=== PATIENT | female | born 1970 | race Caucasian/White ===

== ENCOUNTER 2020-04-03 13:36 | Outpatient (CLI) | payer OTHER, SELFPAY ==
--- NOTE | 2020-04-03 | ECHO_ITS ---
Patient Info Name: Zeny Johnson Age: 49 years : 1970 Gender: Female Ht: 66 in Wt: 273 lbs BSA: 2.47 m2 HR: 88 bpm BP: 127 / 81 mmHg Heart Rhythm: Sinus Rhythm Technical Quality: Good Exam Date: 04/03/2020 2:27 PM Exam Location: [facility] Patient Status: Outpatient Admit Date: 04/03/2020 Staff Ordering Physician: Marlene, Derick BREWER [employer] Attendant: Radha Noble RDCS Attending Provider: Marlene, Derick BREWER Referring Physician: Marlene POSADA; Exam Type: CA echo doppler color flow Study Info Indications - HOUSE Complete two-dimensional, color flow and Doppler transthoracic echocardiogram is performed. Summary 1. Left ventricular chamber dimension is normal. 2. Left ventricular systolic function is normal, estimated at 65-70%. 3. There is mildly increased left ventricular wall thickness. 4. Left ventricular septal wall motion is normal. 5. The left ventricular diastolic function is grade I diastolic dysfunction. 6. In some views, the right ventricular free wall appears to be abnormal. This is probably artifactual but recommend repeat study with Definity/Optison contrast or cardiac MRI for further evaluation. 7. Left atrial chamber dimension is mildly enlarged. 8. There is mild mitral valve regurgitation. 9. There is mild tricuspid valve regurgitation. Left Ventricle Left ventricular chamber dimension is normal. Left ventricular systolic function is normal, estimated at 65-70%. There is mildly increased left ventricular wall thickness. Left ventricular septal wall motion is normal. The left ventricular diastolic function is grade I diastolic dysfunction. Right Ventricle Right ventricular chamber dimension is normal. Right ventricular systolic function is normal. In some views, the right ventricular free wall appears to be abnormal. This is probably artifactual but recommend repeat study with Definity/Optison contrast or cardiac MRI for further evaluation. Left Atria Left atrial chamber dimension is mildly enlarged. Right Atria Right atrial chamber dimension is normal. Atrial Septum Intact interatrial septum visualized by color flow imaging. Aortic Valve The aortic valve is not well visualized. There is no aortic valve stenosis. There is trace aortic valve regurgitation. Pulmonic Valve The pulmonic valve is normal. There is no pulmonic valve stenosis. There is trace pulmonic regurgitation. Mitral Valve The mitral valve has thickened leaflets. There is no mitral valve stenosis. There is mild mitral valve regurgitation. Tricuspid Valve The tricuspid valve leaflets are normal. There is no significant tricuspid valve stenosis. There is mild tricuspid valve regurgitation. No pulmonary hypertension, estimated pulmonary arterial systolic pressure is 16 mmHg. Pericardium/Pleural The pericardium appears epicardial fat pad. There is no pericardial effusion. Inferior Vena Cava Normal inferior vena cava with >50% collapse upon inspiration consistent with normal right atrial pressure, 5 mmHg. Aorta The aortic root size at the sinus of Valsalva is normal. The prox ascending aorta size is normal. Left Ventricular Outflow Tract Name Value Normal LVOT 2D
== END 2020-04-03 13:37 | disposition home or self-care (01) ==
PROVIDERS: PCP Family Medicine; Visit Provider Physician Assistant
DX: R06.00 Dyspnea, unspecified (principal); I51.7 Cardiomegaly; I08.1 Rheumatic disorders of both mitral and tricuspid valves
CPT/HCPCS: 93306

== ENCOUNTER 2020-04-10 11:03 | Outpatient (CLI) | payer OTHER, SELFPAY ==
--- NOTE | 2020-04-15 13:45 | WPDPFTINT ---
PFT Interpretation PFT Interpretation: DOS: 04/10/2020 REQUESTING: DANIELLA Leone REASON FOR TESTING: Dyspnea PULMONARY FUNCTION TESTS Results are reproducible. Spirometry: FEV1 is 85%, normal. FVC 86%. FEV1% is 75%, normal. WAJ97-33% is 60%. No bronchodilator was given. Lung volumes: TLC 91%, normal. RV 89%, normal. Airway resistance is 174%, increased. Diffusion: DLCO 84%, normal. Flow volume loop: Normal. IMPRESSION: Mild increase in airway resistance. Minimal decrease in [id number]% which might represent small airways disease. No bronchodilator was given. A trial of bronchodilator may be considered. Lindsey Hinton MD
== END 2020-04-10 11:04 | disposition home or self-care (01) ==
PROVIDERS: PCP Family Medicine; Visit Provider Physician Assistant
DX: R06.00 Dyspnea, unspecified (principal); R94.2 Abnormal results of pulmonary function studies
CPT/HCPCS: 94375; 94726; 94729

== ENCOUNTER 2020-05-27 10:42 | Outpatient (CLI) | payer OTHER, SELFPAY ==
--- NOTE | ~2020-05-27 | MR_ITS ---
EXAMINATION: MR abdomen wo/w con DATE: 05/27/2020 11:59 INDICATION: Abnormal liver function tests. Liver masses. TECHNIQUE: Magnetic resonance imaging (MRI) of the abdomen was performed without and with 20 mL Multi Jocelyn intravenous contrast. Sequences included coronal T2-weighted FS FSE, coronal and axial FS FIEST A, axial T2-weighted FSE, coronal LAVA-flex, axial STIR FSE, axial DWI, axial dual-echo T1-weighted F SPGR, and axial LAVA. Postcontrast sequences included coronal LAVA-flex and a time course of axial LA VA. COMPARISON: Abdomen MRI 02/27/2019, 07/22/2017 FINDINGS: There is diffuse hepatic steatosis. There is a 7.9 x 5.1 cm mass with interrupted peripheral puddling of contrast in right hepatic lobe, consistent with a hemangioma. There is a 2.2 cm mass in right hep atic lobe with interrupted peripheral puddling of contrast, consistent with a hemangioma. There is an 11 mm hyperenhancing mass in left hepatic lobe, stable from 07/22/2017, consistent with a hemangioma. The gallbladder is absent. The spleen, pancreas, adrenal glands, and kidneys are normal. There are no dilated loops of bowel. There are no pathologically enlarged lymph nodes. There is no free intraperi toneal fluid. Uterine fibroids are noted. IMPRESSION: 1. Stable liver hemangiomas. 2. Diffuse hepatic steatosis. Reviewed, dictated and finalized at location A.
[2020-05-27 11:23] LABS: Estimated Glomerular Filt Rate > 60
[2020-05-27 12:35] LABS: Alanine Aminotransferase 44 U/L (4-35); Albumin Level 4.3 g/dL (3.5-5.1); Alkaline Phosphatase 48 U/L (38-126); Aspartate Amino Transferase 40 U/L (14-36); Bilirubin,Total 0.5 mg/dL (0.2-1.3)
== END 2020-05-27 10:43 | disposition home or self-care (01) ==
LOC: ANHIMG 10:43
PROVIDERS: PCP Family Medicine; Visit Provider Internal Medicine Gastroenterology
DX: R93.2 Abnormal findings on diagnostic imaging of liver and biliary tract (principal); D18.09 Hemangioma of other sites; K76.0 Fatty (change of) liver, not elsewhere classified
CPT/HCPCS: 36415; 74183; 80076; A9577

== ENCOUNTER 2020-09-17 17:42 | Emergency (ER) | payer OTHER, SELFPAY ==
--- NOTE | ~2020-09-17 | XR_ITS ---
EXAMINATION: XR knee RT min 4V DATE: 09/17/2020 18:29 INDICATION: Right knee pain. Injury. TECHNIQUE: 4 views of right knee were obtained. COMPARISON: None. FINDINGS: Bone alignment is normal. No fracture. There is mild tricompartmental osteoarthritis. No kn ee joint effusion. IMPRESSION: 1. Mild right knee osteoarthritis. Reviewed, dictated and finalized at location A. UCT ACCOUNTANT
--- NOTE | ~2020-09-17 | XR_ITS ---
EXAMINATION: XR ankle RT min 3V DATE: 09/17/2020 18:29 INDICATION: Right ankle pain. TECHNIQUE: 4 views of right ankle were obtained. COMPARISON: None. FINDINGS: There is a comminuted fracture of distal tip of the fibula including a nondisplaced transve rse component and a chip fracture component. Joint spaces are normal. There is an enthesophyte at kelvin ntar aspect of calcaneal tuberosity. Ankle soft tissue swelling is noted. IMPRESSION: 1. Comminuted fracture of distal tip of fibula. Reviewed, dictated and finalized at location A. SEAMER
[2020-09-17 17:57] VITALS: BP 125/80; PULSE 88; RESP 18; TEMP 36.3; O2SAT 97
--- NOTE | 2020-09-17 18:16 | ED.LOWEXIN ---
HPI - Extremity Injury (Lower) General Chief Complaint: Extremity Injury, Lower <Kaylyn Johnson PA-C - Last Filed: 09/17/20 19:44> Stated Complaint: right ankle injury <Kaylyn Johnson PA-C - Last Filed: 09/17/20 19:44> Time Seen by Provider: 09/17/20 18:04 <Kaylyn Johnson PA-C - Last Filed: 09/17/20 19:44> Source: patient <Kaylyn Johnson PA-C - Last Filed: 09/17/20 19:44> Mode of arrival: wheelchair <Kaylyn Johnson PA-C - Last Filed: 09/17/20 19:44> Limitations: no limitations <Kaylyn Johnson PA-C - Last Filed: 09/17/20 19:44> History of Present Illness HPI Narrative: This is a 49 year old female that presents to the ER for right ankle pain after an injury today. Reports she tripped and twisted the ankle. Reports she fell forward. Reports since she has had increasing pain and swelling in the ankle. Reports the pain radiates into her knee. Denies hitting her head, loss of consciousness, decreased ROM or numbness. <Kaylyn Johnson PA-C - Last Filed: 09/17/20 19:44> Related Data Allergies/Adverse Reactions: Allergies Allergy/AdvReac Type Severity Reaction Status Date / Time No Known Allergies Allergy Verified 09/17/20 18:00 <Kaylyn Johnson PA-C - Last Filed: 09/17/20 19:44> Review of Systems Review of Systems: Narrative: CONSTITUTIONAL: Denies fever MUSCULOSKELETAL: Reports joint pain, and myalgia. NEUROLOGIC: Denies numbness <Kaylyn Johnson PA-C - Last Filed: 09/17/20 19:44> All systems reviewed & are unremarkable except as noted in HPI and below <Kaylyn Johnson PA-C - Last Filed: 09/17/20 19:44> [facility] Past Medical History Medical History: Medical History (Updated 09/17/20 @ 19:41 by Kaylyn Johnson PA-C) History of hypertension History of rheumatoid arthritis History of sleep apnea <Kaylyn Johnson PA-C - Last Filed: 09/17/20 19:44> Exam Narrative: Exam Narrative: GENERAL: Well-appearing, well-nourished, and in no acute distress. HEAD: Normocephalic, atraumatic. EYES: EOMI. EXTREMITIES: Normal range of motion. Mild edema about the right lateral ankle. Normal DP pulses. Normal sensation SKIN: Warm, dry, no rash. NEURO: No focal deficits. Alert and oriented x3. PSYCH: Normal mood and affect <Kaylyn Johnson PA-C - Last Filed: 09/17/20 19:44> Course Vital Signs Vital signs: Vital Signs Temperature 36.3 C L 09/17/20 17:57 Pulse Rate 88 09/17/20 17:57 Respiratory Rate 18 09/17/20 17:57 Blood Pressure 125/80 09/17/20 17:57 Pulse Oximetry 97 09/17/20 17:57 Temperature 36.3 C L 09/17/20 17:57 Pulse Rate 88 09/17/20 17:57 Respiratory Rate 18 09/17/20 17:57 Blood Pressure 125/80 09/17/20 17:57 Pulse Oximetry 97 09/17/20 17:57 <Kaylyn Johnson PA-C - Last Filed: 09/17/20 19:44> Vital Signs Temperature 36.3 C L 09/17/20 17:57 Pulse Rate 88 09/17/20 17:57 Respiratory Rate 18 09/17/20 17:57 Blood Pressure 125/80 09/17/20 17:57 Pulse Oximetry 97 09/17/20 17:57 Temperature 36.3 C L 09/17/20 17:57 Pulse Rate 88 09/17/20 17:57 Respiratory Rate 18 09/17/20 17:57 Blood Pressure 125/80 09/17/20 17:57 Pulse Oximetry 97 09/17/20 17:57 <Ariana Brooks MD - Last Filed: 09/17/20 19:49> MDM - Extremity Injury (Lower) MDM Narrative Medical decision making narrative: Patient presents the emergency department for right ankle pain after an injury today. Right ankle x-ray shows a comminuted fracture of the distal tip of the fibula. Right knee x-rays without acute findings. Patient placed in a splint and given crutches. Will be given orthopedics for follow-up. Patient was given warnings to return to the ER <Kaylyn Johnson PA-C - Last Filed: 09/17/20 19:44> Imaging Data Radiologist's impression: ITS Impressions Ankle X-Ray 09/17/20 18:31 IMPRESSION: 1. Comminuted fracture of distal tip of fibula. Knee X-Ray 09/17/20 18:32 IMP
[2020-09-17] MEDS: HYDROcodone/acetaminophen (*CRX) 5-325 MG TABLET 1 TAB PO (19:18)
[2020-09-17 20:15] VITALS: BP 176/103; PULSE 88; RESP 16; TEMP 36.9; O2SAT 96
== END 2020-09-17 20:16 | disposition home or self-care (01) ==
PROVIDERS: Emergency Provider Emergency Medicine; PCP Family Medicine
DX: S82.831A Other fracture of upper and lower end of right fibula, initial encounter for closed fracture (principal); I10 Essential (primary) hypertension; M06.9 Rheumatoid arthritis, unspecified; G47.30 Sleep apnea, unspecified
CPT/HCPCS: 29515; 73564; 73610; 99284; A9270

== ENCOUNTER 2021-04-14 10:58 | Emergency (ER) | payer OTHER, SELFPAY ==
--- NOTE | ~2021-04-14 | XR_ITS ---
EXAMINATION: XR ankle LT min 3V DATE: 04/14/2021 11:29 INDICATION: Left ankle injury and pain. TECHNIQUE: 4 views of left ankle were obtained. COMPARISON: None. FINDINGS: There is a transverse fracture of lateral malleolus 5 mm distal to the level of the tibial plafond . The distal fracture fragment demonstrates 3 mm lateral displacement. Joint spaces are shereen l. There is an enthesophyte at plantar aspect of calcaneal tuberosity. There is ankle soft tissue swe lling. IMPRESSION: 1. Transverse fracture of lateral malleolus. Reviewed, dictated and finalized at location A.
--- NOTE | ~2021-04-14 | XR_ITS ---
EXAMINATION: XR tibia fibula LT 2V DATE: 04/14/2021 12:18 INDICATION: Left fibular fracture. TECHNIQUE: 2 views of left tibia and fibula were obtained. COMPARISON: Left ankle radiographs 04/14/2021. FINDINGS: There is a transverse fracture of distal fibula with medial aspect of the fracture line 5 m m distal to the level of the tibial plafond. The distal fracture fragment demonstrates 3 mm lateral d isplacement. There is mild left knee osteoarthritis. IMPRESSION: 1. Transverse fracture of lateral malleolus. 2. Mild left knee osteoarthritis. Reviewed, dictated and finalized at location A.
[2021-04-14 11:08] VITALS: BP 152/97; PULSE 88; RESP 18; TEMP 36.3; O2SAT 100
--- NOTE | 2021-04-14 12:15 | ED.LOWEXIN ---
HPI - Extremity Injury (Lower) General Chief Complaint: Extremity Injury, Lower Stated Complaint: fall with leg injury Time Seen by Provider: 04/14/21 11:54 Source: patient Mode of arrival: wheelchair Limitations: no limitations History of Present Illness HPI Narrative: This is a 50-year-old female that presents to the emergency department for left ankle pain after an injury today. Reports she tripped walking down the steps and fell down 2 steps. Reports superficial abrasions of the legs and arms. She is up-to-date on tetanus. Also reports a left ankle injury. Pain is worse with movement and relieved with rest. Reports decreased range of motion due to pain. Denies hitting her head, loss of consciousness, weakness, or numbness. Related Data Home Medications Medication Instructions Recorded Confirmed adalimumab 40 mg/0.8 mL See Rx Instructions SUBCUT .COMPLEX 12/19/20 12/19/20 subcutaneous syringe kit ascorbate calcium (vitamin C) 500 500 mg PO DAILY 12/19/20 12/19/20 mg tablet galcanezumab-gnlm 120 mg/mL 120 mg SUBCUT MONTHLY 12/19/20 12/19/20 subcutaneous pen injector hydroxychloroquine 200 mg tablet 200 mg PO DAILY 12/19/20 12/19/20 ketorolac 10 mg tablet 10 mg PO Q6H PRN 12/19/20 12/19/20 lisinopril 10 mg tablet 10 mg PO DAILY 12/19/20 12/19/20 lorazepam 0.5 mg tablet 0.5 mg PO DAILY PRN 12/19/20 12/19/20 propranolol 80 mg tablet 80 mg PO Q12H 12/19/20 12/19/20 sulfasalazine 500 mg tablet 0.5 g PO Q6H 12/19/20 12/19/20 ubrogepant 50 mg tablet 50 mg PO ONCE 12/19/20 12/19/20 venlafaxine 150 mg 150 mg PO DAILY 12/19/20 12/19/20 capsule,extended release 24 hr Allergies Allergy/AdvReac Type Severity Reaction Status Date / Time No Known Allergies Allergy Verified 09/17/20 18:00 Review of Systems Review of Systems: Narrative: CONSTITUTIONAL: Denies fever EYES: Denies visual changes GASTROINTESTINAL: Denies vomiting SKIN: Reports abrasion MUSCULOSKELETAL: Reports joint pain and myalgia. Denies back pain NEUROLOGIC: Denies headache, numbness, or weakness. All systems reviewed & are unremarkable except as noted in HPI and below PMFSH Past Medical History Medical History Fracture of lateral malleolus of right ankle History of hypertension History of rheumatoid arthritis History of sleep apnea Exam Narrative: Exam Narrative: GENERAL: Well-appearing, obese, and in no acute distress. HEAD: Normocephalic, atraumatic. EYES: EOMI. CHEST: Clear to auscultation. No respiratory distress. No wheezes rales or rhonchi HEART: Regular rate and rhythm. No murmur heard. Normal peripheral pulses. EXTREMITIES: Normal range of motion, except decreased range of motion in the left ankle due to pain. Mild edema about the left lateral malleoli, tender to palpation. Normal DP pulses. Normal sensation SKIN: Warm, dry, no rash. NEURO: No focal deficits. Alert and oriented x3. PSYCH: Normal mood and affect Course Vital Signs Vital signs: Vital Signs Temperature 97.4 F L 04/14/21 11:08 Pulse Rate 88 04/14/21 11:08 Respiratory Rate 18 04/14/21 11:08 Blood Pressure 152/97 H 04/14/21 11:08 Pulse Oximetry 100 04/14/21 11:08 Temperature 97.4 F L 04/14/21 11:08 Pulse Rate 88 04/14/21 11:08 Respiratory Rate 18 04/14/21 11:08 Blood Pressure 152/97 H 04/14/21 11:08 Pulse Oximetry 100 04/14/21 11:08 Procedures Orthopedic Splinting/Casting Injury #1: Splinting/Casting Date: 04/14/21 Splinting/Casting Time: 13:16 Side: left Lower Extremity Injury Location: ankle Lower Extremity Immobilizer: posterior splint Splint: customized in ED OCL: posterior Pre-Procedure Neuro Vascular Exam: normal Post-Procedure Neuro Vascular Exam: normal MDM - Extremity Injury (Lower) MDM Narrative Medical decision making narrative: Patient presents to the emergency department for left ankle pain after a
[2021-04-14] MEDS: HYDROcodone/acetaminophen (*CRX) 5-325 MG TABLET 1 TAB PO (12:37)
== END 2021-04-14 13:59 | disposition home or self-care (01) ==
PROVIDERS: Emergency Provider Emergency Medicine; PCP Family Medicine
DX: S82.62XA Displaced fracture of lateral malleolus of left fibula, initial encounter for closed fracture (principal); I10 Essential (primary) hypertension; M06.9 Rheumatoid arthritis, unspecified; G47.30 Sleep apnea, unspecified; M17.12 Unilateral primary osteoarthritis, left knee; W10.9XXA Fall (on) (from) unspecified stairs and steps, initial encounter
CPT/HCPCS: 29515; 73590; 73610; 99284; A9270

== ENCOUNTER → 2021-04-18 02:36 | Outpatient (CLI) | payer OTHER, SELFPAY ==
[2021-04-18 18:15] LABS: SARS-CoV-2 RNA PCR Negative
== END ==
PROVIDERS: PCP Family Medicine; Visit Provider Orthopaedic Surgery
DX: Z01.812 Encounter for preprocedural laboratory examination (principal); Z20.822 Contact with and (suspected) exposure to COVID-19
CPT/HCPCS: C9803; U0003; U0005

== ENCOUNTER 2021-04-18 08:41 | Outpatient (CLI) | payer OTHER, SELFPAY ==
[2021-04-18 09:24] LABS: Anion Gap 7 mmol/L (8-16); Blood Urea Nitrogen 13 mg/dL (7-17); Calcium 9.5 mg/dL (8.4-10.2); Carbon Dioxide 27 mmol/L (22-30); Chloride 106 mmol/L (98-107); Estimated Glomerular Filt Rate > 60; Glucose 100 mg/dL (65-105); Potassium 4.2 mmol/L (3.4-5.0); Sodium 140 mmol/L (137-145)
--- NOTE | 2021-04-18 10:30 | ECG_ITS ---
Measurements Intervals [address] Rate: 73 P: 24 [place]: 174 QRS: 39 QRSD: 95 T: 37 QT: 404 QTc: 447 Interpretive Statements SINUS RHYTHM MINIMAL Q WAVES- HIGH LATERAL LEADS BASELINE ARTIFACT- III BORDERLINE ECG Electronically Signed On 04-18-2021 9:16:24 CDT by Kenan Livingston D.O.
== END 2021-04-18 08:42 | disposition home or self-care (01) ==
PROVIDERS: Anesthesiology; PCP Family Medicine; Visit Provider Orthopaedic Surgery
DX: I10 Essential (primary) hypertension (principal); Z79.899 Other long term (current) drug therapy; Z01.818 Encounter for other preprocedural examination; R94.31 Abnormal electrocardiogram [ECG] [EKG]
CPT/HCPCS: 36415; 80048; 93005

== ENCOUNTER 2021-04-21 01:14 | Day surgery (SDC) | payer OTHER, SELFPAY ==
[2021-04-16 14:08] VITALS: BMI 45.6
[2021-04-21] VITALS (9 sets, daily range): BP systolic 122–137; BP diastolic 67–86; PULSE 66–82; RESP 16–21; TEMP 36.1–36.6; O2SAT 94–100; BMI 46.7
--- NOTE | ~2021-04-21 | XR_ITS ---
EXAMINATION: XR surgery orthopedic DATE: 04/21/2021 15:58 INDICATION: ORIF left ankle fracture. TECHNIQUE: AP, lateral and mortise views of the left ankle were obtained during procedure performed cory Manuel. Radiologist was not present for the imaging or procedure. The amount of fluoroscopy ti me used during this procedure was 0.3 minutes. COMPARISON: None. FINDINGS: There is a transverse fracture across the lateral malleolus located a few millimeter below the level of the tibiotalar joint line. Lateral collateral plate and screw fixation of the fracture w hich is in essentially anatomic alignment. There is some residual lucency along the fracture plane. N o other fracture identified. Ankle mortise is normal with mild lateral sided nonuniform joint space n arrowing. Soft tissues are unremarkable. IMPRESSION: 1. Essentially anatomic alignment post open reduction internal fixation of a lateral malleolar fractu re at the left ankle. Reviewed, dictated and finalized at location A. IMPRESSION: 1. Essentially anatomic alignment post open reduction internal fixation of a la teral malleolar fracture at the left ankle.
[2021-04-21] MEDS: ACETAMINOPHEN 500 MG TABLET 1000 MG PO (13:08)
[2021-04-21] MEDS: KETOROLAC 15 MG/ML VIAL (*BKC) IV PUSH (13:26)
[2021-04-21] MEDS: LACTATED RINGERS 1,000 ML 30 ML IV CONT ×2 (13:30→15:58)
--- NOTE | 2021-04-21 13:36 | WPDANESEPPF ---
Anes - Initial Pre Proc Eval Procedure: Operation Date: 04/21/21 14:30 Proposed Procedures p Open Reduction Internal Fixation Lateral Malleolus Left Ankle Fracture - Baljit Omalley MD Date/Time: 04/21/21 13:36 Surgeon: Baljit Omalley MD Pre Op Diagnosis: Left ankle Fracture Patient Data Age: 50 Gender: F Height: 1.68 m Weight: 131.2 kg Allergies Allergy/AdvReac Type Severity Reaction Status Date / Time No Known Allergies Allergy Verified 04/21/21 12:45 Home Medications Medication Instructions Recorded Confirmed Type adalimumab 40 mg/0.8 mL See Rx Instructions SUBCUT .COMPLEX 12/19/20 04/16/21 History subcutaneous syringe kit hydroxychloroquine 200 mg tablet 200 mg PO DAILY 12/19/20 04/16/21 History ketorolac 10 mg tablet 10 mg PO Q6H PRN 12/19/20 04/21/21 History lorazepam 0.5 mg tablet 0.5 mg PO DAILY PRN 12/19/20 04/16/21 History propranolol 80 mg tablet 80 mg PO HS 12/19/20 04/16/21 History sulfasalazine 500 mg tablet 1 g PO BID 12/19/20 04/21/21 History ubrogepant 50 mg tablet 50 mg PO ONCE 12/19/20 04/16/21 History venlafaxine 150 mg 150 mg PO DAILY 12/19/20 04/21/21 History capsule,extended release 24 hr hydrocodone 5 mg-acetaminophen 325 1 tablet PO Q6H PRN #14 tablet 04/16/21 04/16/21 Rx mg tablet lisinopril-hydrochlorothiazide 1 tablet PO DAILY 04/16/21 04/21/21 History multivitamin 1 tablet PO DAILY 04/16/21 04/21/21 History Patient hx anesthesia problems: none Family hx anesthesia problems: none PMFSH Past Medical History Medical History (Updated 04/21/21 @ 13:38 by Bakari Herring MD) Carpal tunnel syndrome 2020 Fracture of lateral malleolus of right ankle Fracture of left ankle, lateral malleolus History of hypertension History of rheumatoid arthritis History of sleep apnea Morbid obesity with BMI of 40.0-44.9, adult Surgical History Surgical History (Updated 04/16/21 @ 11:19 by Baljit Omalley MD) H/O hernia repair History of appendectomy History of cholecystectomy History of left hip replacement 2005 Family History Family History Other Asthma Cancer Cerebrovascular accident Heart disease Social History Social History Smoking status: Never smoker Alcohol intake: current Drinks per week: 2 Substance use: never Substance use type: does not use Living arrangements: with family 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 Questions were solicited and answers provided to the satisfaction of the patient/family/POA.
--- NOTE | 2021-04-21 13:38 | WPDANESPNB ---
Anes - Peripheral Nerve Block Date/Time: 04/21/21 13:38 I have discussed with the patient/family/POA the placement of a peripheral nerve block for post-operative pain management, including associated risks, benefits, complications, and side effects. Alternative methods of post-operative analgesia were detailed. Questions were solicited and answers provided to the satisfaction of the patient/family/POA. Time-Out: A pre-procedural Time-Out was completed immediately before starting the procedure and confirmed: Patient Identification, Site, Procedure, Patient Position and the Availability of Requisite Equipment. Clinical Indications: Acute post-operative pain management requested by the operative surgeon. Nerve Block Insertion Note Anes-nerve block: posterior fossa sciatic (20cc) left and adductor canal (10cc) left Patient position: supine Skin prep: chlorhexidine Needle: 22 gauge, stimulating, insulated echogenic needle. Needle length: 80 mm Technique: ultrasound (in plane) Injectate: bupivacaine 0.5% with epi 5 mcg/ml (20cc) Observations: tolerated well Complications: none Procedure start time:: 1435 Procedure end time:: 1440
--- NOTE | 2021-04-21 14:20 | WPDHPUPDATE1 ---
History and Physical Update Update Date/Time: 04/21/21 14:20 History and Physical has been reviewed, including an updated exam of the patient. There are NO changes in the patient's condition. Risks, benefits, and alternatives have been discussed and questions answered. Patient agrees to proceed with procedure.
--- NOTE | 2021-04-21 16:07 | W.PM.PROC2 ---
Procedure Note - Detailed Date of Procedure 04/21/21 Pre-op Diagnosis Left ankle Fracture - lateral malleolus Post-op Diagnosis same Procedure Performed ORIF left lateral malleolus fracture Surgeon Baljit Omalley MD [employer] Jeannette Castro Anesthesia general and regional Indications See H&P Description of Procedure The patient was identified and proper site identified. In the preoperative holding area, the anesthesia team performed a left lower leg block. She was then taken to the operating room and transferred to the OR table placing her supine taking care to pad her torso extremities. After general anesthetic induction and intubation, a nonsterile her us placed high on the left thigh. The left lower extremity was positioned, prepped and draped in usual sterile fashion. The extremity was exsanguinated and tourniquet inflated. Longitudinal incision is made over the distal fibula laterally. Subcutaneous tissue sharply dissected down to the fracture. The fracture was cleared of debris able to be reduced anatomically securing it provisionally with a K-wire. This allowed for the lateral distal fibular locking hook plate from the Arthrex set to be applied with fluoroscopic control while holding the lateral malleolar fracture anatomically reduced. The reduction and hardware placement was assessed fluoroscopically in the AP, mortise, and lateral views. The talus was position anatomically and the mortise. Hardware placement was satisfactory. Wounds irrigated with sterile saline. The skin was reapproximated with two strata fix subcuticular stitch and renard. Sterile dressing was applied. A well-padded stirrup type ankle splint was applied with the ankle in a neutral position. Tourniquet was released. Patient was awakened, extubated taken to recovery in stable condition. There were no known intraoperative complications. Estimated blood loss was negligible Estimated Blood Loss 3 Drains No Packing No Pathology none sent Complications No immediate complications Condition stable Disposition PACU
[2021-04-21] MEDS: fentaNYL CITRATE INJ (*CRX) 100 MCG/2 ML VIAL 25 MCG IV PUSH ×3 (16:22→16:46)
== END 2021-04-21 17:49 | disposition home or self-care (01) ==
PROVIDERS: PCP Family Medicine; Visit Provider Orthopaedic Surgery
PROC: (CPT 27792; principal; 2021-04-21 14:30)
DX: S82.62XA Displaced fracture of lateral malleolus of left fibula, initial encounter for closed fracture (principal); G89.18 Other acute postprocedural pain; W10.9XXA Fall (on) (from) unspecified stairs and steps, initial encounter; I10 Essential (primary) hypertension; M06.9 Rheumatoid arthritis, unspecified; G47.30 Sleep apnea, unspecified; E66.01 Morbid (severe) obesity due to excess calories; Z68.42 Body mass index [BMI] 45.0-49.9, adult
CPT/HCPCS: 27792; 64447; 64445; 36415; 80048; 93005; A9270; C1713; C1769; C9803; J1100; J1885; J2250; J2405; J2704; J3010; J7120; U0003; U0005

== ENCOUNTER 2021-10-16 16:19 | Outpatient (CLI) | payer OTHER, SELFPAY ==
--- NOTE | ~2021-10-16 | MR_ITS ---
EXAMINATION: MR abdomen wo/w con DATE: 10/16/2021 17:31 INDICATION: Liver mass. Abnormal imaging of liver. TECHNIQUE: Magnetic resonance imaging (MRI) of the abdomen was performed without and with 20 mL Multi Jocelyn intravenous contrast. Sequences included coronal T2-weighted FS FSE, coronal and axial FS FIEST A, axial T2-weighted FSE, coronal LAVA-flex, axial STIR FSE, axial DWI, axial dual-echo T1-weighted F SPGR, and axial LAVA. Postcontrast sequences included coronal LAVA-flex and a time course of axial LA VA. COMPARISON: Abdomen MRI 05/27/2020 FINDINGS: There is diffuse hepatic steatosis. In the right hepatic lobe, there is a 6.1 x 3.7 cm mass with inte rrupted peripheral puddling of contrast, consistent with a hemangioma. There are 12 mm and 8 mm hyper enhancing masses in the liver. The gallbladder is absent. The spleen, pancreas, adrenal glands, and k idneys are normal. There are no dilated loops of bowel. There is a 2.3 x 1.8 cm lymph node in the for amen of [place]. There is no free intraperitoneal fluid. IMPRESSION: 1. Stable liver masses, consistent with hemangiomas. 2. Diffuse hepatic steatosis. 3. Stable enlarged periportal lymph node, likely reactive. Reviewed, dictated and finalized at location A. CAL SERVICES COORDINATOR
[2021-10-16 16:48] LABS: Estimated Glomerular Filt Rate > 60
== END 2021-10-16 16:20 | disposition home or self-care (01) ==
LOC: ANHIMG 16:26
PROVIDERS: PCP Family Medicine; Visit Provider Internal Medicine Gastroenterology
DX: R93.2 Abnormal findings on diagnostic imaging of liver and biliary tract (principal); K76.0 Fatty (change of) liver, not elsewhere classified; K76.89 Other specified diseases of liver
CPT/HCPCS: 74183; A9577

== ENCOUNTER → 2022-06-24 12:46 | Outpatient (CLI) | payer OTHER, SELFPAY ==
--- NOTE | ~2022-06-24 | US_ITS ---
EXAMINATION: US right upper quadrant DATE: 06/24/2022 13:10 INDICATION: Elevated LFTs TECHNIQUE: Multiple grayscale and Doppler ultrasound images of the right upper quadrant were obtained . COMPARISON: 07/16/2017. MR abdomen 10/16/2021 FINDINGS: Suboptimal visualization of the pancreatic tail, visualized portions are within normal limi ts. Echogenic liver with normal echotexture and no surface nodularity. Multiple echogenic foci in the liver corresponding to previously documented hemangiomas. Normal hepatopetal flow in the main portal vein. Surgically absent gallbladder. The normal common bile duct measures 5 mm. There was no sonogra phic Cool sign. The visualized portions of the aorta and inferior vena cava are normal. The right kidney measures 10.5 cm. The right kidney demonstrate normal parenchymal echogenicity. Ther e is no hydronephrosis. IMPRESSION: Steatotic liver with hemangiomas. Status post cholecystectomy. Reviewed, dictated and finalized at location K.
== END ==
PROVIDERS: PCP Family Medicine; Visit Provider Physician Assistant
DX: R79.89 Other specified abnormal findings of blood chemistry (principal); Z90.49 Acquired absence of other specified parts of digestive tract
CPT/HCPCS: 76705

== ENCOUNTER → 2022-09-07 15:18 | Outpatient (CLI) | payer OTHER, SELFPAY ==
--- NOTE | ~2022-09-07 | DEXA_ITS ---
Bone Density Report Name: MESERET WOLFE Age: 51 Sex: Female Ethnicity: White Date of : 1970 Indication: height loss; prior fracture; asthma or emphysema; rheumatoid arthritis; Referring Provider: DANIA, KAMRON Rodriguez Study: Bone densitometry was performed. Exam Date: September 07, 2022 Accession number: [id number] Bone Density: Region BMD T-score Z-score Classification AP Spine (L1-L4) 1.052 0.0 0.8 Normal Femoral Neck (Right) 0.809 -0.4 0.4 Normal Total Hip (Right) 1.072 1.1 1.5 Normal World Health Organization criteria for BMD impression classify patients as: Normal (T-score at or above -1.0), Osteopenia (T-score between -1.0 and -2.5), or Osteoporosis (T-score at or below -2.5). 10-year Fracture Risk: FRAX not reported because: Premenopausal woman All T-scores for Spine Total, Hip Total, Femoral Neck at or above -1.0 Clinical Information Provided by Patient: Has had a low trauma fracture Has rheumatoid arthritis Has the following medical conditions: Asthma or Emphysema Patient maximum height was 66 No regular weight bearing exercise Drinks caffeinated beverages Onset of menses at age 14 Premenopausal Number of children 3 Impression: The patient's bone mass is within expected range for age, gender and ethnicity. The patient has risk factors, including: previous fracture. Discussion: BONE DENSITY IS WITHIN EXPECTED LIMITS FOR AGE, SEX AND RACE. Bone density is within expected limits for age, sex and race at all sites measured. The patient should follow a healthful lifestyle (good nutrition with adequate calcium and vitamin D, and appropriate weight-bearing exercise). Follow-Up: Consider repeating this study in 5 years or sooner if there is some new clinical indication. Reported by: [facility] on 09/07/2022 3:41:00 PM. Reviewed, dictated and finalized at location AMarina DICKEY
== END ==
PROVIDERS: PCP Family Medicine; Visit Provider Family Medicine
DX: M85.80 Other specified disorders of bone density and structure, unspecified site (principal)
CPT/HCPCS: 77080

== ENCOUNTER → 2023-08-03 15:25 | Outpatient (CLI) | payer OTHER, SELFPAY ==
--- NOTE | ~2023-08-03 | CT_ITS ---
EXAMINATION: CT abdomen pelvis wo con DATE: 08/03/2023 15:35 INDICATION: Generalized abdominal pain for 3 to 4 months. Nausea. TECHNIQUE: Computed tomography (CT) of the abdomen and pelvis was performed without intravenous contr ast. Automated exposure control and iterative reconstruction technique were employed. Exam dose: 109 7.45 mGy-cm total exam DLP. COMPARISON: 06/24/2022 right upper quadrant abdominal ultrasound examination 10/2000 MRI abdomen FINDINGS: There is an approximately 5 mm indeterminate right lower lobe opacity (series 4 image 17). The lung bases otherwise are clear of infiltrate or consolidation. Normal heart size. No pericardial or pleural effusion. No suspicious hepatic space-occupying mass lesion. Status post cholecystectomy. No bile duct dilatati on. Normal splenic size. No pancreatic mass lesion, calcification or ductal dilatation. Normal morphology of the adrenal glands. No renal mass lesion or urinary tract calculus or hydroureteronephrosis. There is uterine enlargement, uterus measures approximately 13 cm from nipple and up to 9.4 cm john posterior dimension, with some lobularity of the uterine outline, likely due to fibroids. The adnexal areas are unremarkable. Normal caliber of the abdominal aorta. No intraperitoneal or retroperitoneal or pelvic mass lesion or adenopathy or ascites. Status post left total hip arthroplasty. IMPRESSIONS: 5 mm indeterminate right lower lobe lung opacity. Six-month CT follow-up is recommended Status post cholecystectomy Status post anterior abdominal wall mesh repair Diverticulosis of the colon; no CT evidence of diverticulitis Fibroid enlarged uterus Reviewed, dictated and finalized at Location A. Reviewed, dictated and finalized at location A. IMPRESSIONS: 5 mm indeterminate right lower lobe lung opacity. Six-month CT fol low-up is recommended Status post cholecystectomy Status post anterior abdominal wall mesh repair Diverticulosis of the colon; no CT evidence of diverticulitis Fibroid enlarged uterus
== END ==
PROVIDERS: PCP Family Medicine; Visit Provider Family Medicine
DX: R10.9 Unspecified abdominal pain (principal); R91.8 Other nonspecific abnormal finding of lung field; Z90.49 Acquired absence of other specified parts of digestive tract; K57.30 Diverticulosis of large intestine without perforation or abscess without bleeding; D25.9 Leiomyoma of uterus, unspecified
CPT/HCPCS: 74176

== ENCOUNTER 2024-01-27 15:39 | Outpatient (CLI) | payer OTHER, SELFPAY ==
--- NOTE | ~2024-01-27 | CT_ITS ---
EXAMINATION: CT diagnostic chest wo con DATE: 01/27/2024 15:59 INDICATION: Pulmonary nodule. TECHNIQUE: Computed tomography (CT) of the chest was performed without intravenous contrast. The dose -length product was 455.27 mGy-cm. Automated exposure control and iterative reconstruction technique were employed. COMPARISON: CT dated 08/03/2023 FINDINGS: Heart size normal. No significant pleural or pericardial effusion. There are cholecystectom y clips. Stable low-density lesion right hepatic lobe, most likely benign. Stable 5 mm right lower lo be nodule, image 82. There is a 2 mm fissural nodule on the right, likely benign. No focal airspace c onsolidation. No pneumothorax. Mild thoracic spondylosis. IMPRESSION: 1. Stable 5 mm right lower lobe nodule measuring 5 mm, likely benign. Follow-up low dose CT chest in 12 months recommended. Reviewed, dictated and finalized at location A.
== END 2024-01-27 15:40 ==
PROVIDERS: PCP Family Medicine; Visit Provider Family Medicine
DX: R91.1 Solitary pulmonary nodule (principal)
CPT/HCPCS: 71250

== ENCOUNTER 2024-06-12 01:14 | Day surgery (SDC) | payer OTHER, SELFPAY ==
--- NOTE | 2024-06-04 09:43 | PM.IMHP ---
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 Review of Systems Review of Systems: All systems reviewed & are unremarkable except as noted in HPI and below PMFSH Past Medical History Medical History Carpal tunnel syndrome 2020 Degenerative arthritis of knee, bilateral Fracture of lateral malleolus of right ankle History of hypertension History of rheumatoid arthritis History of sleep apnea Morbid obesity with BMI of 40.0-44.9, adult Surgical History Surgical History Fracture of left ankle, lateral malleolus ORIF left lateral malleolus April 21, 2021 H/O hernia repair History of appendectomy History of cholecystectomy History of left hip replacement 2005 Family History Family History Other Asthma Cancer Cerebrovascular accident Heart disease Social History Social History Smoking status: Never smoker Alcohol intake: current Drinks per week: 2 Substance use: never Substance use type: does not use Lack of Transportation: No Lack of Food: Never True Current Housing: I Have Housing Concerned About Future Housing: No Difficulty Paying Gas/Electric Bills: No Difficulty Paying for Meds: No Currently Unemployed: No Education: Bachelor's Degree Difficulty w/ Childcare or Family Care: No Living arrangements: with family Occupation/Education: occupation 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 Gender identity (if verbalized by the patient): Female Spiritual care concerns: No Meds Home Medications and Allergies Home Medications Medication Instructions Recorded Confirmed Type adalimumab 40 mg/0.8 mL See Rx Instructions subcut .COMPLEX 12/19/20 06/16/23 History subcutaneous syringe kit (Humira) lorazepam 0.5 mg tablet 0.5 mg PO DAILY PRN Anxiety 12/19/20 06/16/23 History ubrogepant 50 mg tablet (Ubrelvy) 50 mg PO ONCE 12/19/20 06/16/23 History venlafaxine 150 mg 150 mg PO DAILY 12/19/20 06/16/23 History capsule,extended release 24 hr (Effexor XR) lisinopril 10 1 tablet PO DAILY 04/16/21 06/16/23 History mg-hydrochlorothiazide 12.5 mg tablet erenumab-aooe 140 mg/mL 140 mg subcut MONTHLY 06/05/21 06/16/23 History subcutaneous auto-injector (Aimovig Autoinjector) fesoterodine 8 mg tablet,extended 8 mg PO DAILY 02/17/23 06/16/23 History release 24 hr (Toviaz) hydroxychloroquine 100 mg tablet 100 mg PO BID 06/16/23 06/16/23 History Allergies Allergy/AdvReac Type Severity Reaction Status Date / Time zolpidem [From Ambien] Allergy Severe itching, Verified 06/16/23 09:10 anxiety Exam Narrative: no acute distress alert and oriented x3 component of pelvic organ prolapse which is asymptomatic urethral mobility Assessment and Plan Assessment and plan (1) Intrinsic sphincter deficiency (ISD): Code(s): N36.42 - Intrinsic sphincter deficiency (ISD) Status: Acute Assessment and Plan: plan for bulking agent. Not a sling candidate due to body habitus. Understands the risk of bleeding, infection, need for repeat procedures, urinary retention, lack of efficacy. Agrees to proceed
[2024-06-06 14:35] VITALS: BMI 42.8
--- NOTE | 2024-06-06 14:43 | PC.NURSE ---
Addendum entered by Santana Knapp RN 06/06/24 15:11: Please inquire of Dr Park's office if OK to take Diclofenac. Original Note: Report to the Outpatient Waiting Room, entrance under the green pavilion located off [facility], at time _0900_ on date _[id number]_. Planned Procedure Time: _1100_. Time changes happen often and if your time is changed the preop area will call you the afternoon before. - You and your visitor will be asked to self-screen and do not enter if you have any COVID symptoms. - A mask is optional within the hospital at this time. Patients may have clear liquids (water, carbonated beverages, clear teas, apple juice) until 3 hours prior to surgery with a maximum of 20 ounces. - No food from midnight until time of surgery Take the following medications with a SIP of water the morning of surgery: __Gabapentin and if needed Lorazepam. DO NOT STOP ANY OF YOUR OTHER PRESCRIPTION MEDICATIONS PRIOR TO SURGERY ?EXCEPT THE FOLLOWING Medications to discontinue per physician ____Took last dose of Semaglutide [id number] Date to take last dose Please no make-up, nail faroese, hairspray, perfume, deodorant, or body powder the day of surgery. No jewelry (including any body piercings) or valuables the day of surgery, leave them at home. Please take a shower or bath the night before, or the morning of, surgery with an antibacterial soap. Wear comfortable, loose fitting clothing. - Jewelry must be removed prior to entering the operating room. Rings and piercings that are not removed may be cut off. - The hospital will not accept responsibility for valuables. - Please leave all valuables, including medications, at home the day of surgery. If you are going home after surgery, a licensed port c[place] a driver must drive you home. - NO public transportation without another adult if you receive anesthesia. - We recommend that an adult stay with you for 24 hours following discharge. - We also recommend that you do not drive, make important decision, drink alcoholic beverages, or take any drugs that were not prescribed by your health care provider for at least 24 hours after your discharge time. Follow any additional instructions given to you from your surgeon. If you or anyone in your household have experienced Covid symptoms in the past week, please notify your surgeon or the nurse liaison at the phone number below for possible testing. Telephone instructions given to __Theresa__and asked if any additional questions and then verbalized understanding. Patient advised to call surgeon office or pre surgery nurse liaison [phone] if any additional questions.
[2024-06-12] VITALS (7 sets, daily range): BP systolic 110–132; BP diastolic 75–85; PULSE 74–88; RESP 10–18; TEMP 36.1–36.3; O2SAT 97–99
--- NOTE | 2024-06-12 04:34 | WPDHPUPDATE1 ---
History and Physical Update Update Date/Time: 06/12/24 04:34 History and Physical has been reviewed, including an updated exam of the patient. There are NO changes in the patient's condition. Risks, benefits, and alternatives have been discussed and questions answered. Patient agrees to proceed with procedure.
--- NOTE | 2024-06-12 07:11 | WPDHPUPDATE1 ---
History and Physical Update Update Date/Time: 06/12/24 07:11 History and Physical has been reviewed, including an updated exam of the patient. There are NO changes in the patient's condition. Risks, benefits, and alternatives have been discussed and questions answered. Patient agrees to proceed with procedure.
[2024-06-12 09:56] LABS: BEDSIDEPREGUCG Negative
[2024-06-12] MEDS: LACTATED RINGERS 1,000 ML 30 ML IV CONT ×2 (10:00→11:33)
[2024-06-12 10:27] LABS: Anion Gap 8 mmol/L (4-12); Blood Urea Nitrogen 13 mg/dL (7-17); Calcium 8.7 mg/dL (8.4-10.2); Carbon Dioxide 26 mmol/L (22-30); Chloride 101 mmol/L (98-107); Estimated CRCL calculation 125 ml/min; Estimated Glomerular Filt Rate > 60; Glucose 90 mg/dL (65-110); Potassium 4.1 mmol/L (3.4-5.0); Sodium 135 mmol/L (137-145)
--- NOTE | 2024-06-12 10:55 | WPDANESEPPF ---
Anes - Initial Pre Proc Eval Procedure: Operation Date: 06/12/24 11:00 Proposed Procedures p Cystoscopy, Injection Bulking Agent - Sarath Park MD Date/Time: 06/12/24 10:55 Surgeon: Sarath Park MD Pre Op Diagnosis: ID Patient Data Age: 53 Gender: F Height: 1.68 m Weight: 120.5 kg Last Vital Signs Temp 96.9 F L 06/12/24 09:32 Pulse 88 06/12/24 09:32 Resp 18 06/12/24 09:32 BP 126/75 06/12/24 09:32 Pulse Ox 98 06/12/24 09:32 O2 Del Method Room Air 06/12/24 09:32 Allergies Allergy/AdvReac Type Severity Reaction Status Date / Time zolpidem [From Ambien] Allergy Severe itching, Verified 06/12/24 09:53 anxiety Home Medications Medication Instructions Recorded Confirmed Type adalimumab 40 mg/0.8 mL See Rx Instructions subcut .COMPLEX 12/19/20 06/12/24 History subcutaneous syringe kit (Humira) lorazepam 0.5 mg tablet 0.5 mg PO DAILY PRN Anxiety 12/19/20 06/12/24 History ubrogepant 50 mg tablet (Ubrelvy) 50 mg PO ONCE 12/19/20 06/12/24 History venlafaxine 150 mg 150 mg PO DAILY 12/19/20 06/12/24 History capsule,extended release 24 hr (Effexor XR) lisinopril 10 1 tablet PO DAILY 04/16/21 06/12/24 History mg-hydrochlorothiazide 12.5 mg tablet erenumab-aooe 140 mg/mL 140 mg subcut MONTHLY 06/05/21 06/12/24 History subcutaneous auto-injector (Aimovig Autoinjector) fesoterodine 8 mg tablet,extended 8 mg PO DAILY 02/17/23 06/12/24 History release 24 hr (Toviaz) hydroxychloroquine 100 mg tablet 100 mg PO BID 06/16/23 06/12/24 History C-Semaglutide 40 units IM WEEKLY 06/06/24 06/12/24 History diclofenac potassium 50 mg tablet 50 mg PO BID 06/06/24 06/12/24 History gabapentin 300 mg capsule 300 mg PO BID 06/06/24 06/12/24 History Laboratory Tests 06/12/24 06/12/24 09:42 09:54 Sodium 135 L mmol/L (137-145) Potassium 4.1 mmol/L (3.4-5.0) Chloride 101 mmol/L (98-107) Carbon Dioxide 26 mmol/L (22-30) Anion Gap 8 mmol/L (4-12) BUN 13 mg/dL (7-17) Creatinine 0.60 L mg/dL (0.7-1.0) Estim Creat Clear Calc 125 ml/min Estimated GFR > 60 (59 - ) Glucose 90 mg/dL (65-110) Calcium 8.7 mg/dL (8.4-10.2) POC Urine HCG, Qual Negative POC Ur Preg QC Yes Patient hx anesthesia problems: none Family hx anesthesia problems: none Results Review: All pre-operative results and documents have been reviewed as part of the pre-operative evaluation. [facility] Past Medical History Medical History Carpal tunnel syndrome 2020 Degenerative arthritis of knee, bilateral Fracture of lateral malleolus of right ankle History of hypertension History of rheumatoid arthritis History of sleep apnea Morbid obesity with BMI of 40.0-44.9, adult Surgical History Surgical History Fracture of left ankle, lateral malleolus ORIF left lateral malleolus April 21, 2021 H/O hernia repair History of appendectomy History of cholecystectomy History of left hip replacement 2005 Family History Family History Other Asthma Cancer Cerebrovascular accident Heart disease Social History Social History Smoking status: Never smoker Alcohol intake: current Drinks per week: 4 Substance use: never Substance use type: marijuana Other substance usage details: maybe every other day. 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
[2024-06-12] MEDS: ceFAZolin 3 GM/D5W 100 ML 100 ML IVPB (11:03)
[2024-06-12] MEDS: LIDOCAINE HCL 2% GEL UROJET 10 ML PKG MUCOUS MEM (11:18)
--- NOTE | 2024-06-12 11:36 | W.PM.PROC2 ---
Procedure Note - Detailed Date of Procedure 06/12/24 Pre-op Diagnosis intrinsic sphincter deficiency Post-op Diagnosis Same Procedure Performed cystoscopy with suburethral injection of implant material Surgeon Sarath Park MD Anesthesia MAC and Local ( Lidocaine jelly) Indications this is a woman with stress incontinence due to intrinsic sphincter deficiency. She is not a candidate for urethral sling. She presents for bulking agent. She understands risks of bleeding, infection, incomplete efficacy, urinary retention requiring catheterization, need for repeat procedures. She agrees to proceed Findings uncomplicated bulking agent injection Description of Procedure she was correctly identified. Informed consent obtained. Brought the operating room. She was given monitored anesthesia care. She was placed in dorsal lithotomy position. Prepped draped sterile fashion. Time-out performed. She was given appropriate perioperative antibiotics. Examination revealed a moderate degree of rectocele and cystocele. Cystoscopy revealed no significant bladder abnormalities. Urethra open consistent with intrinsic sphincter deficiency. I chose a site in the mid urethra. This was 2 cm distal to bladder neck. I injected the bulking agent circumferentially. I used 1-1/2 syringe. There was excellent bulking effect. Her bladder was left partially full. She was awakened transferred to PACU in stable condition. Estimated Blood Loss 0 Drains No Packing No Pathology None sent Complications No immediate complications Condition Stable Disposition PACU
== END 2024-06-12 13:02 | disposition home or self-care (01) ==
PROVIDERS: Anesthesiology; PCP Family Medicine; Visit Provider Urology
PROC: 3E0K8GC Introduction of Other Therapeutic Substance into Genitourinary Tract, Via Natural or Artificial Opening Endoscopic (ICD-10-PCS; CPT 51715; principal; 2024-06-12 11:00)
DX: N36.42 Intrinsic sphincter deficiency (ISD) (principal); I10 Essential (primary) hypertension; G47.30 Sleep apnea, unspecified; E66.01 Morbid (severe) obesity due to excess calories; Z68.41 Body mass index [BMI] 40.0-44.9, adult; Z79.620 Long term (current) use of immunosuppressive biologic; Z79.85 Long-term (current) use of injectable non-insulin antidiabetic drugs; Z98.890 Other specified postprocedural states; Z90.49 Acquired absence of other specified parts of digestive tract; Z80.9 Family history of malignant neoplasm, unspecified; Z82.49 Family history of ischemic heart disease and other diseases of the circulatory system
CPT/HCPCS: 51715; 36415; 80048; J0690; J2250; J2704; J3010; J7120; L8606

== ENCOUNTER 2024-11-13 10:25 | Outpatient (CLI) | payer OTHER, SELFPAY ==
--- NOTE | 2024-11-13 10:30 | ECG_ITS ---
Test Date: 2024-11-13 10:51:15 Measurements Intervals [place] Rate: 84 P: 39 WA: 167 QRS: 29 QRSD: 102 T: 36 QT: 393 QTc: 465 Interpretive Statements SINUS RHYTHM LOW QRS VOLTAGE IN PRECORDIAL LEADS [QRS DEFLECTION < 1.0 mV IN CHEST LEADS] No previous ECG available for comparison Electronically Signed On 11-13-2024 18:11:02 RADIATION CONTROL TECHNICIAN by Dulce Vuong M.D.
[2024-11-13 10:57] LABS: Basophils Percent Auto 0.7 % (0.2-1.2); Eosinophils Absolute Auto 0.3 K/mm3 (0-0.3); Hematocrit 42.3 % (37.0-47.0); Hemoglobin 13.8 g/dL (12.0-15.0); Immature Granulocyte Absolute 0.01 K/mm3 (0.00-0.031); Immature Granulocyte Percent A 0.2 % (0-0.5); Lymphocytes Absolute Auto 2.64 K/mm3 (0.9-3.2); Lymphocytes Percent Auto 45.2 % (18.3-44.2); Mean Corpuscular HGB Conc 32.6 g/dl (32-36); Mean Corpuscular Hemoglobin 29.9 pg (26-34); Mean Corpuscular Volume 91.6 fl (80-100); Monocytes Absolute Auto 0.6 K/mm3 (0.1-0.6); Monocytes Percent Auto 9.8 % (2.6-8.5); Neutrophils Absolute Auto 2.3 K/mm3 (1.3-6.7); Neutrophils Percent Auto 39.1 % (45.5-73.1); Platelet Count Result 230 k/mm3 (150-375); Red Blood Count 4.62 M/mm3 (4.2-5.4); Red Cell Distribution Width 13.2 % (11.5-14.5); White Blood Count 5.8 K/mm3 (4.5-10.0)
[2024-11-13 11:18] LABS: Potassium 4.3 mmol/L (3.4-5.0)
[2024-11-13 11:28] LABS: Anion Gap 1 mmol/L (4-12); Blood Urea Nitrogen 13 mg/dL (7-17); Calcium 9.3 mg/dL (8.4-10.2); Carbon Dioxide 28 mmol/L (22-30); Chloride 108 mmol/L (98-107); Estimated Glomerular Filt Rate > 60; Glucose 97 mg/dL (65-110); Sodium 137 mmol/L (137-145)
== END 2024-11-13 10:26 | disposition home or self-care (01) ==
LOC: ANHSURGERY 10:29
PROVIDERS: Anesthesiology; PCP Family Medicine; Visit Provider Obstetrics & Gynecology
DX: Z01.818 Encounter for other preprocedural examination (principal); I10 Essential (primary) hypertension; D25.9 Leiomyoma of uterus, unspecified
CPT/HCPCS: 36415; 80048; 85025; 86850; 86900; 86901; 93005

== ENCOUNTER 2024-11-17 00:12 | Day surgery (SDC) | payer OTHER, SELFPAY ==
[2024-11-06 12:51] VITALS: BMI 39.1
--- NOTE | 2024-11-06 14:06 | PC.NURSE ---
Report to the Outpatient Waiting Room, entrance under the green pavilion located off [facility], at time _0930AM on date _ Wed11/17/24 . Planned Procedure Time: _1130AM .? Time changes happen often and if your time is changed the preop area will call you the afternoon before. - You and your visitor will be asked to self-screen and do not enter if you have any COVID symptoms. Please call surgeon if you need to reschedule. - A mask is optional within the hospital at this time. BRING A SMALL OVERNIGHT BAG AND YOUR CPAP Patients may have clear liquids (water, carbonated beverages, clear teas, apple juice) until 3 hours prior to surgery with a maximum of 20 ounces. - No food from midnight until time of surgery and no smoking. This includes no chewing gum, candy or mints. Take only the following medications with a SIP of water on the morning of surgery: EFFEXOR, REXULTI, PLAQUENIL, TOVIAZ, TAKE YOUR NEEDED MEDS FOR MIGRAINES IF NECESSARY DO NOT STOP ANY OF YOUR OTHER PRESCRIPTION MEDICATIONS PRIOR TO SURGERY EXCEPT THE FOLLOWING Medications to discontinue per physician __DICLOFENAC LAST DOSE 11/14/24____SEMAGLUTIDE _ LAST DOSE 11/02/24 Date to take last dose Please no make-up, nail bahamian, hairspray, perfume, deodorant, or body powder the day of surgery.? No jewelry (including any body piercings) or valuables the day of surgery, leave them at home.? Please take a shower or bath the night before, or the morning of, surgery with an antibacterial soap.? Wear comfortable, loose fitting clothing.? - Jewelry must be removed prior to entering the operating room.? Rings and piercings that are not removed may be cut off. - The hospital will not accept responsibility for valuables.? - Please leave all valuables, including medications, at home the day of surgery. If you are going home after surgery, a licensed cross country truck driver must drive you home.? - NO public transportation without another adult if you receive anesthesia. - We recommend that an adult stay with you for 24 hours following discharge. - We also recommend that you do not drive, make important decision, drink alcoholic beverages, or take any drugs that were not prescribed by your health care provider for at least 24 hours after your discharge time. Follow any additional instructions given to you from your surgeon. Telephone instructions given to _THERESA and asked if any additional questions and then verbalized understanding. Patient advised to call surgeon office or pre surgery nurse liaison [phone] if any additional questions.
--- NOTE | 2024-11-16 11:48 | PM.IMHP ---
H&P: HPI History of Present Illness Date/Time: 11/16/24 11:48 Chief Complaint: Pelvic pain with enlarged uterus and fibroids and serial abnormal Pap smears Narrative: 54-year-old female admitted for hysterectomy and bilateral salpingectomy with bilateral oophorectomy secondary to enlarged uterus pelvic pain and uterine fibroids. She also has uterine prolapse. She has pain with intercourse pain daily and she is under feet and she has an ultrasound showing the uterus to be loaded with fibroids and measuring over 385cc. Risks and benefits were reviewed including not exclusive of , aspiration pneumonia bleeding, transfuse a free, the need or other internal organs with need for open laparotomy. She received the [employer] handout entitled hysterectomy as well as the [facility] handout. She had all questions answered to her satisfaction. She asked to proceed Review of Systems Review of Systems: All systems reviewed & are unremarkable except as noted in HPI and below PMFSH Past Medical History Medical History Degenerative arthritis of knee, bilateral Morbid obesity with BMI of 40.0-44.9, adult Carpal tunnel syndrome 2020 Fracture of lateral malleolus of right ankle History of sleep apnea History of hypertension History of rheumatoid arthritis Surgical History Surgical History Fracture of left ankle, lateral malleolus ORIF left lateral malleolus April 21, 2021 History of appendectomy History of left hip replacement 2005 H/O hernia repair History of cholecystectomy Family History Family History Other Asthma Cancer Cerebrovascular accident Heart disease Social History Social History Smoking status: Never smoker Alcohol intake: current Drinks per week: 4 Substance use: current Substance use type: marijuana Other substance usage details: maybe every other day. 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 Gender identity (if verbalized by the patient): Female Spiritual care concerns: No Meds Home Medications and Allergies Home Medications ?Medication ?Instructions ?Recorded ?Confirmed ?Type adalimumab 40 mg/0.8 mL See Rx Instructions subcut .COMPLEX 12/19/20 11/06/24 History subcutaneous syringe kit (Humira) lorazepam 0.5 mg tablet 0.5 mg PO DAILY Anxiety 12/19/20 11/06/24 History ubrogepant 50 mg tablet (Ubrelvy) 100 mg PO ONCE PRN migraine 12/19/20 11/06/24 History headache venlafaxine 150 mg 150 mg PO DAILY 12/19/20 11/06/24 History capsule,extended release 24 hr (Effexor XR) lisinopril 10 1 tablet PO DAILY 04/16/21 11/06/24 History mg-hydrochlorothiazide 12.5 mg tablet erenumab-aooe 140 mg/mL 140 mg subcut MONTHLY 06/05/21 11/06/24 History subcutaneous auto-injector (Aimovig Autoinjector) fesoterodine 8 mg tablet,extended 8 mg PO DAILY 02/17/23 11/06/24 History release 24 hr (Toviaz) hydroxychloroquine 100 mg tablet 100 mg PO BID 06/16/23 11/06/24 History C-Semaglutide 68 units IM WEEKLY WEIGHT LOSS 06/06/24 11/06/24 History diclofenac potassium 50 mg tablet 50 mg PO DAILY 06/06/24 11/06/24 History gabapentin 300 mg capsule 300 mg PO .QD 06/06/24 11/06/24 History brexpiprazole 1 mg tablet (Rexulti) 1 mg PO DAILY 11/06/24 11/06/24 History venlafaxine 75 mg capsule,extended 75 mg PO .QD 11/06/24 11/06/24 History release 24 hr Allergies Allergy/AdvReac Type Severity Reaction Status Date / Time zolpidem (From Ambien) Allergy Severe itching, Verified 06/12/24 09:53 anxiety Exam Const: General: cooperative, healthy appearing and comfortable Nutritional Appearance: overweight Orientation/consciousness: oriented to person, oriented to place and oriented to time HENMT: Head: normal to inspection Resp: Effort & Inspection: normal respiratory effort Cardio: Rate: regular rate Rhythm: regular rhythm Heart sounds: S1 normal heart sound present and S2 normal heart sound present GI: Inspection: normal to inspection and obesity : External Female Exam: normal external appearance Speculum Exam - Vagina: normal appearance of the vagina Speculum Exam - Cervix: normal appearance of the cervix Bimanual exam- vagina & uterus: enlarged and nodular Bimanual Exam- Adnexa, other: normal adnexae Assessment and Plan Assessment and plan (1) Uterine fibroid: Code(s): D25.9 - Leiomyoma of uterus, unspecified Status: Acute (2) Morbid obesity with BMI of 40.0-44.9, adult: Code(s): E66.01 - Morbid (severe) obesity due to excess calories; Z68.41 - Body mass index [BMI] 40.0-44.9, adult Status: Acute (3) Uterine prolapse: Code(s): N81.4 - Uterovaginal prolapse, unspecified Status: Acute (4) Dyspareunia: Status: Acute Plan Proceed with robotic total vaginal hysterectomy and bilateral salpingectomy. The risks benefits reviewed in full
[2024-11-17] VITALS (9 sets, daily range): BP systolic 106–137; BP diastolic 63–82; PULSE 91–108; RESP 14–19; TEMP 36.3–36.7; O2SAT 94–99
--- NOTE | 2024-11-17 06:51 | WPDHPUPDATE1 ---
History and Physical Update Update Date/Time: 11/17/24 06:51 History and Physical has been reviewed, including an updated exam of the patient. There are NO changes in the patient's condition. Risks, benefits, and alternatives have been discussed and questions answered. Patient agrees to proceed with procedure.
--- NOTE | 2024-11-17 07:20 | P.PNAN_ITS ---
Anes - Initial Pre Proc Eval Procedure: Operation Date: 11/17/24 11:30 Proposed Procedures p Robotic Assisted Total Vaginal Hysterectomy with Bilateral Salpingo- oophorectomy - Reg Cain MD Date/Time: 11/17/24 07:20 Surgeon: Reg Cain MD Pre Op Diagnosis: Pelvic pain, Enlargr Uterus, Fibroids Patient Data Age: 54 Gender: F Height: 1.68 m Weight: 110 kg Allergies Allergy/AdvReac Type Severity Reaction Status Date / Time zolpidem (From Ambien) Allergy Severe itching, Verified 06/12/24 09:53 anxiety Home Medications ?Medication ?Instructions ?Recorded ?Confirmed ?Type adalimumab 40 mg/0.8 mL See Rx Instructions subcut .COMPLEX 12/19/20 11/06/24 History subcutaneous syringe kit (Humira) lorazepam 0.5 mg tablet 0.5 mg PO DAILY Anxiety 12/19/20 11/17/24 History ubrogepant 50 mg tablet (Ubrelvy) 100 mg PO ONCE PRN migraine 12/19/20 11/06/24 History headache venlafaxine 150 mg 150 mg PO DAILY 12/19/20 11/17/24 History capsule,extended release 24 hr (Effexor XR) lisinopril 10 1 tablet PO DAILY 04/16/21 11/17/24 History mg-hydrochlorothiazide 12.5 mg tablet erenumab-aooe 140 mg/mL 140 mg subcut MONTHLY 06/05/21 11/06/24 History subcutaneous auto-injector (Aimovig Autoinjector) fesoterodine 8 mg tablet,extended 8 mg PO DAILY 02/17/23 11/17/24 History release 24 hr (Toviaz) hydroxychloroquine 100 mg tablet 100 mg PO BID 06/16/23 11/17/24 History C-Semaglutide 68 units IM WEEKLY WEIGHT LOSS 06/06/24 11/06/24 History diclofenac potassium 50 mg tablet 50 mg PO DAILY 06/06/24 11/17/24 History gabapentin 300 mg capsule 300 mg PO .QD 06/06/24 11/17/24 History brexpiprazole 1 mg tablet (Rexulti) 1 mg PO DAILY 11/06/24 11/17/24 History venlafaxine 75 mg capsule,extended 75 mg PO .QD 11/06/24 11/17/24 History release 24 hr hydrocodone 5 mg-acetaminophen 325 1 tablet PO Q4H PRN pain #20 tabs 11/17/24 Rx mg tablet Patient hx anesthesia problems: none Family hx anesthesia problems: none Results Review: All pre-operative results and documents have been reviewed as part of the pre- operative evaluation. [facility] Past Medical History Medical History (Updated 11/17/24 @ 07:21 by Dharmesh Castellon DO) Fatty liver Chronic pain Asthma EDUARDO (obstructive sleep apnea) CPAP Degenerative arthritis of knee, bilateral Morbid obesity with BMI of 40.0-44.9, adult Carpal tunnel syndrome 2019 Fracture of lateral malleolus of right ankle History of sleep apnea History of hypertension History of rheumatoid arthritis Surgical History Surgical History Fracture of left ankle, lateral malleolus ORIF left lateral malleolus April 21, 2021 History of appendectomy History of left hip replacement 2005 H/O hernia repair History of cholecystectomy Family History Family History Other Asthma Cancer Cerebrovascular accident Heart disease Social History Social History Smoking status: Never smoker Alcohol intake: current Drinks per week: 4 Substance use: current Substance use type: marijuana Other substance usage details: maybe every other day. 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 Informed Consent: The patient's anesthetic plan and its attendant risks and benefits were discussed with the patient/family/POA. Questions were solicited and answers provided to the satisfaction of the patient/family/POA.
[2024-11-17] MEDS: ACETAMINOPHEN 500 MG TABLET 1000 MG PO ×3 (10:05→23:18)
[2024-11-17] MEDS: LACTATED RINGERS 1,000 ML 30 ML IV CONT ×2 (10:10→12:51)
[2024-11-17] MEDS: KETOROLAC 15 MG/ML VIAL (*BKC) IV PUSH (10:15)
[2024-11-17] MEDS: ceFAZolin 2 GM/D5W 50 ML 2 GM/50 ML BAG IVPB (10:56)
--- NOTE | 2024-11-17 12:45 | P.OP_ITS ---
Procedure Note - Detailed Date of Procedure 11/17/24 Pre-op Diagnosis Pelvic pain, Enlargr Uterus, Fibroids Post-op Diagnosis Same Procedure Performed Robotic total vaginal hysterectomy and bilateral salpingo-oophorectomy Surgeon Reg Cain MD Anesthesia General Indications Is a 54-year-old female with symptomatic fibroid uterus Findings Markedly enlarged uterus. Normal-appearing ovaries and tubes Description of Procedure Patient was prepped draped in the normal sterile fashion placed in the dorsal position. Under excellent general trach anesthesia weighted speculum placed in posterior fornix vagina. Anterior lip of the cervix grasped with single-tooth tenaculum. Uterus sounded to 12cm. Serial dilatation with fragmented dilators performed followed by passage of the 10. RYANNE and the 3. 0.5 cold cup. Next the 16 [place] catheter was placed in the bladder and drained of clear urine. The weighted speculum the single-tooth removed. The gloves were changed. A supraumbilical incision made the Veress needle passed the filled with CO2 gas [id number]. The 8mm trocar advanced in the abdomen. Downside visualized no injury seen. Patient placed in Trendelenburg and right left lateral quadrant incisions made. 8mm trocars advanced under direct visualization assuring no injury. A right upper quadrant incision made the 8mm trocar advanced under direct visualization assuring no injury. The robot was docked. Attention was turned to the risk reduction counselor. The uterus markedly in loss large retroverted. The round ligament on the left was grasped, burned, cut and anteriorly a bladder flap was formed by sharply dissecting the peritoneum and reflecting the bladder caudally away from the cervix uterus this was brought to the opposite round ligament which was clamped, burned, cut. Next the left infundibulopelvic structure was skeletonized clamping burning cutting and to remove the left ovary and tube in similar fashion on the right the infundibulopelvic structure was skeletonized clamping burning cutting and bringing this to the level of previous cut round ligaments remove the right ovary and tube. Next cardinal broad ligaments on the left were serially skeletonized clamping burning cutting and working away down to the large tortuous uterine vessels. In similar fashion the cardinal broad ligaments on the left were serially skeletonized clamping burning cutting until the uterine vessels on the right could be seen. These were individually clamped, burned, cut. The uterus was then removed with the tubes and ovaries through a colpotomy incision. The vagina then closed with continuous running 0V lock from lateral edge to lateral edge back to the midline. Irrigation undertaken to clear blood loss estimated [id number]. The hemostasis was assured. [place] term was placed over the raw surface area. The robot was undocked. The gas removed from the abdomen. The incisions closed with 4 Monocryl and glue. The patient went to recovery in satisfactory condition. All sponge, needle, instrument counts were correct. There were no immediate complications Estimated Blood Loss 300 Drains No Packing No Pathology Yes Complications No immediate complications Condition Stable Disposition PACU
--- NOTE | 2024-11-17 12:50 | P.DS_ITS ---
DS: Admitting Diagnosis Discharge Date 11/18/24 <Kulwant Ayoub MD - Last Filed: 11/18/24 09:12> Admitting Diagnosis Symptomatic uterine fibroids <Reg Cain MD - Last Filed: 11/17/24 12:52> DS: Discharge Diagnosis Discharge Diagnosis (1) Uterine fibroid: Code(s): D25.9 - Leiomyoma of uterus, unspecified <Reg Cain MD - Last Filed: 11/17/24 12:52> Status: Acute <Reg Cain MD - Last Filed: 11/17/24 12:52> (2) Uterine prolapse: Code(s): N81.4 - Uterovaginal prolapse, unspecified <Reg Cain MD - Last Filed: 11/17/24 12:52> Status: Acute <Reg Cain MD - Last Filed: 11/17/24 12:52> (3) Dyspareunia: Status: Acute <Reg Cain MD - Last Filed: 11/17/24 12:52> DS: Summary Hospital Course Reason for hospitalization: Patient was admitted for robotic total vaginal hysterectomy bilateral salpingo-oophorectomy on 11/17/2024 <Reg Cain MD - Last Filed: 11/17/24 12:52> Hospital Course: The patient's hospital course unremarkable. She remained afebrile. She was up, voiding without difficulty regular diet, ambulating, and generally wi thout complaints. <Reg Cain MD - Last Filed: 11/17/24 12:52> Time Spent with Patient Time attestation: Total time spent providing and/or coordinating discharge services: <Reg Cain MD - Last Filed: 11/17/24 12:52> Exam Const: General: cooperative, healthy appearing and comfortable <Reg Cain MD - Last Filed: 11/17/24 12:52> Nutritional Appearance: average body habitus <Reg Cain MD - Last Filed: 11/17/24 12:52> Orientation/consciousness: oriented to person, oriented to place and oriented to time <Reg Cain MD - Last Filed: 11/17/24 12:52> HENMT: Head: normal to inspection <Reg Cain MD - Last Filed: 11/17/24 12:52> Resp: Effort & Inspection: normal respiratory effort <Reg Cain MD - Last Filed: 11/17/24 12:52> Cardio: Rate: regular rate <Reg Cain MD - Last Filed: 11/17/24 12:52> Rhythm: regular rhythm <Reg Cain MD - Last Filed: 11/17/24 12:52> Heart sounds: S1 normal heart sound present and S2 normal heart sound present <Reg Cain MD - Last Filed: 11/17/24 12:52> GI: Inspection: normal to inspection and incision (Wounds are clean dry and intact) <Reg Cain MD - Last Filed: 11/17/24 12:52> DS: Data Data Completed and Pending Pending studies at discharge: Pending at discharge 11/17/24 12:31 Surgical [PTH] Routine <Reg Cain MD - Last Filed: 11/17/24 12:52> Discharge Plan Discharge Patient Disposition: Home, Self-Care <Reg Cain MD - Last Filed: 11/17/24 12:52> Discharge Instructions: Nothing in the vagina for 6 weeks. Call or return if temperature above 100.4? F, increased abdominal pain, increased vaginal bleeding or any new problems. <Reg Cain MD - Last Filed: 11/17/24 12:52> Patient Language: Paraguayan <Reg Cain MD - Last Filed: 11/17/24 12:52> Stand Alone Forms: General Discharge Instructions <Reg Cain MD - Last Filed: 11/17/24 12:52> Follow-up/Referrals: Reg Rowan MD [Physician] - 2 Weeks <Reg Cain MD - Last Filed: 11/17/24 12:52> Discharge Medications: New hydrocodone-acetaminophen 5-325 mg tablet 1 tablet PO Q4H PRN (Reason: pain) Qty: 20 0RF Continued venlafaxine [Effexor XR] 150 mg capsule,extended release 24hr 150 mg PO DAILY Humira 40 mg/0.8 mL syringe kit See Rx Instructions subcut .COMPLEX Rx Instructions: inject one - 40 mg/0.8 mL syringe every 2 weeks subcut Ubrelvy 50 mg tablet 100 mg PO ONCE PRN (Reason: migraine headache) Rx Instructions: as a single dose; may repeat once in >=2 hours after first dose if needed lorazepam 0.5 mg tablet 0.5 mg PO DAILY Rx Instructions: @ HS fesoterodine [Toviaz] 8 mg tablet extended release 24 hr 8 mg PO DAILY hydroxychloroquine 100 mg tablet 100 mg PO BID Aimovig Autoinjector 140 mg/mL auto-injector 140 mg subcut MONTHLY lisinopril-hydrochlorothiazide 10-12.5 mg tablet 1 tablet PO DAILY gabapentin 300 mg capsule 300 mg PO .QD Rx Instructions: @ HS diclofenac potassium 50 mg tablet 50 mg PO DAILY Rx Instructions: WILL D/C 11/14/24 C-Semaglutide 68 units IM WEEKLY Rx Instructions: WEIGHT LOSS-DOSE ON THURSDAYS venlafaxine 75 mg capsule,extended release 24hr 75 mg PO .QD Rexulti 1 mg tablet 1 mg PO DAILY <Reg Cain MD - Last Filed: 11/17/24 12:52>
[2024-11-17] MEDS: fentaNYL CITRATE INJ (*CRX) 100 MCG/2 ML VIAL 25 MCG IV PUSH ×5 (13:09→13:45)
[2024-11-17] MEDS: DEXTROSE 5%/LACTATED RINGERS 1,000 ML 125 ML IV CONT (15:36)
[2024-11-17] MEDS: DOCUSATE SODIUM 100 MG CAPSULE PO (17:05)
[2024-11-17] MEDS: KETOROLAC 30 MG/ML VIAL (*BKC) IV PUSH ×2 (17:05→23:18)
[2024-11-17] MEDS: SIMETHICONE 80 MG TAB.CHEW PO (17:05)
[2024-11-17] MEDS: oxyCODONE HCL (*CRX) 5 MG TAB IR PO (20:24)
[2024-11-17] MEDS: SIMETHICONE 80 MG TAB.CHEW (22:40)
[2024-11-18] MEDS: oxyCODONE HCL (*CRX) 5 MG TAB IR 10 MG PO ×3 (00:09→09:48)
[2024-11-18] MEDS: KETOROLAC 30 MG/ML VIAL (*BKC) IV PUSH (04:48)
[2024-11-18] MEDS: ACETAMINOPHEN 500 MG TABLET 1000 MG PO (04:48)
[2024-11-18] MEDS: SIMETHICONE 80 MG TAB.CHEW PO ×3 (04:50→09:48)
[2024-11-18 04:54] VITALS: BP 98/60; PULSE 88; RESP 14; TEMP 36.8; O2SAT 97
[2024-11-18] MEDS: DEXTROSE 5%/LACTATED RINGERS 1,000 ML 125 ML IV CONT (05:00)
[2024-11-18 05:30] LABS: Basophils Absolute Auto 0.1 K/mm3 (0.0-0.1); Basophils Percent Auto 0.4 % (0.2-1.2); Eosinophils Absolute Auto 0.1 K/mm3 (0-0.3); Eosinophils Percent Auto 0.5 % (0-4.4); Hematocrit 34.8 % (37.0-47.0); Hemoglobin 11.5 g/dL (12.0-15.0); Immature Granulocyte Absolute 0.03 K/mm3 (0.00-0.031); Immature Granulocyte Percent A 0.2 % (0-0.5); Lymphocytes Absolute Auto 2.48 K/mm3 (0.9-3.2); Lymphocytes Percent Auto 19.5 % (18.3-44.2); Mean Corpuscular Hemoglobin 30.4 pg (26-34); Mean Corpuscular Volume 92.1 fl (80-100); Mean Platelet Volume 11.4 fl (7.4-10.4); Monocytes Absolute Auto 1.1 K/mm3 (0.1-0.6); Monocytes Percent Auto 8.7 % (2.6-8.5); Neutrophils Percent Auto 70.7 % (45.5-73.1); Platelet Count Result 216 k/mm3 (150-375); Red Blood Count 3.78 M/mm3 (4.2-5.4); Red Cell Distribution Width 13.3 % (11.5-14.5); White Blood Count 12.7 K/mm3 (4.5-10.0)
[2024-11-18] MEDS: ENOXAPARIN 40 MG/0.4 ML SYRINGE SUB-Q (06:41)
[2024-11-18] MEDS: DOCUSATE SODIUM 100 MG CAPSULE PO (06:41)
[2024-11-18 06:45] VITALS: BP 111/71; PULSE 89; RESP 16; TEMP 36.4
--- NOTE | 2024-11-18 09:10 | P.PNOB_ITS ---
[employer] - A/P Assessment and plan (1) Uterine fibroid: Code(s): D25.9 - Leiomyoma of uterus, unspecified Status: Acute Assessment and Plan: A: POD#1, doing well. P: Home to f/u 2 weeks. (2) Uterine prolapse: Code(s): N81.4 - Uterovaginal prolapse, unspecified Status: Acute (3) Dyspareunia: Status: Acute Postoperative Procedures: Procedures Operation Date: 11/17/24 11:30 Actual Procedure Side Surgeon p Robotic Assisted Total Vaginal Hysterectomy with Bilateral Salpingo- oophorectomy Reg Cain MD Postoperative day: 1 Time Spent With Patient Time: Total time spent is greater than 50% in coordination of care (as documented) at patient's floor/unit and/or counseling patient: Time with patient: less than 15 minutes [employer]- PN:Subj Post-Op Subjective Date/time seen: 11/18/24 09:10 Interval history: Pain OK. Tolerating diet. Voiding. Would like to go home. Exam 2 Narrative: AVSS I/O OK ABD soft, nontender. Incisions c/d/i. EXT nontender [employer] - PN: Obj Data Vital Signs Vital Signs: Vital Signs - 24 hr 11/17/24 09:49 11/17/24 12:51 11/17/24 13:00 Temperature 36.3 C L 36.5 C Pulse Rate 91 108 H 103 H Respiratory Rate 16 19 14 Blood Pressure 129/72 128/76 125/64 Pulse Oximetry 99 94 98 Oxygen Delivery Room Air Simple Face Mask Simple Face Mask Oxygen Flow Rate 8 8 11/17/24 13:10 11/17/24 13:15 11/17/24 13:30 Temperature Pulse Rate 105 H 103 H Respiratory Rate 16 15 Blood Pressure 106/63 132/82 Pulse Oximetry 96 96 96 Oxygen Delivery Room Air Room Air Room Air Oxygen Flow Rate 11/17/24 13:43 11/17/24 14:00 11/17/24 20:32 Temperature 36.6 C 36.7 C Pulse Rate 104 H 105 H 93 Respiratory Rate 15 16 14 Blood Pressure 116/74 137/79 108/68 Pulse Oximetry 96 98 Oxygen Delivery Room Air Oxygen Flow Rate 11/18/24 04:54 11/18/24 06:45 Temperature 36.8 C 36.4 C L Pulse Rate 88 89 Respiratory Rate 14 16 Blood Pressure 98/60 L 111/71 Pulse Oximetry 97 Oxygen Delivery Oxygen Flow Rate Intake/Output Intake/Output: Intake & Output 11/15/24 11/16/24 11/17/24 11/18/24 23:59 23:59 23:59 23:59 Intake Total 1250 500 Output Total 280 875 Balance 970 -375 Meds/Results Medications: Active Medications Generic Name Dose Route Start Last Admin Trade Name Freq PRN Reason Stop Dose Admin Acetaminophen 1,000 mg 11/17/24 17:00 11/18/24 04:48 Acetaminophen 500 Mg Tablet PO 500 mg Q6HR MIRELA Administration Docusate Sodium 100 mg 11/17/24 17:00 11/18/24 06:41 Docusate Sodium 100 Mg Capsule PO 100 mg BID MIRELA Administration Enoxaparin Sodium 40 mg 11/18/24 09:00 11/18/24 06:41 Enoxaparin 40 Mg/0.4 Ml Syringe SUB-Q 40 mg DAILY MIRELA Administration Dextrose/Lactated Ringer's 1,000 mls @ 125 mls/hr 11/17/24 15:00 11/18/24 05:00 Dextrose 5%/Lactated Ringers IV CONT 125 mls/hr .Q8H MIRELA Administration Ibuprofen 600 mg 11/18/24 12:00 Ibuprofen 600 Mg Tablet PO Q6H MIRELA Naloxone HCl 0.1 mg 11/17/24 15:00 Naloxone Hcl 0.4 Mg/Ml Vial IV PUSH Q2M PRN Respiratory rate less than 10 Ondansetron HCl 4 mg 11/17/24 15:00 Ondansetron Inj 4 Mg/2 Ml Vial IV PUSH Q6H PRN Nausea And Vomiting Oxycodone HCl 5 mg 11/17/24 15:00 11/17/24 20:24 Oxycodone Hcl (*Crx) 5 Mg Tab Ir PO 5 mg Q4H PRN Administration Pain Rated 4-6 Oxycodone HCl 10 mg 11/17/24 15:00 11/18/24 04:49 Oxycodone Hcl (*Crx) 5 Mg Tab Ir PO 10 mg Q6H PRN Administration Pain Rated 7-10 Simethicone 80 mg 11/17/24 17:00 11/17/24 17:05 Simethicone 80 Mg Tab.Chew PO 80 mg TIDWM MIRELA Administration Simethicone 80 mg 11/17/24 22:27 11/18/24 06:41 Simethicone 80 Mg Tab.Chew PO 80 mg Q2HR PRN Administration Gas Discomfort Labs 11/18/24 05:00 Labs: Laboratory Results - last 24 hr 11/18/24 05:00 WBC 12.7 H RBC 3.78 L Hgb 11.5 L Hct 34.8 L MCV 92.1 MCH 30.4 MCHC 33.0 RDW 13.3 Plt Count 216 MPV 11.4 H Immature Gran % (Auto) 0.2 Neut % (Auto) 70.7 Lymph % (Auto) 19.5 [place] % (Auto) 8.7 H Eos % (Auto) 0.5 Baso % (Auto) 0.4 Lymph # (Auto) 2.48 [place] # (Auto) 1.1 H Eos # (Auto) 0.1 Baso # (Auto) 0.1 Abs Immat Gran (auto) 0.03 Absolute Neuts (auto) 9.0 H Absolute Nucleated RBC 0.000 Nucleated RBC % 0.0
== END 2024-11-18 10:14 | disposition home or self-care (01) ==
LOC: ANHSURGERY 09:33 → ANHOB2 15:10
PROVIDERS: PCP Family Medicine; Visit Provider Obstetrics & Gynecology
PROC: (CPT 58554; principal; 2024-11-17 11:30)
DX: D25.1 Intramural leiomyoma of uterus (principal); D25.0 Submucous leiomyoma of uterus; N85.2 Hypertrophy of uterus; M17.0 Bilateral primary osteoarthritis of knee; I10 Essential (primary) hypertension; J45.909 Unspecified asthma, uncomplicated; G47.33 Obstructive sleep apnea (adult) (pediatric); G56.00 Carpal tunnel syndrome, unspecified upper limb; G89.29 Other chronic pain; M06.9 Rheumatoid arthritis, unspecified; F12.90 Cannabis use, unspecified, uncomplicated; E66.9 Obesity, unspecified; Z68.39 Body mass index [BMI] 39.0-39.9, adult; Z79.620 Long term (current) use of immunosuppressive biologic; Z79.891 Long term (current) use of opiate analgesic; Z79.85 Long-term (current) use of injectable non-insulin antidiabetic drugs; Z99.89 Dependence on other enabling machines and devices; Z98.890 Other specified postprocedural states; Z90.49 Acquired absence of other specified parts of digestive tract; Z80.9 Family history of malignant neoplasm, unspecified; Z82.49 Family history of ischemic heart disease and other diseases of the circulatory system
CPT/HCPCS: 58554; S2900; 36415; 85025; 88307; 99199; A9270; J0330; J0690; J1100; J1171; J1200; J1650; J1885; J2003; J2250; J2405; J2704; J3010; J7030; J7120; J7121

== ENCOUNTER 2025-04-12 10:06 | Outpatient (CLI) | payer OTHER, SELFPAY ==
--- NOTE | ~2025-04-12 | XR_ITS ---
Clinical Indication: Abnormal chest x-ray PA and lateral views of the chest: Comparison: 05/25/2018 Findings: The lungs are clear, without evidence of focal consolidation or pleural effusion. Cardiome diastinal silhouette is within normal limits. Bones and soft tissues are unremarkable. Impression: Normal chest. Reviewed, dictated and finalized at location . Impression: Normal chest.
--- OUTSIDE RECORDS SUMMARY | 2025-04-12 10:11 | XMS_ITS | Clinical Summary ---
Author Organization [facility] Administrative Offices Address [address] [place] [address] Care Team Providers Care Desktop Support Associate Name Role Phone Unavailable Primary Care Provider Unavailabl e Allergies Active Allergy Reactions Criticality Noted Date Comments Hydrocodone-Acetaminophen Rash,Itching,Swelling Low 04/23/2014 Medications lisinopril-hydro chlorothiazide (ZESTORETIC) 10-12.5 mg tablet Take 1 Tab by mouth daily. Active meloxicam (MOBIC) 15 mg tablet Take 15 mg by mouth daily. Active venlafaxine (EFFEXOR XR) 75 mg capsule Take 75 mg by mouth daily. Active BUTALB/ACETAMINO PHEN/CAFFEINE (FIORICET ORAL) Take by mouth 1 time daily as needed. Active HYDROcodone-acet aminophen (NORCO) 5-325 mg tablet Take 1 Tab by mouth every 4 hours as needed for Pain, Moderate. Active oxyCODONE-acetam inophen (PERCOCET) 5-325 mg tablet Take 1 Tab by mouth every 4 hours as needed for Pain. 30 Tab 0 04/25/2014 Active cephALEXin (KEFLEX) 500 mg capsule Take 1 Cap by mouth 4 times daily. 30 Cap 0 04/25/2014 Active Social History Tobacco Use Types Packs/Day Years Used Date Smoking Tobacco: Never Alcohol Use Standard Drinks/Week Comments Yes 0 (1 standard drink = 0.6 oz pur e alcohol) occ./social Comments No Sex and Gender Information Value Date Recorded Sex Assigned at Not on file Legal Sex Female 9:40 AM [employer] Gender Identity Not on file Sexual Orientation Not on file Last Filed Vital Signs Vital Sign Reading Time Taken Comments Blood Pressure 109/64 04/25/2014 6:38 PM CDT Pulse 84 04/25/2014 6:38 PM CDT Temperature 35.8 C (96.4 F) 04/25/2014 6:38 PM CDT fan on Respiratory Rate 16 04/25/2014 6:38 PM CDT Oxygen Saturation 93% 04/25/2014 6:38 PM CDT Inhaled Oxygen Concentration - - Weight 118.7 kg (261 lb 9.6 oz) 014 11:00 AM CDT Height 167.6 cm (5' 6) 04/23/2014 12:0 3 PM CDT Body Mass Index 42.22 04/23/2014 12:03 PM CDT Plan of Treatment Health Maintenance Due Date Last Done Comments DTAP/TDAP/TD VACCINES (1 - Tdap) 1991 HEPATITIS B VACCINES (1 of 3 - 19+ 3-dose series) 10/15 HPV/Cotest (21-29) 1993 CERVICAL CANCER SCREENING 2002 HPV/Cotest (30-65) 2002 PAP SMEAR 2002 BREAST CANCER SCREENING 2012 COLORECTAL SCREENING 2017 Colorectal Cancer Screening 2017 FIT-DNA Q 3 years 2017 FIT/FOBT Q 1 year 2017 Flex Sig/CT Colonography Q 5 years 2017 ZOSTER VACCINE (1 of 2) 2022 INFLUENZA VACCINE (#1) 2024 Medical Devices Implanted Type Area Technical Solution Architect Device Identifier Shelf Expiration Date Model / Serial / Lot Left Wrist; Pin & Screws Implanted:(Quantit y not on file) Explanted:(Quantit y not on file) Left Hip Replacement Implanted:(Quantit y not on file) Explanted:(Quantit y not on file) Insurance [facility] [id number] Advance Directives For more information, please contact: [phone] * Full Code (Latest Code Status on File) Date Activated Date Inactivated Comments 04/25/2014 3:08 PM 04/26/2014 12:31 AM * Full Code Date Activated Date Inactivated Comments 04/25/2014 11:01 AM 04/25/2014 3:08 PM * Full Code Date Activated Date Inactivated Comments 04/25/2014 10:56 AM 04/25/2014 11:01 AM
--- OUTSIDE RECORDS SUMMARY | 2025-04-12 10:11 | XMS_ITS | Data Portability ---
Author Organization [place] - [facility] [employer], Main Office Address [address] [place] [address] Care Team Providers Care Product Marketing Specialist Name Role Phone KAMRON MCKEON Primary Care Provider [phone] KAMRON MCKEON Referring Provider [phone] ANSHUL PAYAN Orthopedic Surgeon Assessment No assessment recorded. Plan of Treatment Reminders Order Date Submit Date Provider Last Modified By Organization Details Last Modified Time Details Appointments None recorded. Lab drug of abuse panel, urine 2023 024 [email or web address] 477 [facility] (Lab), [address] [place], [address], 4 15:37:19 Referral None recorded. Procedures None recorded. Surgeries None recorded. Imaging None recorded. Medication Orders lisinopril 10 mg-hydrochl orothiazide 12.5 mg tablet 2023 024 [facility], [address] [place], [address], 4 17:24:14 compounded medication 2023 024 [email or web address] 3 [facility], [facility], [place] [address], [place], [address], 5 13:59:24 lorazepam 1 mg tablet 2023 024 [facility], [address] [place], [address], 4 17:24:13 Wegovy 0.5 mg/0.5 mL subcutaneou s pen injector 2023 024 [email or web address] 477 [facility], [address] [place], [address], 17:02:34 Patient TargetsNo targets recorded. Patient InstructionsNo instructions recorded. Reason for Referral None Reported. Results Created Date Observation Date Name Description Value Unit Range Abnormal Flag Note LastModifiedBy Organization Detail LastModifiedTime 12/16/19 24 12/18/2023 UA/M W/RFL X CULTU RE, ROUTI NE specific gravity 1.022 1.005- 1.030 Not Available [facility] ([facility]) [address] [place], [address], 12/18/2023 09:39:20 12/16/19 24 12/18/2023 UA/M W/RFL X CULTU RE, ROUTI NE pH 6.5 5.0-7. 5 Not Available [facility] ([facility]) [address] [place], [address], 12/18/2023 09:39:20 12/16/19 24 12/18/2023 UA/M W/RFL X CULTU RE, ROUTI NE urine-color YELLOW yellow Not Available [facility] ([facility]) [address] [place], [address], 12/18/2023 09:39:20 12/16/19 24 12/18/2023 UA/M W/RFL X CULTU RE, ROUTI NE appearance CLEAR clear Not Available [facility] ([facility]) [address] [place], [address], 12/18/2023 09:39:20 12/16/19 24 12/18/2023 UA/M W/RFL X CULTU RE, ROUTI NE WBC esterase NEGATI VE negati ve Not Available [facility] ([facility]) [address] [place], [address], 12/18/2023 09:39:20 12/16/19 24 12/18/2023 UA/M W/RFL X CULTU RE, ROUTI NE protein NEGATI VE negati ve/tra ce Not Available [facility] ([facility]) [address] [place], [address], 12/18/2023 09:39:20 12/16/19 24 12/18/2023 UA/M W/RFL X CULTU RE, ROUTI NE glucose NEGATI VE negati ve Not Available [facility] ([facility]) [address] [place], [address], 12/18/2023 09:39:20 12/16/19 24 12/18/2023 UA/M W/RFL X CULTU RE, ROUTI NE ketones NEGATI VE negati ve Not Available [facility] ([facility]) [address] [place], [address], 12/18/2023 09:39:20 12/16/19 24 12/18/2023 UA/M W/RFL X CULTU RE, ROUTI NE occult blood NEGATI VE negati ve Not Available [facility] ([facility]) [address] [place], [address], 12/18/2023 09:39:20 12/16/19 24 12/18/2023 UA/M W/RFL X CULTU RE, ROUTI NE bilirubin NEGATI VE negati ve Not Available [facility] ([facility]) [address] [place], [address], 12/18/2023 09:39:20 12/16/19 24 12/18/2023 UA/M W/RFL X CULTU RE, ROUTI NE urobilinogen ,semi-qn 0.2 mg/dL 0.2-1. 0 Not Available [facility] ([facility]) [address] [place], [address], 12/18/2023 09:39:20 12/16/19 24 12/18/2023 UA/M W/RFL X CULTU RE, ROUTI NE nitrite, urine NEGATI VE negati ve Not Available [facility] ([facility]) [address] [facility], [place], [address], 12/18/2023 09:39:20 12/16/19 24 12/18/2023 UA/M W/RFL X CULTU RE, ROUTI NE microscopic examination COMMEN T Micro scopi c follo ws if indic ated. Not Available [facility] ([facility]) [address] [facility], [place], [address], 12/18/2023 09:39:20 12/16/19 24 12/18/2023 UA/M W/RFL X CULTU RE, ROUTI NE microscopic examination SEE BELOW: Micro scopi c was indic ated and was perfo rmed. Not Available [facility] ([facility]) [address] [facility], [place], [address], 12/18/2023 09:39:20 12/16/19 24 12/18/2023 UA/M W/RFL X CULTU RE, ROUTI NE WBC 0-5 /hpf 0 - 5 Not Available [facility] ([facility]) [address] [facility], [place], [address], 12/18/2023 09:39:20 12/16/19 24 12/18/2023 UA/M W/RFL X CULTU RE, ROUTI NE RBC NONE SEEN /hpf 0 - 2 Not Available [facility] ([facility]) [address] [facility], [place], [address], 12/18/2023 09:39:20 12/16/19 24 12/18/2023 UA/M W/RFL X CULTU RE, ROUTI NE epithelial cells (non renal) 0-10 /hpf 0 - 10 Not Available [facility] ([facility]) [address] [facility], [place], [address], 12/18/2023 09:39:20 12/16/19 24 12/18/2023 UA/M W/RFL X CULTMADAN YEAGER epithelial cells (renal) PRESS BUCKER Not Available [facility] ([facility]) [address], [place], [address], 12/18/2023 09:39:20 12/16/19 24 12/18/2023 UA/M W/RFL X CULTMaxine REMADAN NE casts NONE SEEN /lpf none seen Not Available [facility] ([facility]) [address] [facility], [place], [address], 12/18/2023 09:39:20 12/16/19 24 12/18/2023 UA/M W/RFL X CULTMaxine REMADAN cast type PRESS BUCKER Not Available [facility] ([facility]) [address] [facility], [place], [address], 12/18/2023 09:39:20 12/16/19 24 12/18/2023 UA/M W/RFL X CULTMaxine REMADAN crystals PRESEN T n/a abnormal Not Available [facility] ([facility]) [address] [facility], [place], [address], 12/18/2023 09:39:20 12/16/19 24 12/18/2023 UA/M W/RFL X CULTMaxine REMADAN crystal type CALCIU M OXALAT E n/a Not Available [facility] ([facility]) [address] [facility], [place], [address], 12/18/2023 09:39:20 12/16/19 24 12/18/2023 UA/M W/RFL X CULTMaxine REMADAN NE mucus threads PRESS BUCKER Not Available [facility] ([facility]) [address] [facility], [place], [address], 12/18/2023 09:39:20 12/16/19 24 12/18/2023 UA/M W/RFL X CULTU RE, ROUTI NE bacteria FEW none seen/f ew Not Available [facility] ([facility]) [address] [facility], [place], [address], 12/18/2023 09:39:20 12/16/19 24 12/18/2023 UA/M W/RFL X CULTU RE, ROUTI NE yeast PRESS BUCKER Not Available [facility] ([facility]) [address] [facility], [place], [address], 12/18/2023 09:39:20 12/16/19 24 12/18/2023 UA/M W/RFL X CULTU RE, ROUTI NE trichomonas PRESS BUCKER Not Available [facility] ([facility]) [address] [facility], [place], [address], 12/18/2023 09:39:20 12/16/19 24 12/18/2023 UA/M W/RFL X CULTU RE, ROUTI NE comment PRESS BUCKER Not Available [facility] ([facility]) [address] [facility], [place], [address], 12/18/2023 09:39:20 12/16/19 24 12/18/2023 UA/M W/RFL X CULTU RE, ROUTI NE urinalysis reflex COMMEN T This speci men will not refle x to a Urine Cultu re. Not Available [facility] ([facility]) [address] [facility], [place], [address], 12/18/2023 09:39:20 12/16/19 24 12/16/2023 urina lysis , dipst ick Leukocytes (reference range: negative lucille/ l) Trace Not Available [facility] [address], [place], [address], 12/16/2023 14:02:07 12/16/19 24 12/16/2023 urina lysis , dipst ick Nitrite (reference rage: negative mg/dl) negati ve Not Available [address], [place], [address], 12/16/2023 14:02:07 12/16/19 24 12/16/2023 urina lysis , dipst ick Urobilinogen (reference range: 0.2-1 mg/dl) 0.2 Not Available [address], [place], [address], 12/16/2023 14:02:12/16/19 24 12/16/2023 urina lysis , dipst ick Protein (reference range: negative mg/dl) Negati ve Not Available [address], [place], [address], 12/16/2023 14:02:12/16/19 24 12/16/2023 urina lysis , dipst ick pH (reference range: 5-7) 6.5 Not Available [address], [place], [address], 12/16/2023 14:02:12/16/19 24 12/16/2023 urina lysis , dipst ick Blood (reference range: negative Latrell/ l) Small Not Available [address], [place], [address], 12/16/2023 14:02:07 12/16/19 24 12/16/2023 urina lysis , dipst ick Specific Isabela (reference range: 1.005-1.030) 1.030 Not Available [address], [place], [address], 12/16/2023 14:02:07 12/16/19 24 12/16/2023 urina lysis , dipst ick Ketone (reference range: negative mg/dl) Negati ve Not Available [address], [place], [address], 12/16/2023 14:02:07 12/16/19 24 12/16/2023 urina lysis , dipst ick Bilirubin (reference range: negative mg/dl) Negati ve Not Available [address], [place], [address], 12/16/2023 14:02:07 12/16/19 24 12/16/2023 urina lysis , dipst ick Glucose (reference range: negative mg/dl) Negati ve Not Available [address], [place], [address], 12/16/2023 14:02:07 12/16/19 24 12/16/2023 urina lysis , dipst ick Appearance Clear Not Available [address], [place], [address], 12/16/2023 14:02:07 12/16/1912/16/2023 urina lysis , dipst ick Color Yellow Not Available [address], [place], [address], 12/16/2023 14:02:07 12/28/1912/29/2023 UA/M W/RFL X CULTU RE, ROUTI NE specific gravity >=1.03 0 1.005- 1.030 abnormal Not Available [facility] ([facility]) [address] [place], [address], 12/29/2023 10:36:47 12/28/1912/29/2023 UA/M W/RFL X CULTU RE, ROUTI NE pH 6.5 5.0-7. 5 Not Available [facility] ([facility]) [address] [facility], [place], [address], 12/29/2023 10:36:47 12/28/19 24 12/29/2023 UA/M W/RFL X CULTU RE, ROUTI NE urine-color YELLOW yellow Not Available [facility] ([facility]) [address] [facility], [place], [address], 12/29/2023 10:36:47 12/28/19 24 12/29/2023 UA/M W/RFL X CULTU RE, ROUTI NE appearance CLEAR clear Not Available [facility] ([facility]) [address] [facility], [place], [address], 12/29/2023 10:36:47 12/28/19 24 12/29/2023 UA/M W/RFL X CULTU RE, ROUTI NE WBC esterase NEGATI VE negati ve Not Available [facility] ([facility]) [address] [facility], [place], [address], 12/29/2023 10:36:47 12/28/19 24 12/29/2023 UA/M W/RFL X CULTU RE, ROUTI NE protein NEGATI VE negati ve/tra ce Not Available [facility] ([facility]) [address] [facility], [place], [address], 12/29/2023 10:36:47 12/28/19 24 12/29/2023 UA/M W/RFL X CULTU RE, ROUTI NE glucose NEGATI VE negati ve Not Available [facility] ([facility]) [address] [facility], [place], [address], 12/29/2023 10:36:47 12/28/19 24 12/29/2023 UA/M W/RFL X CULTU RE, ROUTI NE ketones NEGATI VE negati ve Not Available [facility] ([facility]) [address] [facility], [place], [address], 12/29/2023 10:36:47 12/28/19 24 12/29/2023 UA/M W/RFL X CULTU RE, ROUTI NE occult blood NEGATI VE negati ve Not Available [facility] ([facility]) [address] [place], [address], 12/29/2023 10:36:47 12/28/19 24 12/29/2023 UA/M W/RFL X CULTU RE, ROUTI NE bilirubin NEGATI VE negati ve Not Available [facility] ([facility]) [address] [place], [address], 12/29/2023 10:36:47 12/28/19 24 12/29/2023 UA/M W/RFL X CULTU RE, ROUTI NE urobilinogen ,semi-qn 0.2 mg/dL 0.2-1. 0 Not Available [facility] ([facility]) [address] [facility], [place], [address], 12/29/2023 10:36:47 12/28/19 24 12/29/2023 UA/M W/RFL X CULTU RE, ROUTI NE nitrite, urine NEGATI VE negati ve Not Available [facility] ([facility]) [address] [place], [address], 12/29/2023 10:36:47 12/28/19 24 12/29/2023 UA/M W/RFL X CULTU RE, ROUTI NE microscopic examination COMMEN T Micro scopi c follo ws if indic ated. Not Available [facility] ([facility]) [address] [place], [address], 12/29/2023 10:36:47 12/28/19 24 12/29/2023 UA/M W/RFL X CULTU RE, ROUTI NE microscopic examination SEE BELOW: Micro scopi c was indic ated and was perfo rmed. Not Available [facility] ([facility]) [address] [place], [address], 12/29/2023 10:36:47 12/28/19 24 12/29/2023 UA/M W/RFL X CULTU RE, ROUTI NE WBC NONE SEEN /hpf 0 - 5 Not Available [facility] ([facility]) [address] [facility], [place], [address], 12/29/2023 10:36:47 12/28/19 24 12/29/2023 UA/M W/RFL X CULTU RE, ROUTI NE RBC 0-2 /hpf 0 - 2 Not Available [facility] ([facility]) [address] [facility], [place], [address], 12/29/2023 10:36:47 12/28/19 24 12/29/2023 UA/M W/RFL X CULTU RE, ROUTI NE epithelial cells (non renal) 0-10 /hpf 0 - 10 Not Available [facility] ([facility]) [address] [facility], [place], [address], 12/29/2023 10:36:47 12/28/19 24 12/29/2023 UA/M W/RFL X CULTU RE, ROUTI NE epithelial cells (renal) PRESS BUCKER Not Available [facility] ([facility]) [address] [facility], [place], [address], 12/29/2023 10:36:47 12/28/19 24 12/29/2023 UA/M W/RFL X CULTU RE, ROUTI NE casts NONE SEEN /lpf none seen Not Available [facility] ([facility]) [address] [facility], [place], [address], 12/29/2023 10:36:47 12/28/19 24 12/29/2023 UA/M W/RFL X CULTU RE, ROUTI NE cast type PRESS BUCKER Not Available [facility] ([facility]) [address] [facility], [place], [address], 12/29/2023 10:36:47 12/28/19 24 12/29/2023 UA/M W/RFL X CULTU RE, ROUTI NE crystals PRESS BUCKER Not Available [facility] ([facility]) [address] [facility], [place], [address], 12/29/2023 10:36:47 12/28/19 24 12/29/2023 UA/M W/RFL X CULTU RE, ROUTI NE crystal type PRESS BUCKER Not Available [facility] ([facility]) [address] [facility], [place], [address], 12/29/2023 10:36:47 12/28/19 24 12/29/2023 UA/M W/RFL X CULTU RE, ROUTI NE mucus threads PRESS BUCKER Not Available [facility] ([facility]) [address] [facility], [place], [address], 12/29/2023 10:36:47 12/28/19 24 12/29/2023 UA/M W/RFL X CULTU RE, ROUTI NE bacteria NONE SEEN none seen/f ew Not Available [facility] ([facility]) [address] [facility], [place], [address], 12/29/2023 10:36:47 12/28/19 24 12/29/2023 UA/M W/RFL X CULTU RE, ROUTI NE yeast PRESS BUCKER Not Available [facility] ([facility]) [address] [facility], [place], [address], 12/29/2023 10:36:47 12/28/19 24 12/29/2023 UA/M W/RFL X CULTU RE, ROUTI NE trichomonas PRESS BUCKER Not Available [facility] ([facility]) [address] [place], [address], 12/29/2023 10:36:47 12/28/19 24 12/29/2023 UA/M W/RFL X CULTU RE, ROUTI NE comment PRESS BUCKER Not Available [facility] ([facility]) [address] [place], [address], 12/29/2023 10:36:47 12/28/19 24 12/29/2023 UA/M W/RFL X CULTU RE, ROUTI NE urinalysis reflex COMMEN T This speci men will not refle x to a Urine Cultu re. Not Available [facility] ([facility]) [address] [facility], [place], [address], 12/29/2023 10:36:47 12/28/19 24 12/28/2023 urina lysis , dipst ick Leukocytes (reference range: negative lucille/ l) Negati ve Not Available [address], [place], [address], 12/28/2023 10:33:47 12/28/19 24 12/28/2023 urina lysis , dipst ick Nitrite (reference rage: negative mg/dl) negati ve Not Available [address], [place], [address], 12/28/2023 10:33:47 12/28/19 24 12/28/2023 urina lysis , dipst ick Urobilinogen (reference range: 0.2-1 mg/dl) 0.2 Not Available [address], [place], [address], 12/28/2023 10:33:47 12/28/19 24 12/28/2023 urina lysis , dipst ick Protein (reference range: negative mg/dl) Trace Not Available [address], [place], [address], 12/28/2023 10:33:47 12/28/19 24 12/28/2023 urina lysis , dipst ick pH (reference range: 5-7) 6.5 Not Available [address], [place], [address], 12/28/2023 10:33:47 12/28/19 24 12/28/2023 urina lysis , dipst ick Blood (reference range: negative Latrell/ l) Negati ve Not Available [address], [place], [address], 12/28/2023 10:33:47 12/28/19 24 12/28/2023 urina lysis , dipst ick Specific Isabela (reference range: 1.005-1.030) 1.030 Not Available [address], [place], [address], 12/28/2023 10:33:47 12/28/19 24 12/28/2023 urina lysis , dipst ick Ketone (reference range: negative mg/dl) Negati ve Not Available [address], [place], [address], 12/28/2023 10:33:47 12/28/19 24 12/28/2023 urina lysis , dipst ick Bilirubin (reference range: negative mg/dl) Negati ve Not Available [address], [place], [address], 12/28/2023 10:33:47 12/28/19 24 12/28/2023 urina lysis , dipst ick Glucose (reference range: negative mg/dl) Negati ve Not Available [address], [place], [address], 12/28/2023 10:33:47 12/28/19 24 12/28/2023 urina lysis , dipst ick Appearance Clear Not Available [address], [place], [address], 12/28/2023 10:33:47 12/28/19 24 12/28/2023 urina lysis , dipst ick Color Yellow Not Available [facility] [address], [place], [address], 12/28/2023 10:33:47 06/30/20 24 07/05/2024 [id number] 2 9+OXY CODON E+TALENT ACQUISITION DIRECTOR -SCR amphetamines screen, urine COMMEN T NG/mL Test not perfo rmed. The requi red speci men for the test order ed was not recei levi. SYRIN GE BOTTL E RECEI LEVI Not Available [facility] ([facility]) [address] [facility], [place], [address], 07/05/2024 14:13:04 06/30/20 24 07/05/2024 [id number] 2 9+OXY CODON E+TALENT ACQUISITION DIRECTOR -SCR barbiturates screen, urine TNP Test not perfo rmed Not Available [facility] ([facility]) [address] [place], [address], 07/05/2024 14:13:04 06/30/20 24 07/05/2024 [id number] 2 9+OXY CODON E+TALENT ACQUISITION DIRECTOR -SCR benzodiazepi robert screen, urine TNP Test not perfo rmed Not Available [facility] ([facility]) [address] [place], [address], 07/05/2024 14:13:04 06/30/20 24 07/05/2024 [id number] 2 9+OXY CODON E+TALENT ACQUISITION DIRECTOR -SCR cannabinoid screen, urine TNP Test not perfo rmed Not Available [facility] ([facility]) [address] [place], [address], 07/05/2024 14:13:04 06/30/20 24 07/05/2024 [id number] 2 9+OXY CODON E+TALENT ACQUISITION DIRECTOR -SCR cocaine (metab.) screen, urine TNP Test not perfo rmed Not Available [facility] ([facility]) [address] [facility], [place], [address], 07/05/2024 14:13:04 06/30/20 24 07/05/2024 [id number] 2 9+OXY CODON E+TALENT ACQUISITION DIRECTOR -SCR opiate screen, urine TNP Test not perfo rmed Not Available [facility] ([facility]) [address] [facility], [place], [address], 07/05/2024 14:13:04 06/30/20 24 07/05/2024 [id number] 2 9+OXY CODON E+TALENT ACQUISITION DIRECTOR -SCR oxycodone/ox ymorphone, urine TNP Test not perfo rmed Not Available [facility] ([facility]) [address] [facility], [place], [address], 07/05/2024 14:13:04 06/30/20 24 07/05/2024 [id number] 2 9+OXY CODON E+TALENT ACQUISITION DIRECTOR -SCR phencyclidin e screen, urine TNP Test not perfo rmed Not Available [facility] ([facility]) [address] [place], [address], 07/05/2024 14:13:04 06/30/20 24 07/05/2024 [id number] 2 9+OXY CODON E+TALENT ACQUISITION DIRECTOR -SCR methadone screen, urine TNP Test not perfo rmed Not Available [facility] ([facility]) [address] [place], [address], 07/05/2024 14:13:04 06/30/20 24 07/05/2024 [id number] 2 9+OXY CODON E+TALENT ACQUISITION DIRECTOR -SCR propoxyphene screen, urine TNP Test not perfo rmed Not Available [facility] ([facility]) [address] [place], [address], 07/05/2024 14:13:04 06/30/20 24 07/05/2024 [id number] 2 9+OXY CODON E+TALENT ACQUISITION DIRECTOR -SCR creatinine, urine PRESS BUCKER Not Available [facility] ([facility]) [address] [facility], [place], [address], 07/05/2024 14:13:04 06/30/20 24 07/05/2024 [id number] 2 9+OXY CODON E+TALENT ACQUISITION DIRECTOR -SCR pH, urine PRESS BUCKER Not Available [facility] ([facility]) [address] [facility], [place], [address], 07/05/2024 14:13:04 06/30/20 24 07/05/2024 [id number] 2 9+OXY CODON E+TALENT ACQUISITION DIRECTOR -SCR please note: PRESS BUCKER Not Available [facility] ([facility]) [address] [facility], [place], [address], 07/05/2024 14:13:04 06/30/20 24 07/05/2024 SPECI MEN STATU S REPOR T specimen status report COMMEN T Test not perfo rmed. The requi red speci men for the test order ed was not recei levi. TEST: [id number] 2 [id number] 2 9+Oxy codon e+Senior Instrumentation Engineer -Scr SYRIN GE BOTTL E RECEI LEVI Not Available [facility] ([facility]) [address] [facility], [place], [address], 07/05/2024 14:13:04 08/15/20 24 08/15/2024 [id number] 2 9+OXY CODON E+TALENT ACQUISITION DIRECTOR -SCR please note: Commen t This assay provi jonas a preli minar y uncon firme d lauren tical test resul t that may be suita ble for clini kristan manag ement of patie nts in certa in situa tions . Drug- test resul ts shoul d be inter prete d in the jordi xt of clini kristan infor panfilo weir Patie nt metab olic varia bles, speci fic drug chemi stry, and speci men jesus cteri stics can affec t test outco me. Techn ical consu ltati on is avail able if a test resul t is incon siste nt with an expec jair outco me. Email : [email or web address] [email or web address] Phone : [phone] Not Available [facility] ([facility]) [address] [facility], [place], [address], 08/16/2024 20:16:34 08/15/20 24 08/16/2024 [id number] 2 9+OXY CODON E+TALENT ACQUISITION DIRECTOR -SCR amphetamines screen, urine Negati ve NG/mL cutoff =1000 Not Available [facility] ([facility]) [address] [place], [address], 08/16/2024 20:16:34 08/15/2008/16/2024 [id number] 2 9+OXY CODON E+TALENT ACQUISITION DIRECTOR -SCR barbiturates screen, urine Negati ve NG/mL cutoff =200 Not Available [facility] ([facility]) [address] [place], [address], 08/16/2024 20:16:34 08/15/20 24 08/16/2024 [id number] 2 9+OXY CODON E+TALENT ACQUISITION DIRECTOR -SCR benzodiazepi robert screen, urine Negati ve NG/mL cutoff =200 Not Available [facility] ([facility]) [address] [place], [address], 08/16/2024 20:16:34 08/15/20 24 08/16/2024 [id number] 2 9+OXY CODON E+TALENT ACQUISITION DIRECTOR -SCR cannabinoid screen, urine Positi ve NG/mL cutoff =20 abnormal Not Available [facility] ([facility]) [address] [place], [address], 08/16/2024 20:16:34 08/15/20 24 08/16/2024 [id number] 2 9+OXY CODON E+TALENT ACQUISITION DIRECTOR -SCR cocaine (metab.) screen, urine Negati ve NG/mL cutoff =300 Not Available [facility] ([facility]) [address] [place], [address], 08/16/2024 20:16:34 08/15/20 24 08/16/2024 [id number] 2 9+OXY CODON E+TALENT ACQUISITION DIRECTOR -SCR opiate screen, urine Negati ve NG/mL cutoff =300 Opiat e test inclu jonas Codei ne, Morph ine, [place] morph one, [place] codon e. Not Available [facility] ([facility]) [address] [place], [address], 08/16/2024 20:16:34 08/15/20 24 08/16/2024 [id number] 2 9+OXY CODON E+TALENT ACQUISITION DIRECTOR -SCR oxycodone/ox ymorphone, urine Negati ve NG/mL cutoff =100 Test inclu jonas Oxyco done and Oxymo rphon e Not Available [facility] ([facility]) [address] [place], [address], 08/16/2024 20:16:34 08/15/20 24 08/16/2024 [id number] 2 9+OXY CODON E+TALENT ACQUISITION DIRECTOR -SCR phencyclidin e screen, urine Negati ve NG/mL cutoff =25 Not Available [facility] ([facility]) [address] [place], [address], 08/16/2024 20:16:34 08/15/20 24 08/16/2024 [id number] 2 9+OXY CODON E+TALENT ACQUISITION DIRECTOR -SCR methadone screen, urine Negati ve NG/mL cutoff =300 Not Available [facility] ([facility]) [address] [place], [address], 08/16/2024 20:16:34 08/15/20 24 08/16/2024 [id number] 2 9+OXY CODON E+TALENT ACQUISITION DIRECTOR -SCR propoxyphene screen, urine Negati ve NG/mL cutoff =300 Not Available [facility] ([facility]) [address] [place], [address], 08/16/2024 20:16:34 08/15/20 24 08/16/2024 [id number] 2 9+OXY CODON E+TALENT ACQUISITION DIRECTOR -SCR creatinine, urine 126.1 mg/dL 20.0-3 00.0 Not Available [facility] ([facility]) [address] [facility], [place], [address], 08/16/2024 20:16:34 08/15/20 24 08/16/2024 [id number] 2 9+OXY CODON E+TALENT ACQUISITION DIRECTOR -SCR pH, urine 6.0 4.5-8. 9 Not Available [facility] ([facility]) [address] [facility], [place], [address], 08/16/2024 20:16:34 02/06/20 25 02/05/2025 urina lysis , dipst ick Leukocytes (reference range: negative lucille/ l) Trace Not Available [address], [place], [address], 02/05/2025 16:08:10 02/06/20 25 02/05/2025 urina lysis , dipst ick Nitrite (reference rage: negative mg/dl) negati ve Not Available [address], [place], [address], 02/05/2025 16:08:10 02/06/20 25 02/05/2025 urina lysis , dipst ick Urobilinogen (reference range: 0.2-1 mg/dl) 0.2 Not Available [address], [place], [address], 02/05/2025 16:08:10 02/06/20 25 02/05/2025 urina lysis , dipst ick Protein (reference range: negative mg/dl) Large Not Available [address], [place], [address], 02/05/2025 16:08:10 02/06/20 25 02/05/2025 urina lysis , dipst ick pH (reference range: 5-7) 5.5 Not Available [address], [place], [address], 02/05/2025 16:08:10 02/06/20 25 02/05/2025 urina lysis , dipst ick Blood (reference range: negative Latrell/ l) Modera te Not Available [address], [place], [address], 02/05/2025 16:08:10 02/06/20 25 02/05/2025 urina lysis , dipst ick Specific Isabela (reference range: 1.005-1.030) 1.030 Not Available [address], [place], [address], 02/05/2025 16:08:10 02/06/20 25 02/05/2025 urina lysis , dipst ick Ketone (reference range: negative mg/dl) Negati ve Not Available [address], [place], [address], 02/05/2025 16:08:10 02/06/20 25 02/05/2025 urina lysis , dipst ick Bilirubin (reference range: negative mg/dl) Negati ve Not Available [address], [place], [address], 02/05/2025 16:08:10 02/06/20 25 02/05/2025 urina lysis , dipst ick Glucose (reference range: negative mg/dl) Negati ve Not Available [address], [place], [address], 02/05/2025 16:08:10 02/06/20 25 02/05/2025 urina lysis , dipst ick Appearance Clear Not Available [address], [place], [address], 02/05/2025 16:08:10 02/06/20 25 02/05/2025 urina lysis , dipst ick Color Yellow Not Available [facility] [address], [place], [address], 02/05/2025 16:08:10 01/27/20 24 01/27/2024 CT, chest , w/o contr ast No observ ation record ed. [id number] [facility] [address], [place], [address], 02/01/2024 15:22:43 Result Notes None recorded. Problems Name Problem SNOMED Code Status Onset Date Resolution Date Notes Provider Name and Address Organization Details Recorded Time Benign essential hypertensi on 6867841 Active Not Available [facility] 3 13:35:58 Hernia of abdominal wall Active Not Available [facility] 3 13:35:58 Constipati on 89070041 Active Not Available [facility] 3 13:35:58 Otalgia 76633809 Active Not Available [facility] 3 13:35:58 Anxiety state 069933247 Active Not Available [facility] 3 13:35:58 Abdominal pain 12295200 Active Not Available [facility] 3 13:35:58 Incisional hernia 992624184 Active Not Available [facility] 3 13:35:58 Biliary sludge 07387159 Active Not Available [facility] 3 13:35:59 Rib pain 049317398 Active Not Available [facility] 3 13:35:59 Chest pain 55535080 Active Not Available [facility] 3 13:35:59 Depressive disorder 01618044 Active Not Available [facility] 3 13:35:59 Sinusitis 12272522 Active Not Available [facility] 3 13:35:59 Migraine 27981170 Active Not Available [facility] 3 13:35:59 Hypertensi ve disorder 75353333 Active Not Available [facility] 3 13:35:59 Osteoarthr itis 906932799 Active Not Available [facility] 3 13:35:59 Obesity 703653636 Active Not Available [facility] 3 13:35:59 Bunion 039912917 Active Not Available [facility] 3 13:36:00 Temporoman dibular joint disorder 82279716 Active Not Available [facility] 3 13:36:00 Solitary nodule of lung 423710144 Active Does not need any F/U 5 Not Available [facility] 3 13:36:00 Idiopathic polyarthri tis 57495863 Active Not Available [facility] 3 13:36:00 Pain of shoulder region 28118912 Active Not Available [facility] 3 13:36:00 Anxiety 78670048 Active Not Available [facility] 3 13:36:00 Pain of hip region 08597825 Active Not Available [facility] 3 13:36:00 Pain of breast 49577248 Active Not Available [facility] 3 13:36:01 Upper respirator y infection 52233055 Active Not Available [facility] 3 13:36:01 Dysfunctio n of eustachian tube 18657315 Active Not Available [facility] 3 13:36:01 Carpal tunnel syndrome 37190816 Active Not Available [facility] 3 13:36:01 Prediabete s 181324478 Active 2021 Not Available [facility] 3 13:36:01 Obstructiv e sleep apnea syndrome 71973884 Active Not Available [facility] 3 13:36:01 Fatigue 97044534 Active Not Available [facility] 3 13:36:02 Skin lesion 92089792 Active Not Available [facility] 3 13:36:02 Acute sinusitis 36854958 Active 2022 Kamron Mckeon MD [address] [place] [address], [place] [address] [address], [place], [address] , [facility] 3 16:06:31 Ingrowing nail of toe of left foot [id number] 9107 Active 2022 Kamron Mckeon MD [address], [address] , [facility] 3 08:16:33 Urge incontinen ce of urine 72251760 Active 2022 Kam[facility] Mckeon MD [address] [facility] [address], [place], [address] , [facility] 3 08:18:28 Onychomyco sis of toenails 246014192 Active 2022 Kamron Mckeon MD [address] [facility] [address], [address] , [facility] 3 08:19:58 Arthritis 4904968 Active 2022 Melissa ambrocio, [place] [facility] 3 11:50:33 Dizziness 590198341 Active 2022 Melissa ambrocio, [place] [facility] 3 11:50:53 Headache 46225226 Active 2022 eMlissa ambrocio, [place] [facility] 3 11:51:24 Sleep disorder 79723868 Active 2022 Melissa ambrocio, [place] [facility] 3 11:51:45 Rheumatoid arthritis 99310771 Active 2022 Melissa ambrocio, [place] [facility] 3 11:52:08 Weight gain 5828226 Active 2022 Kamron Mckeon MD [address], [address] , [facility] 3 11:43:29 Hypercalce ximena 31441875 Active 2022 Kamron Mckeon MD [address], [address] , [facility] 3 11:47:12 Abscess 351342270 Active 2022 Kamron Mckeon MD [address], [address], [place], [address] , [facility] 3 11:48:42 Sore throat 794616686 Active 2022 Key Good LPN [facility], [facility] 3 10:56:11 Pain in throat 346875260 Active 2022 Kamron Mckeon MD [address], [address], [place], [address] , [facility] 3 16:19:39 Nodule of lung 693388968 Active 2022 Kamron Mckeon MD [address], [address], [place], [address] , [facility] 3 15:56:56 Cervical lymphadeno john 450321279 Active 2022 Kamron Mckeon MD [address], [address], [place], [address] , [facility] 3 18:13:58 COVID-19 166032339 Active 2022 GILBERTO Ruiz-C [address], [address], [place], [address] , [facility] 3 11:49:59 Dysuria 76234774 Active 2023 Kamron Mckeon MD [address], [address], [place], [address] , [facility] 4 14:01:59 Acute urinary tract infection 553564062 Active 2024 GILBERTO King-C [address], [address], [place], [address] , [facility] 5 16:23:04 Notes:CONCUSSION OR SPINAL T RAUMA Problem Notes None recorded. Procedures Surgical History Date Name Laterality Status Provider Name and Address Organization Details Recorded Time 08/10/20 23 Blank Procedure Note completed Lauro Medellin DPM [address], [address], [place], [address], [facility] [employer] [facility] [employer] 08/10/2023 12:22:25 05/17/20 23 Nail Debridement completed Lauro Medellin DPM [address], [place], [address], [facility] [employer] 05/19/2023 10:24:19 Cholecystectomy completed Not Available [facility] 01/13/2023 13:35:19 Hernia Repair completed Not Available [facility] 01/13/2023 13:35:19 Ankle Surgery completed Not Available [facility] 01/13/2023 13:35:19 total replacement of hip completed Not Available [facility] 01/13/2023 13:35:19 Appendectomy completed Not Available [facility] 01/13/2023 13:35:19 operation on facial joint completed Not Available [facility] 01/13/2023 13:35:19 Carpal tunnel completed Not Available [facility] 01/13/2023 13:35:19 Imaging Results None recorded. Procedure Notes None recorded. Medical Equipment None Reported. Allergies Allergen ID Allergen Name Allergen Category Reaction Reaction Severity Criticality Documentation Date Start Date Code Code System Note Provider Name and Address Organization Details Recorded Time 67436 zolpidem medicatio n itching Not available Not available 01/13/2023 89145 RxNorm Not Available [facility] 3 13:38:24 88647 acetamino phen / hydrocodo ne medicatio n itching mild Not available 01/13/2023 51942 2 RxNorm Not Available [facility] 3 13:38:24 55693 Ambien medicatio n itching Not available Not available 05/17/2023 36035 5 RxNorm Melissa ambrocio, [facility] [employer] 3 11:46:19 Medications Name Sig Start Date Stop Date Status Note LastModified by Organization Details LastModified Time compounded medication inject 2mg sub-q every week 2024 active Not Available Not Available Not Avai lable compounded medication inject 2mg sub-q every week active Not Available Not Available No t Available compounded medication inject 2mg sub-q every week 2023 active Not Available Not Available Not Avai lable cmp semaglutid e/cyan 2.5mg/0.5m g/ml INJECT 10 UNITS (0.25mg) SUBCUTANE OUSLY EVERY WEEK FOR 4 WEEKS INJECT 20 UNITS (0.5mg) SUBCUTANE OUSLY EVERY WEEK FOR 4 WEEKS active Not Available Not Available No t Available compounded medication inject (40 units on syringe) subcutane ously weekly active Not Available Not Available No t Available compounded medication 1 mg sc weekly for 4 weeks 2023 active Not Available Not Available Not Avai lable compounded medication inject 2mg sub-q every week 2023 active Not Available Not Available Not Avai lable compounded medication 2 mg sc weekly for 4 weeks 2024 active Not Available Not Available Not Avai lable compounded medication 1 mg sc weekly for 4 weeks 2023 active Not Available Not Available Not Avai lable compounded medication inject 2mg sub-q every week 2024 active Not Available Not Available Not Avai lable compounded medication inject 2mg sub-q every week active Not Available Not Available No t Available c-semaglut tereso 2.5mg/ml inject (80 units on a syringe) subcutane ously weekly active Not Available Not Available No t Available amoxicilli n 500 mg capsule active Not Available Not Available Not Available Miralax 17 gram/dose oral powder 1 capful in liquid po qday prn constipat ion 08/03 completed Not Available Not Available Not Available promethazi ne-DM 6.25 mg-15 mg/5 mL oral syrup TAKE 10 ML BY MOUTH AT BEDTIME NEEDED active Not Available Not Available No t Available Xylocaine with Epinephrin e 2 %-1:100,00 0 injection solution 3 ml injected sc x 1 11/19 completed Not Available Not Available Not Available prednisone 10 mg tablet active Not Available Not Available Not Available venlafaxin e ER 75 mg capsule,ex tended release 24 hr TAKE 1 CAPSULE BY MOUTH ONCE DAILY WITH 150 MG CAPSULE 2024 active Not Available Not Available Not Avai lable doxycyclin e hyclate 100 mg capsule TAKE 1 CAPSULE BY MOUTH TWICE DAILY FOR 10 DAYS active Not Available Not Available No t Available Zyrtec-D 5 mg-120 mg tablet,ext ended release Take 1 tablet every day by oral route for 5 days. 10/02 completed Not Available Not Available Not Available trazodone 50 mg tablet 05/17 completed Not Available Not Available Not Available azithromyc in 250 mg tablet TAKE 2 TABLETS BY MOUTH ON DAY 1, AND THEN TAKE 1 TABLET BY MOUTH ONCE A DAY ON DAY 2 THROUGH DAY 5 08/14 completed Not Available Not Available Not Available fluconazol e 150 mg tablet 1 po qd x 1, repeat in 72 hours if needed active Not Available Not Available No t Available benzonatat e 200 mg capsule 12/10 completed Not Available Not Available Not Available sumatripta n 100 mg tablet 09/10 completed Not Available Not Available Not Available hydrocodon e 5 mg-acetami nophen 325 mg tablet TAKE 1 TABLET BY MOUTH EVERY 4 HOURS NEEDED FOR PAIN active Not Available Not Available No t Available meloxicam 15 mg tablet TAKE 1 TABLET BY MOUTH ONCE DAILY FOR 14 DAYS 05/17 completed Not Available Not Available Not Available promethazi ne 12.5 mg tablet TAKE 1 TABLET BY MOUTH EVERY 8 HOURS NEEDED FOR NAUSEA FOR 2 DAYS 03/03 completed Not Available Not Available Not Available Effexor XR 37.5 mg capsule,ex tended release Take 1 capsule every day by oral route. 2012 active Not Available Not Available Not Avai lable prednisone 20 mg tablet TAKE 2 TABLETS BY MOUTH DAILY FOR 5 DAYS active Not Available Not Available No t Available propranolo l ER 60 mg capsule,24 hr,extende d release 11/23 completed Not Available Not Available Not Available sertraline 100 mg tablet 07/13 completed Not Available Not Available Not Available prednisone 5 mg tablet 09/10 completed Not Available Not Available Not Available sulfasalaz ine 500 mg tablet,del ayed release TAKE 2 TABLETS BY MOUTH TWICE DAILY 03/03 completed Not Available Not Available Not Available methylpred nisolone 4 mg tablet 08/14 completed Not Available Not Available Not Available phentermin e 15 mg capsule Take 1 capsule every day by oral route. 05/25 completed Not Available Not Available Not Available venlafaxin e ER 150 mg capsule,ex tended release 24 hr TAKE 1 CAPSULE BY MOUTH ONCE DAILY WITH 75 MG DOSAGE 2024 active Not Available Not Available Not Avai lable Nexium 40 mg capsule,de layed release Take 1 capsule every day by oral route. 2012 active Not Available Not Available Not Avai lable metronidaz ole 500 mg tablet Take 1 tablet(s) EVERY 8 HOURS by oral route. NO ALCOHOL active Not Available Not Available No t Available hydroxyzin e HCl 50 mg tablet active Not Available Not Available No t Available phentermin e 37.5 mg tablet TAKE ONE TABLET BY MOUTH ONCE DAILY 06/23 completed Not Available Not Available Not Available acetaminop hen 300 mg-codeine 30 mg tablet active Not Available Not Available Not Available ciprofloxa annette 500 mg tablet 06/23 completed Not Available Not Available Not Available sulfametho xazole 800 mg-trimeth oprim 160 mg tablet Take 1 tablet every 12 hours by oral route for 7 days. 12/10 completed Not Available Not Available Not Available omeprazole 40 mg capsule,de layed release 09/10 completed Not Available Not Available Not Available leflunomid e 20 mg tablet 1 po qday 03/03 completed Not Available Not Available Not Available triamcinol one acetonide 0.1 % topical cream APPLY A THIN LAYER TO THE AFFECTED AREA(S) BY TOPICAL ROUTE 2 TIMES PER DAY active Not Available Not Available No t Available phentermin e 30 mg capsule Take 1 capsule every day by oral route. active Not Available Not Available No t Available butalbital -acetamino phen-caffe ine 50 mg-325 mg-40 mg tablet TAKE ONE TABLET BY MOUTH EVERY 6 HOURS NEEDED 12/10 completed Not Available Not Available Not Available ketorolac 10 mg tablet TAKE 1 TABLET BY MOUTH EVERY 6 HOURS NEEDED FOR MIGRAINE. DO NOT TAKE MORE THAN 2 IN A DAYS OR FOR MORE THAN 2 CONSECTUT LAMONT DAYS 08/14 completed Not Available Not Available Not Available Macrobid 100 mg capsule Take 1 capsule every 12 hours by oral route. 2024 active Not Available Not Available Not Avai lable nortriptyl ine 25 mg capsule 09/10 completed Not Available Not Available Not Available zonisamide 100 mg capsule 09/10 completed Not Available Not Available Not Available oxycodone- acetaminop hen 5 mg-325 mg tablet TAKE 1 TO 2 TABLETS BY MOUTH EVERY 4 TO 6 HOURS NEEDED FOR PAIN (SCALE SCORE 7 10) MAX DOSE PER DAY 6 TABLETS 03/03 completed Not Available Not Available Not Available amoxicilli n 875 mg tablet TAKE 1 TABLET BY MOUTH EVERY 12 HOURS FOR 7 DAYS 08/14 completed Not Available Not Available Not Available alprazolam 0.25 mg tablet 12/10 completed Not Available Not Available Not Available prednisolo ne acetate 1 % eye drops,susp ension 09/10 completed Not Available Not Available Not Available lorazepam 0.5 mg tablet TAKE ONE TABLET BY MOUTH ONCE DAILY NEEDED 09/07 completed Not Available Not Available Not Available Feldene 10 mg capsule Take 1 capsule every day by oral route. 01/20 completed Not Available Not Available Not Available prednisone 1 mg tablet 09/10 completed Not Available Not Available Not Available amitriptyl ine 10 mg tablet 12/10 completed Not Available Not Available Not Available benzonatat e 100 mg capsule TAKE 1 CAPSULE BY MOUTH THREE TIMES DAILY FOR 10 DAYS 08/19 completed Not Available Not Available Not Available hyoscyamin e 0.125 mg disintegra ting tablet Place 1 tablet every 4 hours by sublingua l route. 05/25 completed Not Available Not Available Not Available cephalexin 500 mg capsule TAKE 1 CAPSULE BY MOUTH THREE TIMES DAILY FOR 7 DAYS active Not Available Not Available No t Available pantoprazo le 40 mg tablet,del ayed release Take 1 tablet every day by oral route. 05/17 completed Not Available Not Available Not Available oseltamivi r 75 mg capsule 1 po qday x 10 days 12/29 completed Not Available Not Available Not Available lisinopril 10 mg tablet 07/13 completed Not Available Not Available Not Available hyoscyamin e 0.125 mg sublingual tablet 05/25 completed Not Available Not Available Not Available propranolo l ER 80 mg capsule,24 hr,extende d release TAKE 1 CAPSULE BY MOUTH ONCE DAILY 06/23 completed Not Available Not Available Not Available promethazi ne 25 mg tablet 11/22 completed Not Available Not Available Not Available polymyxin B sulfate 10,000 unit-trime thoprim 1 mg/mL eye drops 01/26 completed Not Available Not Available Not Available butalbital -aspirin-c affeine 50 mg-325 mg-40 mg tablet TAKE ONE TABLET BY MOUTH EVERY 6 HOURS NEEDED 09/07 completed Not Available Not Available Not Available diclofenac potassium 50 mg tablet TAKE 1 TABLET BY MOUTH TWICE DAILY NEEDED FOR PAIN active Not Available Not Available No t Available gabapentin 300 mg capsule TAKE 1 CAPSULE BY MOUTH TWICE DAILY active Not Available Not Available No t Available omeprazole 20 mg capsule,de layed release Take 1 capsule every day by oral route. 09/07 completed using otc Not Available Not Available Not Available diclofenac sodium 75 mg tablet,del ayed release TAKE 1 TABLET BY MOUTH TWICE DAILY active Not Available Not Available No t Available zolpidem 5 mg tablet 1 po qhs prn active Not Available Not Available No t Available lorazepam 1 mg tablet Take 1 tablet by mouth three times daily as needed 2024 active Not Available Not Available Not Avai lable hydroxychl oroquine 200 mg tablet TAKE 1 TABLET BY MOUTH TWICE DAILY active Not Available Not Available No t Available lisinopril 10 mg-hydroch lorothiazi de 12.5 mg tablet Take 1 tablet by mouth once daily 2024 active Not Available Not Available Not Avai lable cefuroxime axetil 500 mg tablet active Not Available Not Available No t Available levofloxac in 750 mg tablet 01/26 completed Not Available Not Available Not Available methylpred nisolone 4 mg tablets in a dose pack TAKE BY MOUTH DIRECTED ON INSIDE OF PACKAGE 08/19 completed Not Available Not Available Not Available albuterol sulfate HFA 90 mcg/actuat ion aerosol inhaler INHALE 1 TO 2 PUFFS BY MOUTH EVERY 4 HOURS NEEDED FOR WHEEZING 05/17 completed Not Available Not Available Not Available ketoconazo le 2 % topical cream APPLY TO THE AFFECTED AREA(S) left great toenail bY TOPICAL ROUTE ONCE DAILY active Not Available Not Available No t Available ondansetro n 4 mg disintegra ting tablet DISSOLVE 1 TABLET IN MOUTH EVERY 8 HOURS NEEDED FOR NAUSEA FOR VOMITING active Not Available Not Available No t Available piroxicam 20 mg capsule 08/14 completed Not Available Not Available Not Available fluticason e propionate 50 mcg/actuat ion nasal spray,susp ension USE 1 SPRAY(S) IN EACH NOSTRIL ONCE DAILY 05/17 completed Not Available Not Available Not Available doxycyclin e hyclate 100 mg tablet TAKE 1 TABLET BY MOUTH TWICE DAILY FOR 10 DAYS 08/14 completed Not Available Not Available Not Available dicyclomin e 10 mg capsule 12/10 completed Not Available Not Available Not Available phentermin e 37.5 mg capsule Take 1 capsule every day by oral route for 15 days. 11/15 completed Not Available Not Available Not Available naproxen 500 mg tablet 08/14 completed Not Available Not Available Not Available amoxicilli n 875 mg-potassi um clavulanat e 125 mg tablet TAKE 1 TABLET BY MOUTH TWICE DAILY FOR 10 DAYS 08/14 completed Not Available Not Available Not Available rizatripta n 5 mg tablet 09/10 completed Not Available Not Available Not Available OraMagicRx mouthwash for gargles three times a day with 10ml liguid. 08/14 completed Not Available Not Available Not Available metoprolol tartrate 25 mg tablet Take 1 tablet twice a day by oral route. 12/10 completed Not Available Not Available Not Available TriLyte With Flavor Packets 420 gram oral solution active Not Available Not Available Not Available Mucinex D 60 mg-600 mg tablet,ext ended release Take per package instructi ons 05/24 completed Not Available Not Available Not Available Fioricet 2012 active Not Available Not Available Not Avai lable Humira 11/19 completed Not Available Not Available Not Available hydrocodon e 5 mg-acetami nophen 300 mg tablet Take 1 tablet every 12 hours by oral route for 10 days. 12/10 completed Not Available Not Available Not Available Toviaz 4 mg tablet,ext ended release Take 1 tablet every day by oral route. 04/15 completed Not Available Not Available Not Available fesoterodi ne ER 8 mg tablet,ext ended release 24 hr Take 1 tablet by mouth once daily active Not Available Not Available No t Available Virtussin AC 10 mg-100 mg/5 mL oral liquid Take 10 mL every 4 hours by oral route as needed for 7 days. 09/10 completed Not Available Not Available Not Available Rexulti 1 mg tablet Take 1 tablet by mouth once daily active Not Available Not Available No t Available Humira(CF) Pen 40 mg/0.4 mL subcutaneo us kit active Not Available Not Available Not Available Aimovig Autoinject or 70 mg/mL subcutaneo us auto-injec tor INJECT 1 ML SUBCUTANE OUSLY ONCE EVERY 30 DAYS 09/10 completed Not Available Not Available Not Available Emgality 120 mg/mL subcutaneo us syringe 1 ml sc qmonth 03/03 completed Not Available Not Available Not Available Aimovig Autoinject or 140 mg/mL subcutaneo us auto-injec tor INJECT 140 MG SUBCUTANE OUSLY ONCE EVERY 30 DAYS active Not Available Not Available No t Available Ubrelvy 100 mg tablet TAKE 1 TABLET BY MOUTH ONCE NEEDED FOR MIGRAINE MAY REPEAT DOSE ONCE IN 2 HOURS IF NO RELIEF DO NOT EXCEED 2 DOSES IN 24 HOURS active Not Available Not Available No t Available Ubrelvy 50 mg tablet TAKE 1 TABLET BY MOUTH NEEDED FOR MIGRAINE MAY REPEAT DOSE ONCE IN 2 HOURS IF NO RELIEF. DO NOT EXCEED 2 DOSES IN 24 HOURS. 03/03 completed Not Available Not Available Not Available [facility] disintegra ting tablet 03/03 completed Not Available Not Available Not Available ID NOW COVID-19 Test Kit TEST DIRECTED TODAY 11/19 completed Not Available Not Available Not Available Flucelvax Quad (PF) 60 mcg (15 mcg x 4)/0.5 mL IM syringe ADM 0.5ML IM UTD active Not Available Not Available No t Available Wegovy 0.25 mg/0.5 mL subcutaneo us pen injector 0.25 mg sc qweek 08/14 completed Not Available Not Available Not Available Wegovy 0.5 mg/0.5 mL subcutaneo us pen injector 0.5 ml sc qweek 08/14 completed Not Available Not Available Not Available Flowflex COVID-19 Antigen Home Test kit active Not Available Not Available Not Available Paxlovid 300 mg (150 mg x 2)-100 mg tablets in a dose pack TAKE 3 TABLETS TOGETHER (TWO 150 MG NIRMATREL VIR TABLETS AND ONE 100 MG RITONAVIR TABLET) BY MOUTH TWICE DAILY FOR 5 DAYS. HOLD UBRELVY WHILE TAKING PAXLOVID 08/14 completed Not Available Not Available Not Available Mounjaro 2.5 mg/0.5 mL subcutaneo us pen injector 0.5 mg sc qweek 06/29 completed Not Available Not Available Not Available Vitals Date Recorded Body height Provider Name an d Address Organization Details Last Updated DateTime 12/28/2023 167.64 cm Lanie Tiwari CMA [place] [employer] [facility] [employer] 12/28/2023 16:23:02 Date Recorded Systolic blood pressure Diastolic blood pressure Provider Name and Address Organization Details Last Updated DateTime 02/23/2024 132 mm[Hg] 82 mm[Hg] Kamron Mckeon MD [address] [place] [address], [id number], [place] [employer] [facility] [employer] 02/23/2024 16:38:14 Date Recorded Body height Body mass index (BMI) Body weight Body temperature Heart rate Oxygen saturation Oxygen saturation in Arterial blood by Pulse oximetry Provider Name and Address Organization Details Last Updated DateTime 4 167.64 cm 46.8 kg/m2 095447. 79 g 97.8 [degF] 98 /min 99 % 99 % Renee Arreaga RN [facility] [employer] 4 16:21:12 Date Recorded Body height Body mass index (BMI) Body weight Body temperature Heart rate Oxygen saturation Oxygen saturation in Arterial blood by Pulse oximetry Systolic blood pressure Diastolic blood pressure Provider Name and Address Organization Details Last Updated DateTime 4 167.64 cm 42.3 kg/m2 037712. 2 g 97.8 [degF] 96 /min 98 % 98 % 132 mm[Hg] 86 mm[Hg] Renee Arreaga RN [facility] [employer] 4 17:01:31 Social History Question Answer Notes LastModified by Organizat ion Details LastModified Time Tobacco Smoking Status Never Smoker Melissa ambrocio, [employer] [facility] [employer] 08/24/2023 16:36:42 Do You Have An Advance Directive? No [id number] Information not available 01/13/2023 Do You Wear A Helmet When Biking? Yes Information not available 08/24/2023 What Is Your Level Of Caffeine Consumption? Occasional [id number] Information not available 01/13/2023 In The 14 Days Before Symptom Onset, Have You Had Close Contact With A Laboratory-confir med COVID-19 While That Case Was Ill? No Information not available 08/24/2023 In The 14 Days Before Symptom Onset, Have You Had Close Contact With A Person Who Is Under Investigation For COVID-19 While That Person Was Ill? No Information not available 08/24/2023 What Type Of Diet Are You Following? REGULAR [id number] Information not available 01/13/2023 What Is The Highest Grade Or Level Of School You Have Completed Or The Highest Degree You Have Received? [id number] Information not available 08/24/2023 Have There Been Any Changes To Your Family Or Social Situation? No Information no t available 08/24/2023 What Is The Fluoride Status Of Your Home? Fluoridated Information not available 08/24/2023 Are There Any Guns Present In Your Home? No Information not available 08/24/2023 Do You Use Insect Repellent Routinely? Yes Information not available 08/24/2023 Where [facility] You Live? [facility] Information not available 08/24/2023 Do You Have A Medical Power Of Box Car Bracer? No Information not available 08/24/2023 What Was The Date Of Your Most Recent Tobacco Screening? 03/03/2022 Information not available 08/24/2023 Do You Have Any Pets? Yes Information not available 08/24/2023 What Is Your Relationship Status? [id number] Information not available 01/13/2023 Do You Use Your Seat Belt Or Car Seat Routinely? Yes Information not available 08/24/2023 Do You Have Smoke And Carbon Monoxide Detectors In Your Home? Yes Information not available 08/24/2023 Are You Passively Exposed To Smoke? No Information no t available 08/24/2023 Are There Any Smokers In Your House? No Information not available 08/24/2023 Do You Participate In Social Media? Yes Information not available 08/24/2023 Do You Use Sunscreen Routinely? Yes Information not available 08/24/2023 Has Tobacco Cessation Counseling Been Provided? No Information not available 08/24/2023 Have You Recently Traveled Abroad? No Information not available 08/24/2023 Have You Used IV Drugs? No Information not available 08/24/2023 Are You Currently In School? No Information not available 08/24/2023 Do You Have Any Dietary Restrictions? No Information not available 08/24/2023 Sex: Female Functional Status Question Answer Note LastModified by Organizat ion Details LastModified Time Do you use any illicit or recreational drugs? Yes weed Information not available 08/24/2023 Do you or have you ever used any other forms of tobacco or nicotine? No Information not available 08/24/2023 What is your level of alcohol consumption? 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 None [id number] Information not available 01/13/2023 Mental Status Question Answer Note LastModified by Organization D etails LastModified Time Do you feel stressed (tense, restless, nervous, or anxious, or unable to sleep at night)? [id number] Information not available 08/24/2023 Family History Relationship Description Onset Age of this Age Resolved Age Notes LastModified by Organization Details LastModified Time Mother Lupus erythematosu s [id number] Not available 16:57:07 Mother Cerebrovascu lar accident Not available 08/14/2024 16:57:07 Mother Arthritis [id number] Not wes ilable 08/14/2024 16:57:07 Mother Hypertensive disorder Not available 2022 11:54:20 Mother Osteoporosis [email or web address] Not available 08/14/2024 16:57:07 Mother Blood coagulation disorder [email or web address] Not available 16:57:07 Father Varicose veins of lower extremity [email or web address] Not available 16:57:07 Father Malignant neoplasm of lung [email or web address] Not available 16:57:07 Father Family history of malignant neoplasm [email or web address] Not available 16:57:07 Unspecified Relation Diabetes mellitus GRANDM A AND UNCLE Not available 05/17/2023 11:53:46 Unspecified Relation Hypertensive disorder GRANDP A Not available 05/17/2023 11:54:20 Unspecified Relation Heart disease GRANDP A Not available 05/17/2023 11:54:34 Sister Family history of malignant neoplasm [email or web address] Not available 16:57:07 Medical History Condition Response ARTHRITIS Y HEADACHES/MIGRAINES Y OBESITY Y ANXIETY DISORDER Y DIZZINESS Y ALLERGIES/HAYFEVER Y DEPRESSION (INCLUDING POST ) Y HYPERTENSION Y RHEUMATOID ARTHRITIS Y Gynecological HistoryNo gynecological history recorded. Obstetrics History GPAL:G 0 P 0 0 0 0 Immunizations Vaccine Type Date Status Note Provider Nam e and Address Organization Details Recorded Time COVID-19, mRNA, LNP-S, PF, 30 mcg/0.3 mL dose 1 completed Not Available [facility] 01/13/2023 13:38:22 Influenza, split virus, quadrivalent, preservative 0 completed Not Available [facility] 01/13/2023 13:38:23 Influenza, split virus, quadrivalent, PF 3 completed Not Available [facility] 01/13/2023 13:38:23 Past Encounters Encounter ID Performer Location Encounter Start Date Encounter Closed Date Diagnosis/Indication Diagnosis SNOMED-CT Code Diagnosis ICD10 Code Diagnosis Note [id number] Kamron Mckeon [place] [place] [facility] [address] [facility] [address] [place] [address] 03/03/2022 00:00:00 03/13/2022 10:55:28 [id number] Kamron Mckeon MD [facility] [place] [facility] [address] [facility] [address] [place] [address] 04/15/2022 00:00:00 04/15/2022 12:06:49 [id number] Kamron Mckeon MD [facility] Primary Care Gilda t[place] [address] [facility] [address] [place] [address] 08/19/2022 00:00:00 08/19/2022 17:25:17 [id number] Kamron Mckeon MD [facility] Primary Care [place] [address] [facility] [address] [place] [address] 11/19/2022 00:00:00 12/09/2022 14:46:02 [id number] Kamron Mckeon MD [facility] Primary Care [place]ilda t[place] [address] [facility] [address] [place] [address] 12/29/2022 00:00:00 01/10/2023 18:34:06 [id number] Kamron Mckeon MD [facility] Primary Care Chito grupo [address] [facility] [address] [place] [address] 03/16/2023 08:02:06 03/16/2023 09:39:14 Ingrowing nail of toe of left foot 1708669724 3329430 L60.0 warm water soakscepha lexin 500 mg bid x 7 dayspodiat ry referral Urge incon tinence of urine 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 N39.41 Onychomyco sis of toenails 782114606 B35.1 Z79.899 check lfts, if normal, will do course of terbinafin e [id number] Lauro Medellin DPM [facility] Podiatry Joaquín Louis [address] [place] [address] 05/17/2023 11:16:16 05/19/2023 11:53:57 Ingrowing nail of toe of left foot 4201446942 4522558 L60.0 Resolve with antibiotic s from PCPslant back procedure on both corner edges to prevent recurrence will follow-up as needed Onychomyco sis of toenails 826094014 B35.1 reviewed treatment options- oral medication , topicals, surgical remediespa tient elects to undergo total nail avulsion to remove the toenail and allow regrowth with use of topical antifungal medication .patient will return for total nail avulsion [id number] Kamron Mckeon MD [facility] Primary [facility] [place]ilda t[place] [address] [facility] [address] [place] [address] 06/23/2023 11:09:21 06/23/2023 11:58:25 Weight gain 1770907 R63.5 will try mounjaro, if not covered, will consider wegovy vs out of pocket compounded [facility] Renewal of prescription 681079435 Z76.0 Hypercalcemia 18650179 E 83.52 Abdominal pain 04319457 R10.9 Persistent abd pain, nausea, weight gain and urinary symptomsco ncern for ulcer vs masscheck CT abd/pelvis reviewed s/s that warrant urgent/monica rgent eval in meantime Abscess 527399714 L02.91 Anxiety 05098047 F41.9 not in good controlsam ple given of rexulti 0.5 mg daily x 1 week then increase to 1 mg dailyf/u in 4 weeks or sooner if needed [id number] Lauro Medellin DPM [facility] Podiatry [place] [address] [address] 08/10/2023 11:15:40 08/10/2023 12:31:50 Onychomycosis of toenails 961852139 B35.1 left great toenail avulsion performed without incidentWo und care and dressings changes reviewed with the patientkee p the area clean and dry until healedWoun d care daily until healedSign s and symptoms of infection reviewed with the patient if present seek medical attention immediatel yFollow-up in 10 days [id number] Lauro Medellin DPM [facility] [place] [address] [place] [address] 08/24/2023 16:36:01 08/24/2023 17:15:44 Onychomycosis of toenails 698634263 B35.1 left great toenail avulsion Healedmay discontinu e wound careRx ketoconazo le, apply dailyFollo w-up in 4 months [id number] Kamron Mckeon MD [facility] Primary Care [facility] [address] [facility] [address] [place] [address] 12/16/2023 16:31:00 12/16/2023 17:06:18 [id number] Lauro Medellin DPM [facility] Podiatry [place] [address] [facility] [address] [place] [address] 12/21/2023 16:46:52 12/28/2023 14:43:32 Onychomycosis of toenails 295166303 B35.1 left great toenail avulsion 40% regrownedu cation on collagen powder and biotin to help nail/ hair growthRx ketoconazo le, apply dailyFollo w-up in 6months [id number] Kamron Mckeon MD [facility] Primary Care [address] [place] [address] 12/28/2023 16:10:19 12/28/2023 17:09:17 [id number] Kamron Mckeon MD [facility] Primary Care [address] [place] [address] 02/23/2024 16:13:05 02/23/2024 16:38:55 Body mass index 40+ - severely obese 888162324 Z68.42 wegovy 0.5 mg sc qweek, plan to titrate up q4 weeks as toleratedr eviewed potential med s/ef/u in 6 months or sooner if needed Dietary ne kristian surveillance 523289149 Z71.3 [id number] KRYSTIN Ruiz [facility] Primary Care [facility] [address] [facility] [address] [place] [address] 06/29/2024 16:20:00 06/29/2024 17:11:02 [id number] KRYSTIN King [facility] Primary Care [address] [place] [address] 08/14/2024 16:55:15 08/15/2024 10:32:10 Anxiety 32060441 F41.9 ANDRE-7 ().[place] HORSER UP verified.U DS collectedP atient verbalizes understand ing of controlled substance policy. Dietary ma nagkarlos surveillance 846008992 Z71.3 Weight: 262 lbsBMI: 42.3 Long-term drug therapy 357243046 Z79.899 Hypertensive disorder 38 235741 I10 132/86. Goal 140/90.Nayan l refill meds as listed below.Disc ussed DASH diet and routine exercise. [id number] Mis Santos, GILBERTO-Brittany [facility] [place] [facility] [address] [facility] [address] [place] [address] 02/05/2025 16:05:38 02/05/2025 16:20:16 Health Concerns Section Related Observation LastModified by Organization Detai ls LastModified Time None Recorded Concern Status LastModified by Organization Details LastModified Time None Recorded Advance Directives Directive N: Payers Encounter Date Sequence Insurance Name Policy Number Policy Elliott Covered Member ID Elliott Member ID Guarantor Name 12/28/2023 1 [facility] [id number] Zeny M Greenfield [id number] Zeny M Greenfield 02/23/[address] [place] [address] [id number] Zeny M Greenfield [id number] Zeny M Greenfield 06/29/2024 1 [facility] [id number] Zeny M Greenfield [id number] Zeny M Greenfield 08/14/2024 1 [facility] [id number] Zeny M Greenfield [id number] Zeny M Greenfield 02/05/[address] [place] [address] [id number] Zeny M Greenfield [id number] Zeny M Greenfield Notes Date Note Type Note Provider Name and Address Organization Details Recorded Time 02/23/2024 text/html would like to tr y medication for weight loss. No chest pain, no sob. DARLENE Rosales [place] [employer] 05/08/2024 15:50:57 08/14/2024 text/html Patient is a 53 year old female that presents to the office for follow up on controlled medications. Patient reports she is doing well on current medications and has no concerns at this time. Patient denies chest pain and shortness of breath, nausea vomiting and diarrhea. Patient denies SI/HI. Mis Santos, GILBERTO-C [address] [facility], [facility] [address], [place], [address], [place] [facility] [place] [facility] 08/16/2024 23:26:36 OBGyn Episode No OBEpisode recorded.
--- OUTSIDE RECORDS SUMMARY | 2025-04-12 10:11 | XMS_ITS | Data Portability ---
[facility] Organization [facility] Address [address] [place] [address] Care Team Providers Care Travelift Operator Name Role Phone YAZDENNIS URBAN Primary Care Provider Unavailab le Assessment No assessment recorded. Plan of Treatment Reminders Order Date Submit Date Provider Last Modified By Organization Details Last Modified Time Details Appointments None recorded. Lab CBC w/ auto diff 025 025 [facility]AL [facility], [address], [place], [address], 5 15:39:25 CMP, serum or plasma 025 025 [facility]AL [facility], [address], [place], [address], 5 15:39:25 vitamin B12, serum 025 025 [facility], [address], [place], [address], 5 15:39:25 lipid panel, serum 025 025 [facility], [address], [place], [address], 5 15:39:24 HbA1c (hemoglob in A1c), blood 025 025 [facility]AL [facility], [address], [place], [address], 15:39:26 TSH + free T4, serum 025 [facility], [address], [place], [address], 5 15:39:26 insulin, serum 025 [facility], [address], [place], [address], 5 15:39:24 Referral None recorded. Procedures None recorded. Surgeries None recorded. Imaging XR, chest, [address] view [address] (Imaging), [address] [place] [address] [address], [place], [address], 15:44:11 Medication Orders None recorded. Patient TargetsNo targets recorded. Patient Instructions Encounter Date Encounter Id Patient Instructions Last Modified By Organization Details Last Modified Time 04/11/2025 [id number] A healthy lifestyle: care instructions [email or web address] Not available 04/11/2025 15:39:13 Reason for Referral None Reported. Problems Name Problem SNOMED Code Status Onset Date Resolution Date Notes Provider Name and Address Organization Details Recorded Time Body mass index 30+ - obesity 099412371 Active 2024 DANIELLA Wright Attn: Amol g,[address] [facility], [place], [address], [place] - [place] 5 23:01:27 Obese class II 0527061226470 05 Active 2024 DANIELLA Wright Attn: Accountin g,[address] [facility], [place], [address], [place] 5 23:01:28 Positive screening for depression on PHQ-9 (Patient Health Questionnai re 9) 6164346663444 00 Active 2024 DANIELLA Wright Attn: Amol g,[address] [facility], [place], [address], [place] 23:01:50 Long-term current use of drug therapy 980305907 Active 2024 DANIELLA Wright Attn: Amol baptiste,[address] [place], [address], [place] 23:02:06 Tetanus toxoid vaccination given 3817741062022 01 Active 2024 DANIELLA Wright Attn: Amol baptiste,[address] [facility], [place], [address], [place] 5 23:02:11 Benign hypertensio n 15852703 Active 2024 DANIELLA Wright Attn: Amol baptiste,[address] [place], [address], [facility] - [facility] 23:04:29 Migraine 72557923 Active 2024 DANIELLA Wright Attn: Amol baptiste,[address] [place], [address], [facility] - [facility] 23:04:31 Recurrent depression 726905667 Active 2024 DANIELLA Wright Attn: Amol baptiste,[address] [place], [address], [facility] - [facility] 23:04:32 Problem Notes None recorded. Procedures Surgical History Date Name Laterality Status Provider Name and Address Organization Details Recorded Time appendectomy completed Marika Winkler MA [facility] 04/11/2025 15:53:38 Hernia Repair completed Marika Winkler MA [facility] 04/11/2025 15:53:44 Joint Replacement completed Marika Winkler MA [facility] 04/11/2025 15:54:00 Total hysterectomy completed Marika Winkler MA [facility] 04/11/2025 15:54:04 Imaging Results None recorded. Procedure Notes None recorded. Medical Equipment None Reported. Allergies Allergen ID Allergen Name Allergen Category Reaction Reaction Severity Criticality Documentation Date Start Date Code Code System Note Provider Name and Address Organization Details Recorded Time Ambien medicatio n itching Not available Not available 04/11/2025 95426 5 RxNorm MIKE Dunlap, [facility] 14:54:42 832225 zolpidem medicatio n itching Not available Not available 04/11/2025 64177 RxMIKE Morales, [facility] 14:54:53 Medications Name Sig Start Date Stop Date Status Note LastModified by Organization Details LastModified Time promethazin e-DM 6.25 mg-15 mg/5 mL oral syrup TAKE 10 ML BY MOUTH AT BEDTIME NEEDED 04/11 completed Not Available Not Available Not Available venlafaxine ER 75 mg capsule,ext ended release 24 hr TAKE 1 CAPSULE BY MOUTH ONCE DAILY WITH 150MG CAPSULE active Not Available Not Available No t Available doxycycline hyclate 100 mg capsule TAKE 1 CAPSULE BY MOUTH TWICE DAILY FOR 10 DAYS 04/11 completed Not Available Not Available Not Available hydrocodone 5 mg-acetamin ophen 325 mg tablet TAKE 1 TABLET BY MOUTH EVERY 4 HOURS NEEDED FOR PAIN 04/11 completed Not Available Not Available Not Available prednisone 20 mg tablet TAKE 2 TABLETS BY MOUTH DAILY FOR 5 DAYS 04/11 completed Not Available Not Available Not Available venlafaxine ER 150 mg capsule,ext ended release 24 hr TAKE 1 CAPSULE BY MOUTH ONCE DAILY WITH 75 MG DOSAGE active Not Available Not Available No t Available cephalexin 500 mg capsule TAKE 1 CAPSULE BY MOUTH THREE TIMES DAILY FOR 7 DAYS 04/11 completed Not Available Not Available Not Available diclofenac potassium 50 mg tablet TAKE 1 TABLET BY MOUTH TWICE DAILY NEEDED FOR PAIN active Not Available Not Available No t Available gabapentin 300 mg capsule TAKE 1 CAPSULE BY MOUTH TWICE DAILY active Not Available Not Available No t Available lorazepam 1 mg tablet TAKE 1 TABLET BY MOUTH THREE TIMES DAILY NEEDED . APPOINTME NT REQUIRED FOR FUTURE REFILLS active Not Available Not Available No t Available hydroxychlo roquine 200 mg tablet TAKE 1 TABLET BY MOUTH TWICE DAILY active Not Available Not Available No t Available lisinopril 10 mg-hydrochl orothiazide 12.5 mg tablet TAKE 1 TABLET BY MOUTH ONCE DAILY active Not Available Not Available No t Available ondansetron 4 mg disintegrat ing tablet DISSOLVE 1 TABLET IN MOUTH EVERY 8 HOURS NEEDED FOR NAUSEA FOR VOMITING active Not Available Not Available No t Available biotin active otc Not Available Not Availa ble Not Available Vitamin D active otc Not Available Not Kenisha ilable Not Available Zyrtec active otc Not Available Not Availa ble Not Available Advil Allergy Sinus active otc Not Available Not Available Not Available fesoterodin e ER 8 mg tablet,exte nded release 24 hr TAKE 1 BY MOUTH ONCE DAILY active Not Available Not Available No t Available Flonase Allergy Relief active Not Available Not Available Not Available Rexulti 1 mg tablet TAKE 1 TABLET BY MOUTH ONCE DAILY active Not Available Not Available No t Available adalimumab 40 mg/0.4 mL subcutaneou s pen kit Inject 0.4 mL every 2 weeks by subcutane ous route. active Not Available Not Available No t Available Aimovig Autoinjecto r 140 mg/mL subcutaneou s auto-inject or Inject by subcutane ous route. active Not Available Not Available No t Available Ubrelvy 100 mg tablet TAKE 1 TABLET BY MOUTH ONCE NEEDED FOR MIGRAINE MAY REPEAT DOSE ONCE IN 2 HOURS IF NO RELIEF DO NOT EXCEED 2 DOSES IN 24 HOURS active Not Available Not Available No t Available Vitals Date Recorded Systolic blood pressure Diastolic blood pressure Provider Name and Address Organization Details Last Updated DateTime 04/11/2025 130 mm[Hg] 80 mm[Hg] DANIELLA Wright Attn: Accounting[address] [place], [address], [facility] 04/11/2025 15:39:35 Date Recorded Body weight Body mass index (BMI) Body height Oxygen saturation Oxygen saturation in Arterial blood by Pulse oximetry Heart rate Respiratory rate Systolic blood pressure Diastolic blood pressure Provider Name and Address Organization Details Last Updated DateTime 5 120275. 21 g 37.9 kg/m2 167.64 cm 97 % 97 % 85 /min 18 /min 140 mm[Hg] 82 mm[Hg] Marika Winkler MA [facility] 15:01:21 Social History Question Answer Notes LastModified by Organizat ion Details LastModified Time Tobacco Smoking Status Never Smoker Marika Winkler MA null, [facility] 04/11/2025 15:53:31 Do You Have An Advance Directive? No Information not available 04/11/2025 Are You Blind Or Do You Have Difficulty Seeing? Yes Glasses Information not available 04/11/2025 What Is Your Level Of Caffeine Consumption? Occasional 1-2x A Day Information not available 04/11/2025 In The 14 Days Before Symptom Onset, Have You Had Close Contact With A Laboratory-confir med COVID-19 While That Case Was Ill? No Information not available 04/11/2025 In The 14 Days Before Symptom Onset, Have You Had Close Contact With A Person Who Is Under Investigation For COVID-19 While That Person Was Ill? No Information not available 04/11/2025 Have You Been To An Area Known To Be High Risk For COVID-19? No Information not available 04/11/2025 Are You Deaf Or Do You Have Serious Difficulty Hearing? No Information not available 04/11/2025 What Type Of Diet Are You Following? REGULAR Information not available 04/11/2025 Are There Any Guns Present In Your Home? No Information not available 04/11/2025 What Was The Date Of Your Most Recent Tobacco Screening? 04/11/2025 Information not available 04/11/2025 Do You Use Your Seat Belt Or Car Seat Routinely? Yes Information not available 04/11/2025 Do You Have Smoke And Carbon Monoxide Detectors In Your Home? Yes Information not available 04/11/2025 Do You Use Sunscreen Routinely? Yes Information not available 04/11/2025 Has Tobacco Cessation Counseling Been Provided? No Information not available 04/11/2025 Sex: Female Functional Status Question Answer Note LastModified by Organizat ion Details LastModified Time Do you use any illicit or recreational drugs? No Information not available 04/11/2025 Do you or have you ever used any other forms of tobacco or nicotine? No Information not available 04/11/2025 What is your level of alcohol consumption? Occasional Information not available 04/11/2025 Are you currently employed? Yes Information not available 04/11/2025 Are you able to care for yourself? Yes Information n ot available 04/11/2025 What is your exercise level? Occasional Information not available 04/11/2025 Mental Status None recorded. Family History Relationship Description Onset Age of this Age Resolved Age Notes LastModified by Organization Details LastModified Time Mother Alcoholism [email or web address] Not availa ble 04/11/2025 15:52:46 Mother Asthma [email or web address] Not available 04/11/2025 15:52:50 Mother Depressive disorder tcarterma Not available 2024 15:52:55 Mother Hypertensive disorder tcarterma Not available 2024 15:53:02 Mother Migraine [email or web address] Not availabl e 04/11/2025 15:53:10 Father Alcoholism tcarterma Not availa ble 04/11/2025 15:52:46 Medical History Condition Response Coronary Artery Disease N Other N High Blood Pressure Y Atrial Fibrillation N Thyroid Problems N Kidney or Bladder Problems N Depression Y COPD N Blood Clots Y GI Problems N Have you had a mammogram in the last yea r? N Skin Problems N Anemia N Heart Attack ([place]) N Anxiety Disorder Y Diabetes N Muscle, Joint, or Bone Problems Y Seizures/Epilepsy N Have you had a colonoscopy in the last 1 0 years? N Acid Reflux (GERD) N Cancer N Stroke N Asthma Y Allergies Y Have you had a PSA blood test in the las t year? N High Cholesterol N Hepatitis N Liver Disease Y Headaches Y Osteoporosis N Heart Failure N Gynecological History Statement/Question Response Menses Monthly N Current Control Method Hysterectom y Obstetrics History GPAL:G 3 P 3 0 0 3 Type Value Multiple Births 0 Full Term 3 Induced 0 Spontaneous 0 Premature 0 Living 3 Ectopics 0 Total 3 Immunizations Vaccine Type Date Status Note Provider Nam e and Address Organization Details Recorded Time DTP 3 completed Not Available [facility] 04/11/2025 14:34:19 OPV 3 completed Not Available [facility] 04/11/2025 14:34:19 OPV 3 completed Not Available [facility] 04/11/2025 14:34:19 DTP 3 completed Not Available [facility] 04/11/2025 14:34:19 DTP 3 completed Not Available [facility] 04/11/2025 14:34:19 M/R 3 completed Not Available [facility] 04/11/2025 14:34:19 OPV 3 completed Not Available [facility] 04/11/2025 14:34:19 DTP 5 completed Not Available [facility] 04/11/2025 14:34:19 OPV 5 completed Not Available [facility] 04/11/2025 14:34:19 DTP 8 completed Not Available [facility] 04/11/2025 14:34:19 OPV 8 completed Not Available [facility] 04/11/2025 14:34:19 mumps 9 completed Not Available [facility] 04/11/2025 14:34:19 MMR 4 completed Not Available [facility] 04/11/2025 14:34:19 Td (adult), 2 Lf tetanus toxoid, preservative free, adsorbed 7 completed Not Available [facility] 04/11/2025 14:34:19 MMR 2 completed Not Available [facility] 04/11/2025 14:34:19 Td (adult), 2 Lf tetanus toxoid, preservative free, adsorbed 7 completed Not Available [facility] 04/11/2025 14:34:19 Influenza, split virus, quadrivalent, PF 3 completed Not Available [facility] 04/11/2025 14:34:19 Tdap 5 completed Not Available [facility] 04/11/2025 14:34:19 Influenza, MDCK, quadrivalent, PF 0 completed Not Available [facility] 04/11/2025 14:34:19 COVID-19, mRNA, LNP-S, PF, 30 mcg/0.3 mL dose 1 completed Not Available [facility] 04/11/2025 14:34:19 COVID-19, mRNA, LNP-S, PF, 30 mcg/0.3 mL dose 1 completed Not Available [facility] 04/11/2025 14:34:19 Influenza, split virus, trivalent, preservative 1 completed Not Available [facility] 04/11/2025 14:34:19 COVID-19, mRNA, LNP-S, PF, 30 mcg/0.3 mL dose 1 completed Not Available [facility] 04/11/2025 14:34:19 Influenza, MDCK, quadrivalent, PF 2 completed Not Available [facility] 04/11/2025 14:34:19 Influenza, MDCK, quadrivalent, PF 3 completed Not Available [facility] 04/11/2025 14:34:19 Influenza, split virus, trivalent, PF 4 completed Not Available [facility] 04/11/2025 14:34:19 COVID-19, mRNA, LNP-S, PF, carleen-sucrose, 30 mcg/0.3 mL 4 completed Not Available [facility] 04/11/2025 14:34:19 Tdap 5 completed DANIELLA Wright Attn: Accounting[address] [place], [address], [facility] 04/11/2025 15:39:13 Past Encounters Encounter ID Performer Location Encounter Start Date Encounter Closed Date Diagnosis/Indication Diagnosis SNOMED-CT Code Diagnosis ICD10 Code Diagnosis Note [id number] Derick Lester MD [facility] [place] [address] [place] [address] 04/11/2025 14:32:20 04/11/2025 15:44:11 Tetanus toxoid vaccination given 9807585570 62144 Z23 Tdap given today Long-term current use of drug therapy 530287474 Z79.899 cmp, cbc and b12, folate labs are due Diabetes m ellitus screening 548867041 Z13.1 A1c screening due Cholesterol screening 27 0574973 Z13.220 Fasting lipids due Body mass index 30+ - obesity 633109935 Z68.37 Continue diet and exercise modificati ons and trial of Zepbound 2.5 mg weekly Obese class II 311585461 1 92253 E66.812 As above Plain X-ra y of chest abnormal 9269432601 R93.89 Patient gives a report that she had an abnormal chest x-ray that has been followed up a couple of years in a row she isn't sure if it is scarring or a nodule and we do not have access to her old records at this time but we will provide an order for a repeat chest x-ray. If this is abnormal we will be sending her for a CT scan Positive s creening for depression on PHQ-9 (Patient Health Questionnaire 9) 1064725667 79863 Z13.31 Patient is positive on screening today. She is on venlafaxin e 225 mg daily for her anxiety management and Rexulti for her depression management . She does overall feel stable though she is not in remission. Rheumatoid arthritis 698 00226 M06.9 Patient is on Plaquenil and adalimumab injectable . Rheumatoid is stable but still with symptom breakthrou gh Generalize d anxiety disorder 98422473 F41.1 Anxiety is greater than depression . Patient currently takes venlafaxin e ER 225 mg daily. She does feel stable she also takes lorazepam 1 mg at bedtime Recurrent depression 191 032721 F33.9 For depression patient is on Rexulti 1 mg daily. Patient is stable Migraine 65683723 G43.90 9 Aimovig monthly injection and Ubrelvy for breakthrou gh migraine Benign hypertension 1072 5009 I10 Lisinopril 10 mg/HCTZ 12.5 mg daily for blood pressure management . Health Concerns Section Related Observation LastModified by Organization Detai ls LastModified Time None Recorded Concern Status LastModified by Organization Details LastModified Time None Recorded Advance Directives Directive N: Payers Encounter Date Sequence Insurance Name Policy Number Policy Elliott Covered Member ID Elliott Member ID Guarantor Name 04/11/2025 1 [facility] [id number] Zeny Johnson [id number] Zeny Johnson Notes Date Note Type Note Provider Name and Address Organization Details Recorded Time 04/11/2025 text/html Rheumatoid arthritis-patient is on Plaquenil and biologic therapy followed by Rheumatology. Always in chronic pain. Symptoms not entirely controlled. Generalized anxiety disorder-patient takes venlafaxine ER 225 mg daily and lorazepam 1 mg p.o. q.h.s.. Anxiety is the biggest symptom as far as her mental health is concerned. Major depressive disorder that is recurrent but stable-on Rexulti 1 mg daily which was managed by her past PCP. Migraine therapy-on monthly Aimovig injection and Ubrelvy for breakthrough, stable History of an abnormal chest x-ray that she is not sure about the details on but she thinks she is due for another chest x-ray. DANIELLA Wright Attn: Accounting[address] [place], [address], [place] [facility] 04/11/2025 23:11:40 OBGyn Episode No OBEpisode recorded.
--- OUTSIDE RECORDS SUMMARY | 2025-04-12 10:11 | XMS_ITS | Referral Summary ---
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 Name Role Phone Patricia Mckeon MD Primary Care Provider + Javi Wells MD Unavailable Encounters Date Type Department Care Team Description 02/09/2025 Telephone [facility] General Neurology [address] 6th [address] [place] [phone] Shona Elam PA Ubrelbertha BREWER 02/09/2025 11:30 AM CDT Telemedicine [facility] General Neurology [address] [place] [phone] Shona Elam PA Intractable chronic migraine without aura and without status migrainosus 01/31/2025 Results Follow-Up [facility] [address] [place] [phone] Derick Rosario PA Erythrocyte sedimentation rate, CRP (acute phase), Comprehensive metabolic panel, CBC with auto differential 01/30/2025 3:30 PM CDT Office Visit [address] [phone] Derick Rosario PA Rheumatoid arthritis of multiple sites with negative rheumatoid factor (HCC) (Primary Dx); Fibromyalgia; Bilateral hip pain; Encounter for long-term (current) use of medications 01/26/2025 Orders Only [facility] [address] [place] [phone] Derick Rosario PA 01/26/2025 Telephone [facility] [address] [place] [phone] Lloyd Mancilla change to biosim from Last 3 Months Allergies Active Allergy Reactions Criticality Noted Date Comments Zolpidem Other (See comments),Anxiety,Hives,Itching High 12/17/2022 Cant sleep Medications venlafaxine XR (EFFEXOR-XR) 150 mg 24 hr capsule daily. Act ronald acetaminophen-asp irin-caffeine (EXCEDRIN MIGRAINE) 250-250-65 mg per tablet as needed Active lisinopril-hydroC HLOROthiazide (PRINZIDE,ZESTORE TIC) 10-12.5 mg per tabletIndications :hypertension Take 1 tablet by mouth Active LORazepam (ATIVAN) 1 mg tablet Take 1 tablet (1 mg total) by mouth every 6 (six) hours as needed for anxiety Active cetirizine (ZyrTEC) 10 mg tablet Take 1 tablet (10 mg total) by mouth as needed for allergies Active venlafaxine XR (EFFEXOR-XR) 75 mg 24 hr capsule Take 1 capsule (75 mg total) by mouth daily 022 Active brexpiprazole (Rexulti) 1 mg tablet Take by mouth daily Active esomeprazole DR (NexIUM) 40 mg capsule Take 1 capsule every day by oral route. 013 Active gabapentin (NEURONTIN) 300 mg capsuleIndication s:Neuropathic Pain Take 1 capsule (300 mg total) by mouth 2 (two) times a day 60 capsule 3 024 Active Additional Information Patient taking differently:300 mg oralNightly, Indications: Neuropathic Pain, Reported on 02/09/2025 SEMAGLUTIDE SUBQ Inject under the skin Active ondansetron ODT (ZOFRAN-ODT) 4 mg disintegrating tabletIndications :Intractable chronic migraine without aura and without status migrainosus Take 1 tablet (4 mg total) by mouth every 8 (eight) hours as needed for nausea or vomiting 20 tablet 1 025 Active ubrogepant (UBRELVY) 100 mg tabletIndications :Intractable chronic migraine without aura and without status migrainosus Take 1 tablet (100 mg total) by mouth once as needed for migraine May repeat dose once in 2 hours if no relief. Do not exceed 2 doses in 24 hours. 10 tablet 11 025 2025 Active erenumab-aooe (Aimovig Autoinjector) 140 mg/mL auto-injectorIndi cations:Intractab le chronic migraine without aura and without status migrainosus Inject 1 mL (140 mg total) under the skin every 30 (thirty) days 3 mL 3 025 Active diclofenac (CATAFLAM) 50 mg tablet Take 1 tablet by mouth twice daily as needed for pain 60 tablet 025 Active adalimumab-ryvk 40 mg/0.4 mL auto-injector, kit INJECT 40 MG (0.4 ML) UNDER THE SKIN EVERY 14 DAYS 6 each 025 Active hydroxychloroquin e (PLAQUENIL) 200 mg tablet Take 1 tablet by mouth twice daily 60 tablet 1 025 Active hydroxychloroquin e (PLAQUENIL) 200 mg tablet Take 1 tablet (200 mg total) by mouth 2 (two) times a day 60 tablet 3 024 2024 Discontinued adalimumab-ryvk 40 mg/0.4 mL auto-injector, kit Inject 40 mg under the skin every 14 (fourteen) days 2024 Discontinued diclofenac (CATAFLAM) 50 mg tablet Take 1 tablet by mouth twice daily as needed for pain 60 tablet 025 2024 Discontinued Active Problems Problem Noted Date Diagnosed Date Benign essential hypertension 03/03/2024 Biliary sludge 03/03/2024 Bunion 03/03/2024 Constipation 03/03/2024 Depressive disorder 03/03/2024 Dysfunction of eustachian tube 03/03/2024 Migraine 03/03/2024 Rib pain 03/03/2024 Shoulder pain 03/03/2024 Skin lesion 03/03/2024 Osteoarthritis 03/03/2024 Temporomandibular joint disorder 03/03/2024 Upper respiratory infection 03/03/2024 Dysuria 12/15/2023 COVID-19 10/21/2023 Cervical lymphadenopathy 09/19/2023 Lung nodule 09/19/2023 Pain in throat 08/11/2023 Sore throat 07/23/2023 Fibromyalgia 07/16/2023 Assessment & Plan (01/30/2025 4:05 PM CDT): Has general tenderness to palpation, which I suspect her fibromyalgia contributes to. Have discussed addition of Cymbalta, although would need to taper off Effexor. She has not discussed this with PCP, which was again discussed at today's appt. Continue gabapentin 300 mg q.p.m.. Could not tolerate morning/midday dose due to drowsiness. Encourage routine exercise. 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 Have discussed addition of Cymbalta, although would need to taper off Effexor. She has not discuss this with PCP, which was again discussed today. Continue gabapentin 300 mg q.p.m.. Could not tolerate morning/midday dose due to drowsiness. Encourage routine exercise. Assessment & Plan (07/31/2024 4:28 PM CDT): Stable. Could not tolerate higher doses of gabapentin. Is currently taking gabapentin 300 mg q.p.m.. Could consider addition of Cymbalta in the future, although will need to taper off Effexor. Is in the process of establishing with new PCP. Assessment & Plan (05/29/2024 2:59 PM CDT): Has described longstanding generalized arthralgias and tenderness to the touch of the skin. Suspect this is contributing to some of her chronic residual pain complaints. Had trialed increasing gabapentin to 300 mg b.i.d. after last visit. Stopped after 1 dose due to excessive drowsiness. She is willing to retrial this. Will increase gabapentin to 300 mg b.i.d., as discussed. Could consider addition of Cymbalta in the future, although would need to taper off Effexor after discussion with PCP. I did discuss this with her today and she had reservations given the high dose of Effexor Assessment & Plan (04/07/2024 2:31 PM CDT): Has described longstanding generalized arthralgias and tenderness to the touch of the skin, robin of the lower extremities. Began 300mg gabapentin qhs after last visit which has helped her sleep and reduced nighttime pain. Still with daytime pain. Will have her increase gabapentin to 300mg BID. If she cannot tolerate the higher daytime dose she was advised to call the office back and I will send in a 100mg dose to try. To follow up in 6 weeks, sooner if needed. Could consider additional Cymbalta in the future, although would need to discuss with PCP about stopping Effexor. 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 Suspect this may be contributing to some of her chronic residual pain complaints. Discussed treatment with gabapentin 300 mg q.h.s., which was amenable to. Discussed potential side effects of the medication, including but not limited to somnolence, dizziness. Encourage routine exercise, including Carlo Chi Could consider additional Cymbalta in the future, although would need to discuss with PCP about stopping Effexor. I did again discuss this with her today. Assessment & Plan (07/16/2023 4:18 PM CDT): Has describes longstanding generalized arthralgias and tenderness to the touch of the skin. Has generalized fibromyalgia tender points. Do suspect this contributing to some of chronic pain. Recommended discussing with PCP about stopping Effexor and trialing duloxetine that may secondarily benefit her general arthralgias/myalgias. Encourage routine exercise, including Carlo Chi. Hypercalcemia 06/23/2023 Weight gain 06/23/2023 Dizziness 05/17/2023 Ingrown toenail of left foot 03/16/2023 Onychomycosis of toenail 03/16/2023 Urge incontinence of urine 03/16/2023 Acute sinusitis 03/01/2023 CERRATO (nonalcoholic steatohepatitis) 07/28/2022 Assessment & Plan (07/28/2022 5:19 PM CDT): Liver ultrasound 06/24/2022 CERRATO with hemangiomas. Status post cholecystectomy Reviewed liver US with her. Recommended diet and exercise. Headache 06/22/2022 Assessment & Plan (06/22/2022 3:15 PM CDT): Has longstanding history of migraines/headaches, she was on several medications per Neurology. Recently, as experience worsened occipital headaches along with neck discomfort. Do suspect these headaches stem from her neck discomfort and I have recommended physical therapy. Also recommended further discussion with Neurology. Do not suspect this is any relation to her Humira, which was a concern of hers. Neck pain 06/22/2022 Assessment & Plan (07/28/2022 5:16 PM CDT): Has been going to physical therapy for previous neck complaints, which has offered benefit Assessment & Plan (06/22/2022 3:15 PM CDT): Refer to PT, as discussed Prediabetes 04/15/2022 Rheumatoid arthritis of [facility] sites with negative rheumatoid factor 05/06/2020 Overview (04/03/2024): X-ray (06/12/2018): Left/right ankle: Negative; left/right foot: 1st MTP OA, as well as plantar calcaneal spurring; SI joint: Moderate sclerotic changes right side with mild left; L spine: Moderate facet OA changes; left hand: Negative; right hand: Mild 2nd DIP OA but otherwise negative; bilateral knees: Mild to moderate medial OA; CXR: Negative; Initial serologies: ast 82, alt 95, aldolase 11.6, Avise negative AVISE 06/22/22: CARLOS neg, dsDNA equivocal by [facility] (not run by [facility] [employer] [facility]), RF IgM 3.9, B2GPI IgM 8.4 US (06/09/2018): 1) Moderate synovial thickening/effusion with grade 1 PD in the wrist that may be vessel. The 3rd MCP had marked synovial thickening with moderate of the 5th on examination which will have to be correlated clinically. 2) Small 4th compartment effusion. US right hand/wrist 01/15/2020: Mild wrist synovial thickening. Moderate 3rd MCP, mild 4th MCP synovial thickening. The DIPs grade 1 power Doppler in the volar region. Moderate 2nd and 3rd PIP synovial thickening. Fourth compartment effusion. The volar 1st IP has grade 1 effusion at spurring. Compared to prior hand ultrasound, there is decreased synovial thickening US Right hand/wrist 06/23/2023: Moderate synovial thickening at the wrist. Moderate 3rd MCP, mild 4th MCP, and moderate/marked 5th MCP synovial thickening. Mild/moderate 2nd PIP and moderate 3rd PIP synovial thickening. Compared to prior, there is increased MCP and wrist synovial thickening. US Right hand/wrist 04/03/24: Mild synovial thickening of the dorsal wrist with grade 1 power Doppler Grade 1 power Doppler of the radial scaphoid joint with grade 1 effusion Moderate synovial thickening of the 3rd MCPJ and 3rd PIPJ Mild synovial thickening of the 4th MCPJ and 2nd PIPJ Mild spurring of the 1st CMC joint Findings are compared to previous exam dated 06/23/23 showing improved power Doppler of the dorsal wrist and effusion of the radial scaphoid joint. Continued / stable thickening of the 3rd and 4th MCPJ and 2nd and 3rd PIPJ with improvement in the 5th MCPJ. Overall improvement in the wrist otherwise unchanged. History of polyarthralgia affecting multiple joints, including the joints of the hands, elbows, knees, and ankles (L>R), as well as the low back. Notes that the joints are more stiff in the morning, which loosened throughout the day. History of OA affecting multiple joints, per patient report, as well. History of malar erythema across her cheeks, mild photosensitivity in the sun, sicca symptoms, acrocyanosis, occasional oral ulcers, occasional pleuritic type chest pains. Denies other symptoms for connective tissue disease. Family history of mother and 2 aunts with SLE. Aunt with RA. Swelling and tenderness present across several MCP and PIP joints on exam. Symptoms suspicious for possible inflammatory arthritis, such as rheumatoid arthritis. No family history for psoriatic arthritis. With that said, patient does complain of DIP involvement, as well as SI joint morning stiffness. More suspicious that these symptoms may be oa, although can consider MRI of the pelvis in the future. Questionable episcleritis in the past? Elevated alt and AST. On arava, hcq, ssz, begin humira Assessment & Plan (01/30/2025 4:04 PM CDT): CDAI 23. Overall, joints have done fairly well since last visit. She does continue to note occasional discomfort, which does include the bilateral hands worsened with cold weather and changes in weather. Otherwise, has discomfort in the hips and lower back, as discussed above, which I suspect is unrelated to her RA. Scattered tenderness significantly inflamed her CDAI. Do suspect that degenerative arthritis and fibromyalgia contributing to some of her residual pain complaints. At present, will continue Plaquenil 200 mg b.i.d., Humira Q 2 weeks subcutaneous injections will continue diclofenac 75 mg b.i.d. while monitoring her LFTs, which have been previously elevated. Routine labs today. Will obtain a repeat right hand/wrist ultrasound to assess her inflammatory arthritis prior to next visit. Follow-up 3 months. Sooner if needed. Continue routine eye exams. Assessment & Plan (10/31/2024 4:32 PM SHRIMP TRAWLER CAPTAIN): CDAI 21. Overall, which recent notes that joints have done fairly well and much improved with diclofenac. Has only mild discomfort in the right hand and back/hips, although does have general tenderness that inflates her cdai. Overall, I do feel that her inflammatory arthritis is fairly well managed at this time with minimal joint swelling. Would continue Plaquenil 200 mg b.i.d. and Humira Q 2 weeks subcutaneous injections. Will continue diclofenac 75 mg b.i.d. while monitoring her LFTs, which has been previously elevated. Routine labs today. Follow-up 3 months. Sooner if needed. Up-to-date on eye exams. Assessment & Plan (07/31/2024 4:27 PM CDT): CDAI time. Mindy was advised to reduced diclofenac to a p.r.n. basis and use sparingly given her elevated LFT history. Unfortunately, she had experienced exacerbation of symptoms in his since resumed diclofenac to 75 mg b.i.d. for the past 2-3 months with significant improvement in symptoms. Joints are doing fairly well at this time with infrequent flares affecting the hands. No prolonged a.m. stiffness. Scattered tender joints without obvious swelling. Do feel that her inflammatory arthritis is fairly well managed. Will continue Plaquenil 200 mg b.i.d. and Humira Q 2 weeks subcutaneous injections. Will need to recheck labs today and if liver enzymes remain elevated, may need to consider discontinuation of diclofenac, which was discussed today. Eye exam is now scheduled for August. Routine labs today. Follow-up 3 months. Sooner if needed. Assessment & Plan (05/29/2024 2:57 PM CDT): CDAI 21. Joints have done fairly well on remain manageable since last visit. Does note some chronic discomfort in the bilateral hands, left ankle, lower back, and hips with noninflammatory symptoms. It is noted that most recent hand ultrasound 04/03/2024 did not display significant evidence suggest uncontrolled inflammation. Suspect that fibromyalgia is contributing to the majority of her residual pain complaints. Tenderness significantly inflamed her CDAI. Will continue diclofenac 75 mg b.i.d. p.r.n., which she is to use sparingly given elevated LFT history. Otherwise, will continue Plaquenil 200 mg b.i.d. and Humira Q 2 weeks subcutaneous injections. Is scheduled for eye exam in June. Routine labs today. Follow-up 2 months. Sooner if needed. Assessment & Plan (04/07/2024 2:36 PM CDT): Continued HCQ and Humira SQ q2 weeks. Notes her joints have been more sore with slight swelling in her hands recently, but notes this occurs when she is overly active as well. Working out with a personal fitness trainer and is down 17lbs since last visit. A repeat right hand/wrist US this week showed reduction in synovial thickening of the MCP joints with reduction of thickening in the wrist - overall slightly improved since 06/2023. Mild amount of synovitis on exam. She was recently on diclofenac for hip pain with noted action in her joint pain however ran out of the script with increasing discomfort. Discussed that this medication can increase LFTs and with her baseline LFTs already elevated would advise taking it only sparingly. As her hand US appears stable/slightly improved and there is minimal findings on exam will not change therapy at this time. Continue Plaquenil and Humira as prescribed with routine labs today. Return in 6-8 weeks. Assessment & Plan (01/19/2024 4:11 PM SHRIMP TRAWLER CAPTAIN): CDAI 21. Zeny was last seen 07/2023, as was again lost to follow-up. Has been off hydroxychloroquine for the past 3-4 weeks due to lack of refills. Has remained on Humira. In the last 2 weeks, has noted a flare with increased generalized joint pain in the hands, elbows, shoulders, and knees. Denies prolonged a.m. stiffness. Does have scattered tender and swollen joints, as above. Will resume Plaquenil 200 mg b.i.d.. Otherwise, will continue Humira q.2 weeks subcutaneous injections. She is due for eye exam, which was discussed today and she is to call to schedule this. Otherwise, will obtain routine labs today. Follow-up 3 months. Sooner if needed. Will schedule her for a right hand/wrist ultrasound prior to next visit to assess for inflammation. Assessment & Plan (07/16/2023 4:17 PM CDT): CDAI 19. Mindy notes be doing fairly well since last visit. Has noted improvement in her overall joint symptoms with mild residual discomfort in the hands. Has known longstanding tenderness to the touch with scattered fibromyalgia tender points on exam. I do have concerns that fibromyalgia may be contributing to her chronic pain. Tenderness does not later CDAI. Overall, do feel that her inflammatory arthritis is fairly well managed. Will maintain on Plaquenil 200 mg b.i.d. and Humira q.2 weeks subcutaneous injections. Continue routine eye exams. Routine labs today. Follow-up 3 months. Sooner if needed. Assessment & Plan (06/17/2023 1:58 PM CDT): CDAI 19.5. Zeny noted benefit with the Kenalog IM injection given at last visit. Does continue to note residual discomfort/stiffness in the hands, lower back, and left TMJ. Denies prolonged a.m. stiffness and symptoms are worsened with use. More tender than swollen joints. Has noted benefit with Humira. Given predominantly tender joints and lack of inflammatory symptoms, would like to re-evaluate with a repeat hand ultrasound to assess for inflammation. Depending on findings, could consider resuming ssz versus alternative biologic. At present, will maintain on Plaquenil 200 mg b.i.d. and Humira q.2 weeks subcutaneous injections. This will allow hydroxychloroquine more time to take effect given length of time that she was off the medication. Continue routine eye exams. Routine labs today. Follow-up 4 weeks. Sooner if needed. Assessment & Plan (04/22/2023 2:04 PM CDT): CDAI 29. Mindy was last seen 07/28/2022, as was lost to follow-up. Has been off hydroxychloroquine for several months in his 1 dose overdue for Humira. Presents due to a flare of symptoms with diffuse pain, which is most notable in the hands, lower back, hips and lesser degree in the elbows and wrists. Scattered tenderness swollen joints, as above. Appears to be in a flare, which is likely secondary to being off her medications. Due to burden of disease, will administer kenalog 100 mg IM injection, in office, today. Patient was advised of the potential side effects of the medication, including but not limited to increased blood sugar, weight gain, avascular necrosis, glaucoma, cataracts, and/or osteoporosis. Will resume Plaquenil at 200 mg b.i.d. with Humira q.2 weeks subcutaneous injections. Up-to-date on eye exams. Routine labs today. Follow-up 4 weeks. Sooner if needed. If symptoms persist, would consider resuming sulfasalazine. Continue to monitor closely for fibromyalgia, which may be contributing to her generalized all-over pain and fatigue Assessment & Plan (07/28/2022 5:15 PM CDT): CDAI 14. Since last visit, has begun Plaquenil 200 mg b.i.d. and tolerated this well. Has noted improvement in joint symptoms. Does have some residual joint discomfort and stiffness in the bilateral hands. Has swelling in the right 3rd MCP and 2nd PIP with scattered tenderness, as above. Symptoms improving and would like to allow Plaquenil more time to take effect. Will continue Plaquenil 200 mg b.i.d. with Humira q.2 weeks subcutaneous injections. Routine labs today. Follow-up 3 months. Sooner if needed. If symptoms worsen, could consider resuming sulfasalazine the future. Continue to monitor closely for FMS contributing to her generalized pain. Assessment & Plan (06/22/2022 3:16 PM CDT): CDAI 23. Did note benefit with the Kenalog IM injection given at last visit. Has begun Humira injections, although did not start on Plaquenil discussed at last visit. Noted improvement in joint complaints receiving the Kenalog IM injection. Over the last couple of days, she has experienced some increased discomfort in the hands. Has had swelling on exam, as above with scattered tenderness generalized FMS tenderpoints. Would like to allow Humira more time to take effect. Will begin Plaquenil 200 mg b.i.d., as previously discussed. Recommend routine eye exams for this. Continue Humira q.2 weeks subcutaneous injections. Routine labs today, including repeat Avise. Follow-up 4 weeks. Sooner if needed. Consider resuming sulfasalazine in the future, if symptoms persist. Do suspect that FMS may be contributing to her chronic pain given generalized FMS tender points on exam. Assessment & Plan (05/22/2022 4:14 PM CDT): CDAI 40. Zeny was last seen 01/05, as was again lost to follow-up. Has been off Plaquenil, sulfasalazine, and Humira since that time. Presents due to a flare with significant increased joint complaints primarily affecting the hands, elbows, shoulders along with increased fatigue. Several swollen joints with significant tenderness, as above. Appears to be in a flare of her inflammatory arthritis. Due to burden of disease, will administer kenalog 100 mg IM injection, in office, today. Patient was advised of the potential side effects of the medication, including but not limited to increased blood sugar, weight gain, avascular necrosis, glaucoma, cataracts, and/or osteoporosis. Will resume Humira q.2 weeks subcutaneous injections and was given samples today. Otherwise, will resume Plaquenil 200 mg b.i.d.. Routine labs today, including QuantiFERON. Will defer Avise panel until next visit as is too late in the day to order. Follow-up 4 weeks. Sooner if needed. Could consider resuming sulfasalazine in the future if symptoms persist. Assessment & Plan (12/26/2020 4:40 PM SHRIMP TRAWLER CAPTAIN): CDAI 11. Patient last seen 07/2020, as was lost to follow-up. She has since restarted on Humira medication, although she did hold her most recent dose due to COVID vaccine. Overall, she notes peripheral joints doing fairly well with minimal complaints. Denies any a.m. stiffness. Minimal swelling on exam. Do feel that her inflammatory arthritis is doing fairly well. She was forced stop leflunomide due to elevated LFTs. Denies any worsened symptoms since stopping the medication. Will resume Humira q.2 weeks subcutaneous injections. Continue Plaquenil 200 mg b.i.d., sulfasalazine 1000 mg b.i.d.. Routine labs today. Follow-up 6 weeks. Sooner if needed. Left carpal tunnel syndrome 04/15/2020 Overview (04/15/2020): Added automatically from request for surgery [id number] Lateral epicondylitis of left elbow 03/25/2020 Assessment & Plan (12/26/2020 4:42 PM [employer]): Primary complaint persistent left lateral epicondylitis, which is improved from recent epicondyle injection per Orthopedics. Epicondyle band worsened symptoms. Discussed possible use of meloxicam 15 mg daily if liver enzymes normalized. Patient was amenable to this. Recheck labs today and depending on findings, would consider meloxicam at that point. Follow-up 6 weeks, although if unable to begin meloxicam, will push appointment back 3 months. Assessment & Plan (03/25/2020 3:16 PM CDT): Recommended epicondyle band. Fu with ortho for possible L lateral epicondyle injection if symptoms persist. Carpal tunnel syndrome, right 01/30/2020 Overview (01/30/2020): Added automatically from request for surgery [id number] Chronic bilateral low back pain 09/25/2019 Overview (09/25/2019): L-spine MRI 09/04/2019: Minimal disc bulge, mild to moderate facet arthropathy, minimal foraminal stenosis bilaterally, mild central canal stenosis at L4-L5, L5-S1. Assessment & Plan (07/16/2023 4:18 PM CDT): L-spine MRI 09/04/2019: Minimal disc bulge, mild to moderate facet arthropathy, minimal foraminal stenosis bilaterally, mild central canal stenosis at L4-L5, L5-S1. Continues to note persistent lower back pain. Has deferred physical therapy due to cost burden in the past. Do not suspect this is related to her underlying RA, which has been previously discussed. Rediscussed PT given orders today. His symptoms persist, recommended follow-up with pain management. Assessment & Plan (06/17/2023 1:58 PM CDT): L-spine MRI 09/04/2019: Minimal disc bulge, mild to moderate facet arthropathy, minimal foraminal stenosis bilaterally, mild central canal stenosis at L4-L5, L5-S1. Continues to note persistent lower back pain. Has deferred physical therapy due to cost burden in the past. Do not suspect this is related to her underlying RA, which has been previously discussed. Assessment & Plan (04/22/2023 2:05 PM CDT): L-spine MRI 09/04/2019: Minimal disc bulge, mild to moderate facet arthropathy, minimal foraminal stenosis bilaterally, mild central canal stenosis at L4-L5, L5-S1. Continues to note persistent lower back pain. Has deferred physical therapy due to cost burden in the past. Do not suspect this is related to her underlying RA. Assessment & Plan (08/06/2020 4:20 PM CDT): L-spine MRI 09/04/2019: Minimal disc bulge, mild to moderate facet arthropathy, minimal foraminal stenosis bilaterally, mild central canal stenosis at L4-L5, L5-S1. Continues to note persistent lower back pain with radicular symptoms down the abeba legs (R>L), which is worsened with standing for long periods of time. Patient saw PM and was referred to PT. Has still not begun this and was again recommended at today's visit Assessment & Plan (05/07/2020 1:47 PM CDT): L-spine MRI 09/04/2019: Minimal disc bulge, mild to moderate facet arthropathy, minimal foraminal stenosis bilaterally, mild central canal stenosis at L4-L5, L5-S1. Continues to note persistent lower back pain with radicular symptoms down the abeba legs (R>L), which is worsened with standing for long periods of time. Patient saw PM and was referred to PT. Has still not begun this and was again recommended. Assessment & Plan (03/25/2020 3:15 PM CDT): L-spine MRI 09/04/2019: Minimal disc bulge, mild to moderate facet arthropathy, minimal foraminal stenosis bilaterally, mild central canal stenosis at L4-L5, L5-S1. Continues to note persistent lower back pain with radicular symptoms down the abeba legs (R>L), which is worsened with standing for long periods of time. Patient saw PM and was referred to PT, although still pending. Assessment & Plan (01/08/2020 4:44 PM [employer]): L-spine MRI 09/04/2019: Minimal disc bulge, mild to moderate facet arthropathy, minimal foraminal stenosis bilaterally, mild central canal stenosis at L4-L5, L5-S1. Continues to note persistent lower back pain with radicular symptoms down the abeba legs (R>L), which is worsened with standing for long periods of time. Patient saw PM and was referred to PT, although has not gone. Assessment & Plan (10/25/2019 11:53 AM [employer]): L-spine MRI 09/04/2019: Minimal disc bulge, mild to moderate facet arthropathy, minimal foraminal stenosis bilaterally, mild central canal stenosis at L4-L5, L5-S1. Continues to note persistent lower back pain with radicular symptoms down the abeba legs (R>L), which is worsened with standing for long periods of time. Patient continues to defer PT due to cost burden. Is scheduling to see pain management, as discussed at last visit. Assessment & Plan (09/25/2019 11:37 AM [employer]): L-spine MRI 09/04/2019: Minimal disc bulge, mild to moderate facet arthropathy, minimal foraminal stenosis bilaterally, mild central canal stenosis at L4-L5, L5-S1. Continues to note persistent lower back pain with radicular symptoms down the abeba legs (R>L). Patient continues to defer PT due to cost burden. Will refer to Paresthesias 09/25/2019 Assessment & Plan (01/08/2020 4:43 PM [employer]): Intermittent which is worse at night affecting all digits in the abeba hands (1-3 digits>remaining). Recent L elbow MRI did display ulnar nerve inflammation. Symptoms suspicious for CTS, as well. Symptoms improved with bracing at night, although do persist. Will obtain emg and refer to Dr. Werner, orthopedics. Assessment & Plan (09/25/2019 11:48 AM [employer]): Intermittent which is worse at night affecting all digits in the abeba hands (1-3 digits>remaining). Recent L elbow MRI did display ulnar nerve inflammation. Symptoms suspicious for CTS, as well. Inflammation in the wrist may be contributing. Discussed bracing at night and will see if it improves with better inflammation control. Consider emg if persists. Numbness and tingling of both lower extremities 04/26/2019 Assessment & Plan (09/25/2019 11:45 AM [employer]): As above, will refer to PM. Defers PT. Assessment & Plan (06/19/2019 1:17 PM CDT): Continues to note some lower back pain with numbness in the bilateral thighs (R>L). Symptoms worsened with walking downhill. Reduced patellar and achilles reflexes bilaterally. Concern for possible spinal stenosis. Did not begin PT or obtain L spine MRI w/o contrast, as discussed at last visit. Patient was having some cost concerns, although anticipates beginning PT and obtaining MRI in the near future. Assessment & Plan (04/26/2019 1:52 PM CDT): Primary reason for today's visit is numbness in the bilateral thighs (R>L). Symptoms worsened with walking downhill. Reduced patellar and achilles reflexes bilaterally. Concern for possible spinal stenosis. Will send to PT and obtain L spine MRI w/o contrast. Medial epicondylitis of left elbow 04/07/2019 Assessment & Plan (04/07/2019 10:45 AM CDT): Discussed use of epicondyle band. If symptoms persist at next visit, would consider orthopedic referral for possible injection given her history of trauma with falling on the arm. Encounter for long-term (current) use of medicat ions 10/13/2018 Assessment & Plan (01/30/2025 4:04 PM CDT): Routine labs today. Quant neg 03/2020 Hep panel neg 05/2018 Assessment & Plan (10/31/2024 4:32 PM [employer]): Routine labs today. Quant neg 03/2020 Hep panel neg 05/2018 Assessment & Plan (05/29/2024 2:57 PM CDT): Routine labs today. Quant neg 03/2020 Hep panel neg 05/2018 Assessment & Plan (04/07/2024 2:30 PM CDT): Routine labs today. LFTs remain elevated - cautioned to take diclofenac sparingly. Quant neg 03/2020 Hep panel neg 05/2018 Assessment & Plan (01/19/2024 4:15 PM [employer]): Routine labs today. Quant neg 03/2020 Hep panel neg 05/2018 Assessment & Plan (07/16/2023 4:17 PM CDT): Routine labs today. Quant neg 03/2020 Hep panel neg 05/2018 Assessment & Plan (06/17/2023 1:58 PM CDT): Routine labs today. Quant neg 03/2020 Hep panel neg 05/2018 Assessment & Plan (07/28/2022 5:15 PM CDT): Routine labs today. Quant neg 03/2020 Hep panel neg 05/2018 Assessment & Plan (06/22/2022 3:13 PM CDT): Routine labs today. Quant neg 03/2020 Hep panel neg 05/2018 Assessment & Plan (05/22/2022 4:15 PM CDT): Routine labs today. Quant neg 03/2020 Hep panel neg 05/2018 Assessment & Plan (12/26/2020 4:42 PM [employer]): Routine labs today. Quant neg 03/2020 Hep panel neg 05/2018 Assessment & Plan (08/06/2020 4:19 PM CDT): Routine labs today. Quant neg 03/2020 Hep panel neg 05/2018 Assessment & Plan (05/07/2020 1:47 PM CDT): Routine labs today. Quant neg 03/2020 Hep panel neg 05/2018 Assessment & Plan (03/25/2020 3:15 PM CDT): Routine labs today. Quant neg 08/2018, recheck today Hep panel neg 05/2018 Assessment & Plan (01/08/2020 3:56 PM [employer]): Routine labs today. Quant neg 08/2018 Hep panel neg 05/2018 Assessment & Plan (10/25/2019 11:53 AM [employer]): Routine labs today. Quant neg 08/2018 Hep panel neg 05/2018 Assessment & Plan (09/25/2019 11:45 AM [employer]): Routine labs today. Quant neg 08/2018 Hep panel neg 05/2018 Assessment & Plan (06/19/2019 1:17 PM CDT): Routine labs today. Quant neg 08/2018 Hep panel neg 05/2018 Assessment & Plan (04/26/2019 1:53 PM CDT): Routine labs today. Quant neg 08/2018 Hep panel neg 05/2018 Assessment & Plan (04/07/2019 10:45 AM CDT): Routine labs today. Quant neg 08/2018 Hep panel neg 05/2018 Assessment & Plan (03/02/2019 11:06 AM CDT): Routine labs today. Quant neg 08/2018 Hep panel neg 05/2018 Assessment & Plan (11/29/2018 4:24 PM [employer]): Routine labs today. Quant neg 08/2018 Hep panel neg 05/2018 Assessment & Plan (10/13/2018 4:51 PM [employer]): Routine labs today. Quant neg 08/2018 Hep panel neg 05/2018 Weight loss counseling, encounter for 05/19/2018 Assessment & Plan (12/17/2018 2:39 PM [employer]): Reviewed calorie restriction based on BMR as previously detailed. Reviewed recommendation/goal of >/= 150 minutes/week moderate-intensity aerobic exercise. Asked to keep detailed food diary for at least 1 week and bring to next visit and/or continue tracking on phone. Assessment & Plan (09/05/2018 9:59 AM CDT): Reviewed calorie restriction based on BMR as previously detailed. Reviewed recommendation/goal of >/= 150 minutes/week moderate-intensity aerobic exercise. Asked to keep detailed food diary for at least 1 week and bring to next visit. Assessment & Plan (08/07/2018 8:33 PM CDT): Reviewed calorie restriction based on BMR as previously detailed. Reviewed recommendation/goal of >/= 150 minutes/week moderate-intensity aerobic exercise. Asked to keep detailed food diary for at least 1 week and bring to next visit. Assessment & Plan (07/03/2018 10:32 AM CDT): Reviewed calorie restriction based on BMR as previously detailed. Reviewed recommendation/goal of >/= 150 minutes/week moderate-intensity aerobic exercise. Assessment & Plan (06/11/2018 12:40 PM CDT): Reviewed calorie restriction based on BMR as previously detailed. Reviewed recommendation/goal of >/= 150 minutes/week moderate-intensity aerobic exercise. Asked to keep detailed food diary for at least 1 week and bring to next visit. Assessment & Plan (05/19/2018 10:50 PM CDT): Calculated basal metabolic rate and estimated total energy expenditure; discussed 500-1000 kcal/day deficit to lose 1-2 lb per week. Asked to keep detailed food diary for at least 1 week and bring to next visit. Metabolic and nutritional disorder 05/19/2018 Assessment & Plan (12/17/2018 2:40 PM [employer]): Continue low-carb (<150 g/day), low-glycemic diet. Assessment & Plan (09/05/2018 9:59 AM CDT): Continue low-carb (<150 g/day), low-glycemic diet. Metformin may be an option, especially with steroid use for RA. Assessment & Plan (08/07/2018 8:33 PM CDT): Continue low-carb (<150 g/day), low-glycemic diet. Assessment & Plan (07/03/2018 10:33 AM CDT): Continue low-carb (<150 g/day), low-glycemic diet. Assessment & Plan (06/11/2018 12:40 PM CDT): Continue low-carb (<150 g/day), low-glycemic diet. Assessment & Plan (05/19/2018 10:51 PM CDT): Labs per surgery. IBS (irritable bowel syndrome) 04/09/2018 Gastroesophageal reflux disease 03/02/2018 Morbid obesity 03/02/2018 Medication overuse headache 08/24/2017 Nonalcoholic fatty liver disease 08/23/2017 Assessment & Plan (06/22/2018 5:14 PM CDT): History of fatty liver, per patient report. Avoiding several medications for this reason. Liver enzymes elevated on recent blood work. Mass of upper extremity 2016 Hernia, incisional 07/09/2016 Right upper quadrant abdominal pain 09/04/2015 Hypertension 09/02/2015 Shortness of breath 01/24/2013 Overview (04/23/2020): TTE 04/03/2020: Left ventricular systolic function normal: 65-70%, mildly increased left ventricular wall thickness. Grade 1 left ventricular diastolic dysfunction. Right ventricular free wall appears to be abnormal. This is probably artifactual, but recommend repeat study with definity/opson contrast or cardiac MRI. Left atrial chamber is mildly enlarged. Mild mitral regurgitation. Mild tricuspid regurgitation Fatigue 01/24/2013 Assessment & Plan (06/17/2023 1:59 PM CDT): Likely multifactorial. Have encourage routine exercise. History of sleep apnea. Class 3 severe obesity due t o excess calories without serious comorbidity with body mass index (BMI) of 45.0 to 49.9 in adult 01/24/2013 Assessment & Plan (12/17/2018 2:43 PM [employer]): Obesity is unchanged. Behavioral treatment: have recommended counseling. Diet interventions: as noted. Regular aerobic exercise program discussed. Pharmacotherapy as ordered. Assessment & Plan (09/05/2018 10:00 AM CDT): Obesity is unchanged. Commended her on the fact that with everything going on she has not gained weight. Diet interventions: low calorie (1000 kCal/d) deficit diet and as noted. Regular aerobic exercise program discussed. Pharmacotherapy as ordered. Assessment & Plan (08/07/2018 8:36 PM CDT): Obesity is unchanged. Commended her on the fact that with everything going on she has not gained weight. Behavioral treatment: have recommended counseling. Diet interventions: as noted. Informal exercise measures discussed, e.g. taking stairs instead of elevator. Regular aerobic exercise program discussed. Pharmacotherapy as ordered. Pursuing RYGB Assessment & Plan (07/03/2018 10:35 AM CDT): Obesity is improving with treatment. General weight loss/lifestyle modification strategies discussed (elicit support from others; identify saboteurs; non-food rewards, etc). Regular aerobic exercise program discussed. Pharmacotherapy as ordered. Reviewed options and will try zonisamide with hopes that it may also help with headaches. Discussed risks, benefits, alternatives, potential side effects. Plan is for bariatric surgery. Assessment & Plan (06/11/2018 12:43 PM CDT): Obesity is improving with lifestyle modifications. Discussed pharmacotherapy options to help with appetite. She has already tried topiramate but had side effects. Consider zonisamide. Consider bupropion/Contrave, however not sure if her neurologic history (venous thrombosis) would preclude use (? incr. risk of Sz.) Will d/d her neurologist. General weight loss/lifestyle modification strategies discussed (elicit support from others; identify saboteurs; non-food rewards, etc). Informal exercise measures discussed, e.g. taking stairs instead of elevator. Regular aerobic exercise program discussed. Assessment & Plan (05/19/2018 10:53 PM CDT): Obesity is improving with treatment. General weight loss/lifestyle modification strategies discussed (elicit support from others; identify saboteurs; non-food rewards, etc). Regular aerobic exercise program discussed. Sensation of chest tightness 01/24/2013 Pain in ear 05/04/2012 Overview (02/24/2018): Description: left and chronic ? headache related Intractable chronic migraine without aura and without status migrainosus 05/04/2012 Anxiety 05/04/2012 Obstructive sleep apnea syndrome 05/04/2012 Overview (02/24/2018): Description: wears CPAP Obstructive sleep apnea 05/04/2012 Bilateral hip pain 03/31/2012 Overview (03/05/2019): X-ray 02/2019: Intact left hip total arthroplasty Assessment & Plan (01/30/2025 4:07 PM CDT): Has had discomfort in the bilateral hips, which is most notably over the bilateral greater trochanter. Had previous left HALLE. TTP over the bilateral greater trochanter. Saw Orthopedics, which had recommended physical therapy, which she has yet to begin. Did recommend PT today, as well. Assessment & Plan (04/07/2019 10:44 AM CDT): History of left hip HALLE a 13 years prior. Has had some increase pain in left hip/groin region, which is worsened with activity. Most recent left hip x-ray 02/2019 displayed intact left hip total arthroplasty. If left hip symptoms persist, may want to follow up with orthopedic surgeon Assessment & Plan (03/02/2019 11:05 AM CDT): History of left hip HALLE a 13 years prior. Has had some increase pain in left hip/groin region, which is worsened with activity. Will obtain left hip x-ray and advised to follow-up with orthopedics if symptoms persist. Surgical follow-up care 03/31/2012 Snoring 07/29/2011 Resolved Problems Problem Noted Date Diagnosed Date Resolved Date Rheumatoid arthritis with ne gative rheumatoid factor 06/08/2018 04/03/2024 Overview (03/25/2020): X-ray (06/12/2018): Left/right ankle: Negative; left/right foot: 1st MTP OA, as well as plantar calcaneal spurring; SI joint: Moderate sclerotic changes right side with mild left; L spine: Moderate facet OA changes; left hand: Negative; right hand: Mild 2nd DIP OA but otherwise negative; bilateral knees: Mild to moderate medial OA; CXR: Negative; Initial serologies: ast 82, alt 95, aldolase 11.6, Avise negative US (06/09/2018): 1) Moderate synovial thickening/effusion with grade 1 PD in the wrist that may be vessel. The 3rd MCP had marked synovial thickening with moderate of the 5th on examination which will have to be correlated clinically. 2) Small 4th compartment effusion. Ultrasound right hand/wrist 01/15/2020: Mild wrist synovial thickening. Moderate 3rd MCP, mild 4th MCP synovial thickening. The DIPs grade 1 power Doppler in the volar region. Moderate 2nd and 3rd PIP synovial thickening. Fourth compartment effusion. The volar 1st IP has grade 1 effusion at spurring. Compared to prior hand ultrasound, there is decreased synovial thickening History of polyarthralgia affecting multiple joints, including the joints of the hands, elbows, knees, and ankles (L>R), as well as the low back. Notes that the joints are more stiff in the morning, which loosened throughout the day. History of OA affecting multiple joints, per patient report, as well. History of malar erythema across her cheeks, mild photosensitivity in the sun, sicca symptoms, acrocyanosis, occasional oral ulcers, occasional pleuritic type chest pains. Denies other symptoms for connective tissue disease. Family history of mother and 2 aunts with SLE. Aunt with RA. Swelling and tenderness present across several MCP and PIP joints on exam. Symptoms suspicious for possible inflammatory arthritis, such as rheumatoid arthritis. No family history for psoriatic arthritis. With that said, patient does complain of DIP involvement, as well as SI joint morning stiffness. More suspicious that these symptoms may be oa, although can consider MRI of the pelvis in the future. Questionable episcleritis in the past? Elevated alt and AST. On arava, hcq, ssz, begin humira Assessment & Plan (08/06/2020 4:19 PM CDT): Cdai 8. After last visit, patient started Humira x3 doses, although was 1st subsequently forced to stop due to COVID diagnosis. She has since resumed leflunomide, Plaquenil, sulfasalazine medications, although has not restarted Humira at this time. While off her medications, she noted increased joint pain, stiffness in the bilateral hands, shoulders, lower back. A.m. stiffness for 60 minutes. Synovitis and tenderness is present on exam. Does not appear adequately controlled. Will restart Humira q.2 week sq injections. Patient advised of the side effects of the medication, including but not limited to increase risk of infection, rash, injection site reaction. Continue Plaquenil 200 mg b.i.d., sulfasalazine 1000 mg b.i.d., leflunomide 20 mg daily. Routine labs today. Follow-up 2 months. Sooner if needed. Assessment & Plan (05/07/2020 1:46 PM CDT): CDAI 15. After last visit, patient was approved for Humira, although she did not proceed with this, she continues to have concerns for potential side effects. Overall, she does continue notes some mild discomfort across several joints, does feel that she is doing fairly well at this time on current treatment regimen. Does continue possess some synovitis with tenderness across several joints on exam. Not quite adequately controlled. Again, discussed risks and benefits of using the Humira medication patient continues to defer this. Discussed risks of uncontrolled inflammation. Will continue Plaquenil 200 mg b.i.d., leflunomide 20 mg daily, sulfasalazine 1000 mg b.i.d.. If symptoms persist or worsen, could reconsider Humira. Follow-up 3 months. Sooner if needed. Assessment & Plan (03/25/2020 3:13 PM CDT): CDAI 28. Continues to note intermittent good/bad days with increased joint complaints, which do involve the bilateral hands, shoulders, hips, lower back, ankles. A.m. stiffness for few minutes. Synovitis is present on exam today. Most recent repeat right hand ultrasound 01/2020 displayed mild wrist synovial thickening. Moderate 3rd MCP, mild 4th MCP, grade 1 power Doppler in the full region of the D IP joints, moderate 2nd and 3rd PIP synovial thickening, 4th compartment effusion, volar aspect of the 1st IP has a grade 1 effusion with spurring. There is decreased synovial thickening compared to prior hand ultrasound. Given these findings, inflammatory arthritis does appear improved, although does certainly persist. Inflammatory spa remains on the differential given the DIP findings. In the past, patient had deferred Humira due to concerns for potential side effects. Rediscussed side effects of Humira with patient today, including but not limited to increase risk of infection, rash, injection site reaction. Patient was amenable to starting at this time. Will begin approval for Humira q.2 weeks subcutaneous injections. Will continue Plaquenil 200 mg b.i.d., leflunomide 20 mg daily, sulfasalazine 1000 mg b.i.d.. Routine labs today. Follow-up 6 weeks. Sooner if needed. If symptoms persist in the future, could consider further increase on sulfasalazine. Assessment & Plan (01/08/2020 4:42 PM [employer]TAIN): CDAI 29. Patient has been on leflunomide medication since 10/03 without any side effects. Overall notes discomfort in the bilateral hands and feet with a.m. stiffness for 15-20 minutes. Does continue possess tenderness across several joints of bilateral hands with swelling across several joints, as well. Not adequately controlled although patient continues to deny biologics due to fear of increased infections with prior biologics. Discussed risks of uncontrolled inflammation. Will continue Plaquenil 200 mg b.i.d., leflunomide 20 mg q.d., sulfasalazine 1000 mg b.i.d.. Routine labs today. Follow-up 2 months. Sooner if needed. Given her DIP symptoms (more bothersome during flares) along with some nail changes in the hands, would like to recheck hand US including dip joints. Depending on US findings, could re-discuss use of biologics. Denies phx, fhx of pso or psa. Assessment & Plan (10/25/2019 11:56 AM [employer]TAIN): CDAI 24. Patient has begun leflunomide medication since last visit without any side effects. Overall notes only mild discomfort in the bilateral hands and feet with a.m. stiffness for 20-30 minutes. Does continue possess tenderness across several joints of bilateral hands with swelling across several joints, as well. Will need to allow the leflunomide medication more time to work. Will continue Plaquenil 200 mg b.i.d., leflunomide 20 mg q.d., sulfasalazine 1000 mg b.i.d.. Of note, patient has deferred biologics in the past due to concerns for side effects. Could reconsider this in the future, if symptoms persist. Routine labs today. Follow-up 2 months. Sooner if needed. 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 Patient has noted persistent joint pain in the bilateral hands (PIP>MCP) (R>L). A.m. Stiffness for 20-30 minutes. Continues to possess synovitis on exam. Does not appear adequately controlled at this time, the patient continues to defer biologic medications, including Cimzia due to strong fear of potential side effects, in particular increased infection risk. Discussed with patient the risks of uncontrolled inflammation. Had been deferring methotrexate and leflunomide in the past due to history of CERRATO elevated LFTs. With that said, recent LFTs were within normal limits. Would like to trial leflunomide 20 mg QD monitoring enzymes closely. Discussed potential side effects including but not limited to increased infection, diarrhea, blood count abnormalities, and/or rash. Will continue sulfasalazine 1000 mg b.i.d., Plaquenil 200 mg b.i.d.. Routine labs today. Follow-up 4 weeks. Sooner if needed. Assessment & Plan (06/19/2019 1:17 PM CDT): Moderate CDAI 11. Patient of the joints have been doing fairly well, although has noted some slight increase in joint discomfort in the hands, which attributes to increased activity for the past week. Complaint still do remain fairly minimal at a 2/10. Denies any other major complaints. Denies any morning stiffness. Does possess some swelling with tenderness across joints of the bilateral hands. Patient did receive Kenalog injection at last visit on 04/26/2019, so may have some residual effects from this. Remains off Cimzia due to concerns for increased infection risk. As symptoms are fairly well controlled, will just continue with Plaquenil 200 mg b.i.d., sulfasalazine 1000 mg b.i.d.. If symptoms progress, would need to reconsider addition of Cimzia and/or other alternative biologic medication. Routine labs today. Follow-up 3 months. Sooner if needed. Assessment & Plan (04/26/2019 1:50 PM CDT): High CDAI 33. Patient has noted increased joint discomfort, primarily involving the bilateral hands, elbows, shoulders, knee. A.m. Stiffness for several hours. Has been requiring more Aleve and ibuprofen recently. Does possess synovitis with tenderness on across several joints on exam. Patient had been much better controlled on cimzia in the past, although eventually stop this due to persistent infections. Again discussed with patient restarted on biologic medication, such as Cimzia, although patient would like to continue to defer at this time and allow the Plaquenil medication more time to work. For this reason, will continue Plaquenil 200 mg b.i.d., sulfasalazine 1000 mg b.i.d.. Due to burden of disease, will administer kenalog 100 mg IM injection, in office, today. Patient was advised of the potential side effects of the medication, including but not limited to increased blood sugar, weight gain, avascular necrosis, glaucoma, cataracts, and/or osteoporosis. Routine labs today. Follow-up 6 weeks. Sooner if needed. If symptoms again exacerbated, patient would then reconsider starting on the Cimzia again. Assessment & Plan (04/07/2019 10:43 AM CDT): Moderate CDAI 18. Patient has noted a slight increase in joint discomfort since stopping the Cimzia and beginning the Plaquenil medication, primarily involving the bilateral hands, left hip, ankles. A.m. Stiffness for 10-20 minutes. Does continue possess some synovitis across across several joints of bilateral hands. Does not appear adequately controlled, although will need to give the Plaquenil medication more time to work. Still believe that patient would benefit most from a biologic medication, such as Cimzia, which was on in the past and well controlled. With that said, patient continues to defer biologic medications at this time due to frequent infections while on the immunosuppressant medication. Will increase Plaquenil to 200 mg b.i.d., continue sulfasalazine 1000 mg b.i.d.. Routine labs today. Follow-up 2 months. Sooner if needed. Assessment & Plan (03/02/2019 11:06 AM CDT): CDAI 20. Since last visit, patient stopped her Cimzia medication due to concern for frequent infections. States that her joints were very well controlled on medication, although has noticed worsening joint symptoms since stopping the medication. With that said, would like to remain off immunosuppressive medications. Does not appear adequately controlled. Discussed azathioprine versus Plaquenil. Patient would like to proceed with Plaquenil at this time, as this is not immunosuppressive. We will begin treatment with Plaquenil 200 mg q.d.. Risks of retinal toxicity were discussed with the patient. They are aware that they should get at least yearly eye exams, unless otherwise specified. Given handout discussing the medication. Continue sulfasalazine 1000 mg b.i.d.. Has tapered prednisone down to 1 mg q.d. For the past 2 weeks. will taper off prednisone at this time. Routine labs today. Follow-up 4 weeks. Sooner if needed. Of note, patient's biggest complaint is significant pain and stiffness in the right 1st IP joint. Will order ultrasound-guided right IP Kenalog injection. Discussed risks and benefits of the injection. 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 Patient missed her last Cimzia injection in October due to upper respiratory infection, which has fully resolved at this time. Did receive her Cimzia injection approximately 2 weeks prior. He has noted worsened joint pain and stiffness primarily involving the hands, elbows, left heel. Swelling is present across several joints of bilateral hands, TTP over the right 3-5 MTP joints, as well as at left plantar fascia insertion. Appears to be in a flare of her disease, which may be secondary to her being late on her Cimzia dosing. Will continue sulfasalazine 1000 mg b.i.d., Cimzia q.4 weeks injections. Due to burden of disease, will administer kenalog 100 mg IM injection, in office, today. Patient was advised of the potential side effects of the medication, including but not limited to increased blood sugar, weight gain, avascular necrosis, glaucoma, cataracts, and/or osteoporosis. Routine labs today. Follow-up 4 weeks. Sooner if needed. If symptoms persist at next visit, would consider alternative biologic medication, such as Orencia. 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 Symptoms have improved since beginning the Cimzia medication, although does continue to have some persistent pain, swelling, and stiffness along with swelling present on exam across few digits. Will need to give the cimzia medication more time to work. Will continue ssz 1000 mg BID, Cimzia injections q4 weeks. Begin to taper prednisone at this time by 1 mg every two weeks. Fu 6 weeks. Sooner if needed. Routine labs today. Assessment & Plan (07/14/2018 4:33 PM CDT): Moderate CDAI. Continues to have swelling and tenderness present across wrists MCP and PIP joints. Patient notes that she has been in a flare this past week with increased stiffness in the morning. Does not appear adequately controlled on sulfasalazine 500 mg b.i.d.. With that said, will need to give medication more time to work. Patient did not receive CBC and CMP 2 weeks after last visit. For this reason, will recheck labs today. If labs are okay, will increase sulfasalazine to 1000 mg b.i.d.. Continue prednisone 10 mg q.d. at this time. Would like to taper this in the near future although unable to at this time. Due to burden of disease, will administer kenalog 100 mg IM injection, in office, today. Patient was advised of the potential side effects of the medication, including but not limited to increased blood sugar, weight gain, avascular necrosis, glaucoma, cataracts, and/or osteoporosis. Follow-up 4 weeks. Sooner if needed. Routine labs today, including recheck CBC CMP in 2 weeks. Due to disease activity, suspicious that patient will likely need rapid movement biologic medications. Assessment & Plan (06/22/2018 5:14 PM CDT): US (06/09/2018): 1) Moderate synovial thickening/effusion with grade 1 PD in the wrist that may be vessel. The 3rd MCP had marked synovial thickening with moderate of the 5th on examination which will have to be correlated clinically. 2) Small 4th compartment effusion. Initial serologies: ast 82, alt 95, aldolase 11.6, Avise negative History of polyarthralgia affecting multiple joints, including the joints of the hands, elbows, knees, and ankles (L>R), as well as the low back. Notes that the joints are more stiff in the morning, which loosened throughout the day. History of OA affecting multiple joints, per patient report, as well. History of malar erythema across her cheeks, mild photosensitivity in the sun, sicca symptoms, acrocyanosis, occasional oral ulcers, occasional pleuritic type chest pains. Denies other symptoms for connective tissue disease. Family history of mother and 2 aunts with SLE. Aunt with RA. Patient notes that joint symptoms have improved since beginning the prednisone medication since last visit. Still having some pain and stiffness in the joints, but much improved. Moderate CDAI. some swelling still present across MCP and PIP joints on exam today. Symptoms, serologies, ultrasound findings appear compatible with seronegative rheumatoid arthritis. Avoiding several medications due to elevated liver enzymes from fatty liver, per patient report. We will begin treatment with sulfasalazine 500 mg b.i.d.. Discussed the potential side effects of the medication, including but not limited to rash, blood count abnormalities, and upset stomach. Will continue prednisone 10 mg q.d. at this time. Would like to taper this in the near future. Patient was advised of the potential side effects of the medication, including but not limited to increased blood sugar, weight gain, avascular necrosis, glaucoma, cataracts, and/or osteoporosis. Follow-up 4 weeks. Sooner if needed. Seen with Dr. Mohamud. Assessment & Plan (06/08/2018 2:51 PM CDT): History of polyarthralgia affecting multiple joints, including the joints of the hands, elbows, knees, and ankles (L>R), as well as the low back. Notes that the joints are more stiff in the morning, which loosened throughout the day. History of OA affecting multiple joints, per patient report, as well. History of malar erythema across her cheeks, mild photosensitivity in the sun, sicca symptoms, acrocyanosis, occasional oral ulcers, occasional pleuritic type chest pains. Denies other symptoms for connective tissue disease. Family history of mother and 2 aunts with SLE. Swelling and tenderness present across several MCP and PIP joints on exam. Symptoms suspicious for possible inflammatory arthritis, such as rheumatoid arthritis. With that said, cannot rule out other connective tissue tissue disease, such as SLE, as patient possesses many symptoms which can be seen with this. Will perform appropriate serologies, radiographs, and right hand ultrasound to further evaluate. Follow- up 2 weeks. Sooner if needed. Seen with Dr. Mohamud. Migraine without aura and re sponsive to treatment 08/24/2017 10/13/2018 Immunizations Immunization Administration Dates Next Due DTP 05/27/1978, 5,1973,02/25,1972 Influenza, Quadrivalent, Yancy l Culture-based MDCK, Preservative Free, Antibiotic Free, Intramuscular 08/22/2020 Influenza, Quadrivalent, Spl it, Intramuscular 08/20/2020 Influenza, Quadrivalent, Spl it, Preservative Free, Intramuscular 08/15/2013 MMR 05/28/1992,08/02/1984 Measles / Rubella 1973 Mumps 02/08/1979 OPV 05/27/1978, 5,1973,02/25,1972 Td, adsorbed 05/23/1997,06/27/1987 Tdap 01/28/2015 Social History Tobacco Use Types Packs/Day Years Used Date Smoking Tobacco: Never Smokeless Tobacco: Never Tobacco Cessation:Counseling Given: Not Answered Alcohol Use Standard Drinks/Week Comments Yes 0 (1 standard drink = 0.6 oz pur e alcohol) 5-6 drinks 2x/month AUDIT-C Answer Date Recorded Q1: How often do you have a drink containing alc ohol? 2-3 times a week 02/01/2022 Q2: How many drinks containi ng alcohol do you have on a typical day when you are drinking? 3 or 4 02/01/2022 Q3: How often do you have si x or more drinks on one occasion? 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 Gender Identity Not on file Sexual Orientation Not on file Last Filed Vital Signs Vital Sign Reading Time Taken Comments Blood Pressure 128/74 01/30/2025 3:26 PM CDT Pulse 84 01/30/2025 3:26 PM CDT Temperature 36.1 C (97 F) 06/05/2024 9:58 AM CDT Respiratory Rate 16 06/05/2024 9:58 AM CDT Oxygen Saturation 96% 01/30/2025 3:26 PM CDT Inhaled Oxygen Concentration - - Weight 110.2 kg (243 lb) 01/30/2025 3:26 PM CDT Height 167.6 cm (5' 6) 01/30/2025 3:26 PM CDT Body Mass Index 39.22 01/30/2025 3:26 PM CDT Plan of Treatment Not on file Medical Devices Implanted Type Area Shroud Line Tier Device Identifier Shelf Expiration Date Model / Serial / Lot Left Ankle Rods And Screws Ankle Left Wrist Rods And Screws Wrist Left Hip Repalcement Hip Procedures Procedure Name Priority Date/Time Associated Diagnosis Comments CBC WITH AUTO DIFFERENTIAL Routine 01/30/2025 3:49 PM CDT Rheumatoid arthritis of multiple sites with negative rheumatoid factor (HCC) Encounter for long-term (current) use of medications COMPREHENSIVE METABOLIC PANEL Routine 01/30/2025 3:49 PM CDT Rheumatoid arthritis of multiple sites with negative rheumatoid factor (HCC) Encounter for long-term (current) use of medications CRP (ACUTE PHASE) Routine 01/30/2025 3:4 9 PM CDT Rheumatoid arthritis of multiple sites with negative rheumatoid factor (HCC) Encounter for long-term (current) use of medications ERYTHROCYTE SEDIMENTATION RATE Routine 01/30/2025 3:49 PM CDT Rheumatoid arthritis of multiple sites with negative rheumatoid factor (HCC) Encounter for long-term (current) use of medications SCREENING MAMMOGRAM BILATERAL W LINO Schedule Routine, Read Routine (OP Routine) 05/21/2020 1:42 PM CDT Encounter for screening mammogram for malignant neoplasm of breast HEPATITIS C ANTIBODY Routine 06/08/2018 2:27 PM CDT Polyarthralgia Fatigue, unspecified type from Last 3 Months or Most Recently Relevant to Health Maintenance Results * CBC with auto differential (01/30/2025 3:49 PM CDT) WBC 6.0 3.8 - 10.8 Thousand/u L [facility] RBC, POC 4.51 3.80 - 5.10 Million/uL [facility] Hgb 13.2 11.7 - 15.5 g/dL [facility] Hct 40.3 35.0 - 45.0 % [facility] MCV 89.4 80.0 - 100.0 fL [facility] MCH 29.3 27.0 - 33.0 pg [facility] MCHC 32.8 32.0 - 36.0 g/dL [facility] Comment: For adults, a slight decrease in the calculated MCHC value (in the range of 30 to 32 g/dL) is most likely not clinically significant; however, it should be interpreted with caution in correlation with other red cell parameters and the patient's clinical condition. Rdw 12.9 11.0 - 15.0 % [facility] Platelets 276 140 - 400 Thousand/u L [facility] MPV 11.5 7.5 - 12.5 fL [facility] Neutrophils, abs 2,004 1,500 - 7,800 cells/uL [facility] Lymphocytes, abs 3,132 850 - 3,900 cells/uL [facility] Monocyte abs 576 200 - 950 cells/uL [facility] Eosinophils, abs 270 15 - 500 cells/uL [facility] Basophils, abs 18 0 - 200 cells/uL [facility] Neutrophils 33.4 % [facility] Lymphocyte pct 52.2 % [facility] Monocytes 9.6 % [facility] Eosinophils 4.5 % [facility] Basophils 0.3 % [facility] Blood 01/30/2025 3:49 PM CDT 01/30/2025 3:49 PM CDT Derick [facility] BLOOD ORDERABLES Fi nal Result Performing Organization Address City/[facility] de Phone Number [facility] [address] [place] [address] * Erythrocyte sedimentation rate (01/30/2025 3:49 PM CDT) [facility] Erythrocyte sedimentation rate 6 < OR = 30 mm/h [facility] Blood 01/30/2025 3:49 PM CDT 01/30/2025 3:49 PM CDT Derick BREWER LAB BLOOD ORDERABLES Fi nal Result Performing Organization Address [facility] de Phone Number [facility] [address] [place] [address] * CRP (acute phase) (01/30/2025 3:49 PM CDT) Pathologist [facility] C-RP <3.0 <8.0 mg/L [facility] Blood 01/30/2025 3:49 PM CDT 01/30/2025 3:49 PM CDT us Derick BREW[facility] BLOOD ORDERABLES Fi nal Result [facility] [address] [place] [phone] * (ABNORMAL) Comprehensive metabolic panel (01/30/2025 3:49 PM CDT) Glucose 89 65 - 99 mg/dL [facility] Comment: Fasting reference interval BUN 14 7 - 25 mg/dL [facility] Creatinine 0.73 0.50 - 1.03 mg/dL [facility] eGFR 99 > OR = 60 mL/min/1.7 3m2 [facility] BUN/creat ratio SEE NOTE: 6 - 22 (calc) [facility] Comment: Not Reported: BUN and Creatinine are within reference range. Sodium 140 135 - 146 mmol/L [facility] Potassium, pl 4.2 3.5 - 5.3 mmol/L [facility] Chloride 100 98 - 110 mmol/L [facility] CO2 33(H) 20 - 32 mmol/L [facility] Calcium 10.3 8.6 - 10.4 mg/dL [facility] Protein, sr 6.9 6.1 - 8.1 g/dL [facility] Albumin 4.6 3.6 - 5.1 g/dL [facility] GLOBULIN 2.3 1.9 - 3.7 g/dL (calc) [facility] Alb/glob ratio 2.0 1.0 - 2.5 (calc) [facility] Bilirubin, total 0.4 0.2 - 1.2 mg/dL [facility] Alk phos 54 37 - 153 U/L [facility] AST 23 10 - 35 U/L [facility] ALT (SGPT) 32(H) 6 - 29 U/L [facility] Blood 01/30/2025 3:49 PM CDT 01/30/2025 3:49 PM CDT Derick BREWER LAB BLOOD ORDERABLES Fi nal Result Performing Organization Address City/[facility]/ZIP Co de Phone Number [facility] [address] [place] [address] * Hepatitis C antibody (06/08/2018 2:27 PM CDT) Hep C Ab NON-REACTI VE NON-REACTI VE [facility] [place] SIGNAL TO CUT-OFF 0.02 <1.00 [facility] [place] Blood specimen (specimen) 06/08/2018 2:27 PM CDT 06/08/2018 2:28 PM CDT Narrative Resulting Agency Comment Performing Organization Information: Site ID: [id number] Name: Gareth Mckeon Address: [address] [place] [phone] Director: Matty Devries D.O., MPH [facility] MICROBIOLOGY - GENE RAL ORDERABLES Final Result Performing Organization Address City/[facility] Co de Phone Number [facility] [place] from Last 3 Months or Most Recently Relevant to Health Maintenance Insurance [facility] CHOICE PLUS [facility] CHOICE PLUS [facility] Member Subscriber Plan / Payer (Ef fective 2018-Present) Name:Elizabeth Zeny Castro Relation to Subscriber:Self Name:ZENY JOHNSON Payer ID:[id number] (NAIC) Type:[facility] HMO/PPO Address: [place] [id number] CHOICE PLUS 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
--- OUTSIDE RECORDS SUMMARY | 2025-04-12 10:11 | XMS_ITS | Clinical Summary ---
Author Organization [facility] al Address [address] [place] [address] Care Team Providers Care Machine Operator Name Role Phone Patricia Mckeon MD Primary Care Provider + Javi Wells MD Unavailable [phone] Allergies Active Allergy Reactions Criticality Noted Date [...] for nausea or vomiting 20 tablet 1 Active ubrogepant (UBRELVY) 100 mg tabletIndications :Intractable [...] every 30 (thirty) days 3 mL 3 Active diclofenac (CATAFLAM) 50 mg tablet Take 1 tablet by mouth twice daily as needed for pain 60 tablet Active adalimumab-ryvk 40 mg/0.4 mL auto-injector, kit INJECT 40 MG (0.4 ML) UNDER THE SKIN EVERY 14 DAYS 6 each Active hydroxychloroquin e (PLAQUENIL) 200 mg tablet [...] exercise. Assessment & Plan (10/31/2024 4:33 PM PRODUCTION ADMINISTRATIVE ASSISTANT): Has general tenderness to palpation, which I [...] Effexor. Assessment & Plan (01/19/2024 4:16 PM PRODUCTION ADMINISTRATIVE ASSISTANT): Has describes longstanding generalized arthralgias and tenderness [...] as discussed Prediabetes 04/15/2022 Rheumatoid arthritis of [facility] sites with negative rheumatoid factor 05/06/2020 [...] dsDNA equivocal by [facility]), RF IgM 3.9, B2GPI IgM 8.4 US [...] exams. Assessment & Plan (10/31/2024 4:32 PM PRODUCTION ADMINISTRATIVE ASSISTANT): CDAI 21. Overall, which recent notes that [...] active as well. Working out with a hop strainer and is down 17lbs since last visit. [...] weeks. Assessment & Plan (01/19/2024 4:11 PM PRODUCTION ADMINISTRATIVE ASSISTANT): CDAI 21. Zeny was last seen 07/2023, [...] Continue routine eye exams. Routine labs today. Follow- up 3 months. Sooner if needed. Assessment & [...] persist. Assessment & Plan (12/26/2020 4:40 PM PRODUCTION ADMINISTRATIVE ASSISTANT): CDAI 11. Patient last seen 07/2020, as [...] (04/15/2020): Added automatically from request for surgery [id number] Lateral epicondylitis of left elbow 03/25/2020 Assessment & Plan (12/26/2020 4:42 PM PRODUCTION ADMINISTRATIVE ASSISTANT): Primary complaint persistent left lateral epicondylitis, which [...] (01/30/2020): Added automatically from request for surgery [id number] Chronic bilateral low back pain 09/25/2019 Overview [...] pending. Assessment & Plan (01/08/2020 4:44 PM PRODUCTION ADMINISTRATIVE ASSISTANT): L-spine MRI 09/04/2019: Minimal disc bulge, mild [...] gone. Assessment & Plan (10/25/2019 11:53 AM PRODUCTION ADMINISTRATIVE ASSISTANT): L-spine MRI 09/04/2019: Minimal disc bulge, mild [...] visit. Assessment & Plan (09/25/2019 11:37 AM PRODUCTION ADMINISTRATIVE ASSISTANT): L-spine MRI 09/04/2019: Minimal disc bulge, mild to moderate facet arthropathy, minimal foraminal stenosis bilaterally, mild central canal stenosis at L4-L5, L5-S1. Continues to note persistent lower back pain with radicular symptoms down the abeba legs (R>L). Patient continues to defer PT due to cost burden. Will refer to Paresthesias 09/25/2019 Assessment & Plan (01/08/2020 4:43 PM PRODUCTION ADMINISTRATIVE ASSISTANT): Intermittent which is worse at night affecting all digits in the abeba hands (1-3 digits>remaining). Recent L elbow MRI did display ulnar nerve inflammation. Symptoms suspicious for CTS, as well. Symptoms improved with bracing at night, although do persist. Will obtain emg and refer to Dr. Werner, orthopedics. Assessment & Plan (09/25/2019 11:48 AM PRODUCTION ADMINISTRATIVE ASSISTANT): Intermittent which is worse at night affecting [...] 04/26/2019 Assessment & Plan (09/25/2019 11:45 AM PRODUCTION ADMINISTRATIVE ASSISTANT): As above, will refer to PM. Defers [...] 05/2018 Assessment & Plan (10/31/2024 4:32 PM PRODUCTION ADMINISTRATIVE ASSISTANT): Routine labs today. Quant neg 03/2020 Hep panel neg 05/2018 Assessment & Plan (05/29/2024 2:57 PM CDT): Routine labs today. Quant neg 03/2020 Hep panel neg 05/2018 Assessment & Plan (04/07/2024 2:30 PM CDT): Routine labs today. LFTs remain elevated - cautioned to take diclofenac sparingly. Quant neg 03/2020 Hep panel neg 05/2018 Assessment & Plan (01/19/2024 4:15 PM PRODUCTION ADMINISTRATIVE ASSISTANT): Routine labs today. Quant neg 03/2020 Hep [...] 05/2018 Assessment & Plan (12/26/2020 4:42 PM PRODUCTION ADMINISTRATIVE ASSISTANT): Routine labs today. Quant neg 03/2020 Hep [...] 05/2018 Assessment & Plan (01/08/2020 3:56 PM PRODUCTION ADMINISTRATIVE ASSISTANT): Routine labs today. Quant neg 08/2018 Hep panel neg 05/2018 Assessment & Plan (10/25/2019 11:53 AM PRODUCTION ADMINISTRATIVE ASSISTANT): Routine labs today. Quant neg 08/2018 Hep panel neg 05/2018 Assessment & Plan (09/25/2019 11:45 AM PRODUCTION ADMINISTRATIVE ASSISTANT): Routine labs today. Quant neg 08/2018 Hep [...] 05/2018 Assessment & Plan (11/29/2018 4:24 PM PRODUCTION ADMINISTRATIVE ASSISTANT): Routine labs today. Quant neg 08/2018 Hep panel neg 05/2018 Assessment & Plan (10/13/2018 4:51 PM PRODUCTION ADMINISTRATIVE ASSISTANT): Routine labs today. Quant neg 08/2018 Hep panel neg 05/2018 Weight loss counseling, encounter for 05/19/2018 Assessment & Plan (12/17/2018 2:39 PM PRODUCTION ADMINISTRATIVE ASSISTANT): Reviewed calorie restriction based on BMR as [...] 05/19/2018 Assessment & Plan (12/17/2018 2:40 PM PRODUCTION ADMINISTRATIVE ASSISTANT): Continue low-carb (<150 g/day), low-glycemic diet. Assessment [...] 01/24/2013 Assessment & Plan (12/17/2018 2:43 PM PRODUCTION ADMINISTRATIVE ASSISTANT): Obesity is unchanged. Behavioral treatment: have recommended [...] sulfasalazine. Assessment & Plan (01/08/2020 4:42 PM PRODUCTION ADMINISTRATIVE ASSISTANT): CDAI 29. Patient has been on leflunomide [...] psa. Assessment & Plan (10/25/2019 11:56 AM PRODUCTION ADMINISTRATIVE ASSISTANT): CDAI 24. Patient has begun leflunomide medication [...] needed. Assessment & Plan (09/25/2019 11:35 AM PRODUCTION ADMINISTRATIVE ASSISTANT): CDAI 26. Patient has noted persistent joint [...] injection. Assessment & Plan (11/29/2018 4:25 PM PRODUCTION ADMINISTRATIVE ASSISTANT): High CDAI. Patient missed her last Cimzia [...] Orencia. Assessment & Plan (10/13/2018 5:01 PM PRODUCTION ADMINISTRATIVE ASSISTANT): Moderate CDAI. Symptoms have improved since beginning [...] and re sponsive to treatment 08/24/2017 10/13/2018 Encounters Date Type Department Care Team Description 02/09/2025 11:30 AM CDT Telemedicine [facility] General Neurology [address] [place] [phone] Shona Elam PA Intractable chronic migraine without aura and without status migrainosus 02/09/2025 Telephone [facility] General Neurology [address] [place] [phone] Shona Elam PA Ubrelvy DANIELLA 01/31/2025 Results Follow-Up [facility] [address] [place] [phone] Derick Rosario PA Erythrocyte sedimentation rate, CRP (acute phase), Comprehensive metabolic panel, CBC with auto differential 01/30/2025 3:30 PM CDT Office Visit [facility] [address] [place] [phone] Derick Rosario PA Rheumatoid arthritis of multiple sites with negative rheumatoid factor (HCC) (Primary Dx); Fibromyalgia; Bilateral hip pain; Encounter for long-term (current) use of medications 01/26/2025 Orders Only [facility] [address] [place] [phone] Derick Rosario PA 01/26/[address] [phone] Lloyd Mancilla change to biosim from Last 3 Months Immunizations Immunization Administration Dates Next Due DTP 05/27/1978, 5,1973,02/25,1972 Influenza, Quadrivalent, Yancy l Culture-based MDCK, Preservative Free, Antibiotic Free, Intramuscular 08/22/2020 Influenza, Quadrivalent, Spl it, Intramuscular 08/20/2020 Influenza, Quadrivalent, Spl it, Preservative Free, Intramuscular 08/15/2013 MMR 05/28/1992,08/02/1984 Measles / Rubella 1973 Mumps 02/08/1979 OPV 05/27/1978, 5,1973,02/25,1972 Td, adsorbed 05/23/1997,06/27/1987 Tdap 01/28/2015 Surgical History Surgery Date Site/Laterality Comments WRIST SURGERY Left ORIF, hardware remains TN APPENDECTOMY Appendectomy - (Added by TW Conv) TN ARTHRP ACETBLR/PROX FEM PROSTC AGRFT/ALGRFT 05/05/2006 Left MANDIBLE SURGERY Jaw Surgery - (Added by TW Conv)--no hardware, got hit with ball as young girl [place] TRANSTYMPANIC EUSTACH TUBE CATH Eustachian Tube Catheterization, Transtympanic - (Added by TW Conv)-as an adult, thinks they have fallen out. 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 no further issues (Added by TW Conv) Personal history of other di seases of the nervous system and sense organs History of migraine wi th aura - (Added by TW Conv) Personal history of other di seases of the digestive system 2016 History of duodenal ulcer, resolved- (Added by TW Conv) Encounter for screening for cardiovascular disorders 2014 Treadmill stress test negati ve for angina pectoris - (Added by TW Conv) no further issues Metabolic and nutritional disorder 05/19/2018 Depression well controlled on daily med Anxiety prn xanax Rheumatoid arthritis (HCC) Hypertension EDUARDO (obstructive sleep apnea) we ars CPAP Nonalcoholic fatty liver disease labs done 04/03 WNL Hiatal hernia resolved after c hole, no meds Asthma prn inhaler only , none x 6 mos. TMJ (dislocation of temporom andibular joint) denies issues Obesity BMI-44. Pt. stat es weight of 270lb is current. Seasonal allergies Deep vein thrombosis (HCC) Gastric reflux Inflammatory bowel disease Migraines Osteoporosis Pneumonia Urinary tract infection Peptic ulceration Family History Medical History Relation Name Comments Alcohol abuse Father Cancer Father Family history of malignant neoplasm - (Added by TW Conv) Alcohol abuse Mother Arthritis Mother Blood Clot Mother Family history of blood clots - (Added by TW Conv) Clotting disorder Mother Hypertension Mother Family history of hypertension - (Added by TW Conv) Kidney disease Mother Lupus Mother Mental illness Mother Obesity Mother Overweight - (A dded by TW Conv) Stroke Mother Migraines Other 1 Migraine Headac he - mom and son (Added by TW Conv) Lupus Other 2 Systemic Lupus Erythematosus - mom and 2 maternal aunts (Added by TW Conv) Diabetes Other 3 Diabetes Mellit us - MGM and (M)unlce (Added by TW Conv) Hypertension Other 4 Hypertension - mom (Added by TW Conv) Heart failure Other 5 Congestive Hea rt Failure - mom and MGF (Added by TW Conv) Cancer Other 6 Reported A Hist ory Of Cancer - MGF leukemia and (M)uncle with throat ca (Added by TW Conv) Colon cancer Other 7 Malignant Neopl asm, Colon - (M)aunt (Added by TW Conv) Obesity Sister Overweight - (A dded by TW Conv) Relation Name Status Comments Father Mother Other 1 Other 2 Other 3 Other 4 Other 5 Other 6 Other 7 Sister Social History Tobacco Use Types Packs/Day Years [...] on file Legal Sex Female 9:08 PM PRODUCTION ADMINISTRATIVE ASSISTANT Gender Identity Not on file Sexual Orientation Not on file Obstetrics History Last Filed Vital Signs Vital Sign Reading [...] 01/30/2025 3:26 PM CDT Plan of Treatment Health Maintenance Due Date Last Done Comments Colon Cancer Screening-Colonoscopy 1972 Depression Screening 1972 Hepatitis B Screening 1990 Regular Well Visit/Exam 18-64 1990 Pneumococcal vaccine <65 (1 of 2 - PCV) 1991 Zoster Vaccine (1 of 2) 1991 Covid-19 Vaccine (3 - Pfizer risk series) 02/15/2021 01/18/2021, 12/20/2020 DTaP/Tdap/Td Vaccine (7 - Td or Tdap) 01/28/2025 01/28/2015, 05/23/1997, 06/27/1987, Additional history exists Influenza Vaccine (Season Ended) 2025 08/22/2020, 08/20/2020, 08/15/2013 Breast Cancer Screening-Mammogram 01/15/2026 01/15/2025, 01/15/2025, 11/26/2023, Additional history exists Hepatitis C Screening Completed 06/08/2018 Medical Devices Implanted Type Area [place] Device Identifier Shelf Expiration Date Model / [...] with auto differential (01/30/2025 3:49 PM CDT) Pathologist [facility] WBC 6.0 3.8 - 10.8 Thousand/u L [...] ORDERABLES Fi nal Result Performing Organization Address City/[facility] Co de Phone Number [facility] [address] [place] [address] * Erythrocyte sedimentation rate (01/30/2025 3:49 PM CDT) Pathologist [facility] Erythrocyte sedimentation rate 6 < OR = 30 mm/h [facility] Blood 01/30/2025 3:49 PM CDT 01/30/2025 3:49 PM CDT Derick [facility] BLOOD ORDERABLES Fi nal Result Performing Organization Address [facility] Co de Phone Number [facility] [address] [place] [address] * CRP (acute phase) (01/30/2025 3:49 PM CDT) C-RP <3.0 <8.0 mg/L [facility] Blood 01/30/2025 3:49 PM CDT 01/30/2025 3:49 PM CDT Derick [facility] BLOOD ORDERABLES Fi nal Result Performing Organization Address City/[facility] Co de Phone Number [facility] [address] [place] [address] * (ABNORMAL) Comprehensive metabolic panel (01/30/2025 3:49 [...] BLOOD ORDERABLES Fi nal Result [facility] [address] [place] [phone] * Hepatitis C antibody (06/08/2018 2:27 PM CDT) Hep C Ab NON-REACTI VE NON-REACTI VE [facility] [place] SIGNAL TO CUT-OFF 0.02 <1.00 [facility] [place] Blood specimen (specimen) 06/08/2018 2:27 PM CDT 06/08/2018 2:28 PM CDT Narrative Resulting Agency Comment Performing Organization Information: Site ID: [place] Name: Gareth Mckeon Address: [address] [place] [address] Director: Matty Devries D.O., MPH Derick [facility] MICROBIOLOGY - GENE RAL ORDERABLES Final Result [facility] [place] from Last 3 Months or Most Recently Relevant to Health Maintenance Insurance [facility] [place] [address] [facility] CHO[facility] PL[facility] Member Subscriber Plan / Payer (Ef fective 2018-Present) Name:[place] Relation to Subscriber:Self Name:YANETHZENY Payer ID:[id number] (NAIC) Type:[facility] HMO/PPO Address: [address] CHOICE PLUS [facility] CHOICE PLUS Care Teams Machine Operator Relationship Specialty Start Date End Date Patricia Mckeon MD PCP - General 03/11/17 Javi Wells MD [address] [place] [id number] Consulting Physician Rheumatology 01/26/24
--- OUTSIDE RECORDS SUMMARY | 2025-04-12 10:11 | XMS_ITS | Clinical Summary ---
Author Organization [facility] Address [address] [place] [address] Care Team Providers Care Senior Etl Developer Name Role Phone Patricia Mckeon MD Primary Care Provider [phone] Source Comments [facility],non-owned Affiliates and Associated Physician Practices is amultiple site organization consisting of ambulatory clinics and hospital sitesin [place], [place], [place] and [place]. This disclosure is being madepursuant to the Care Everywhere program and may not contain all information available regarding this patient. Last updated 18.[facility] Allergies No known active allergies Encounters Date Type Department Care Team Description 01/15/2025 12:47 PM INFANT NANNY - 01/15/2025 11:59 PM INFANT NANNY Hospital Encounter [address] [address] Patricia Mckeno MD Discharge Disposition: Home or Self Care 01/15/2025 Travel from Last 3 Months Family History Medical History Relation Name Comments Cancer - Colon Maternal Aunt Relation Name Status Comments Maternal Aunt Social History Tobacco Use Types Packs/Day Years Used Date Smoking Tobacco: Never Assessed Comments No Sex and Gender Information Value Date Recorded Sex Assigned at Not on file Legal Sex Female 7:03 PM INFANT NANNY Gender Identity Not on file Sexual Orientation Not on file Last Filed Vital Signs Vital Sign Reading Time Taken Comments Blood Pressure - - Pulse - - Temperature - - Respiratory Rate - - Oxygen Saturation - - Inhaled Oxygen Concentration - - Weight 109.8 kg (242 lb) 01/15/2025 1:04 PM INFANT NANNY Height 167.6 cm (5' 6) 01/15/2025 1:04 PM INFANT NANNY Body Mass Index 39.06 01/15/2025 1:04 PM INFANT NANNY Plan of Treatment Health Maintenance Due Date Last Done Comments COLOGUARD (AGES 45-75) - COLON CA SCREENING 1972 COLON MONITORING 1972 COLONOSCOPY - COLON CA SCREENING 1972 CT COLONOGRAPHY - COLON CA SCREENING 1972 Colorectal Cancer Screening 1972 FIT - COLON CA SCREENING 1972 FLEX SIG - COLON CA SCREENING 1972 LIPID TESTING 1972 PAP SMEAR 1972 HIV SCREENING 1987 HEPATITIS C SCREENING 10/23/1990 DTAP/TDAP/TD VACCINES (1 - Tdap) 1991 HEPATITIS B VACCINE (1 of 3 - 19+ 3-dose series) 1991 PNEUMOCOCCAL VACCINE 50+ (1 of 1 - PCV) 2022 ZOSTER VACCINE (1 of 2) 2022 COVID-19 VACCINE (3 - season) 2024 01/18/2021, 12/20/2020 DEPRESSION SCREENING 11/15/2024 INFLUENZA VACCINE (Season Ended) 2025 08/22/2020, 08/20/2020, 08/15/2013 MAMMOGRAM 01/15/2027 01/15/2025, 11/15, 12/04/2021, Additional history exists HIB VACCINE Aged Out No longer eligi ble based on patient's age to complete this topic HPV VACCINE Aged Out No longer eligi ble based on patient's age to complete this topic MENINGOCOCCAL (Group B) VACCINE SHARED DECISION-MAKING Aged Out No longer eligible based on patient's age to complete this topic MENINGOCOCCAL GROUPS A/C/Y/W VACCINE Aged Out No longer eligible based on patient's age to complete this topic Procedures Procedure Name Priority Date/Time Associated Diagnosis Comments MAMMO BILAT SCREENING W ANUPAM Routine 01/15/2025 1:04 PM INFANT NANNY Visit for screening mammogram from Last 3 Months Results * Mammo Bilat Screening W Anupam (01/15/2025 1:04 PM INFANT NANNY) Anatomical Region Laterality Modality Breast Bilateral Mammography 01/15/2025 1:42 PM INFANT NANNY Impressions 01/15/2025 2:55 PM INFANT NANNY IMPRESSION: Benign mammogram, without evidence of malignancy. RECOMMENDATION: Screening mammography in one year, pending no interval breast concerns. Patient will receive the examination results by lay letter. OVERALL ASSESSMENT: BI-RADS CATEGORY 2: BENIGN. Report dictated by Mona Agudelo MD I, Lona Sotelo DO have personally reviewed and interpreted this examination/study. > Interpreting Provider: Lona Sotelo DO on 01/15/2025 2:55 PM Narrative 01/15/2025 2:55 PM INFANT NANNY EXAMINATIONS: BILATERAL DIGITAL SCREENING MAMMOGRAM AND BILATERAL BREAST TOMOSYNTHESIS LOCATION: [facility] EXAM DATE: 01/15/2025 HISTORY: Screening. No reported family history of breast cancer. RISK ASSESSMENT CALCULATION: Patient completed a breast cancer risk assessment during her appointment 01/15/2025. Based upon the information she provided and her mammographic breast density, her lifetime risk of developing breast cancer is 11 % (Average Risk <15%; Intermediate / Moderate Risk 15-19; High Risk > 20%). Risk assessment based upon the BRCAPRO model. COMPARISON: Comparison is made to prior mammograms back to 05/21/2020. TECHNIQUE: Tomosynthesis (3D) and reconstructed synthetic 2-D images acquired and reviewed in the bilateral craniocaudal and mediolateral oblique projections. A total of 6 images obtained. Scar marker placed on the right breast. Transpara AI was utilized in the interpretation. BREAST PARENCHYMAL COMPOSITION: Category B: There are scattered areas of fibroglandular density. FINDINGS: There are no suspicious findings or evidence of malignancy on mammography. Biopsy clip in the right breast. There is no significant change from the prior. us Patricia Mckeon MD MAMMO ORDERABLES Final Result from Last 3 Months Insurance [facility] Member Subscriber Plan / Payer (Ef fective 2018-Present) Name:Zeny Wolfe Relation to Subscriber:Self Name:Zeny Wolfe Payer ID:[id number] (NAIC) Type:HMO Address: [place] [id number] SELF PAY NO INSURANCE Member Subscriber Plan / Payer (Ef fective for All Dates) Name:Zeny Wolfe Member ID:Not on file Relation to Subscriber:Not on file Name:ZENY WOLFE Subscriber ID:Not on file (Home) Address: [address] [place], [place] [id number] Payer ID:Not on file Group ID:Not on file Type:Self Pay Address: [place], [place] [facility] Member Subscriber Plan / Payer (Ef fective 2011-Present) Name:Zeny Wolfe Relation to Subscriber:Self Name:ZENY WOLFE Payer ID:[id number] (NAIC) Type:HMO Address: [place] [phone] Care Teams Senior Etl Developer Relationship Specialty Start Date End Date Patricia Mckeon MD [address] [place] [address] [place] [address] PCP - General Family Medicine 03/02/19
--- OUTSIDE RECORDS SUMMARY | 2025-04-12 10:12 | XMS_ITS | Continuity of Care Document ---
Author Organization [place] [facility] [place] Address [address] [place] [address] Care Team Providers Care Radiographer Technologist Name Role Phone BINH TOBINIE Primary Care Provider Unavailab le Assessment No assessment recorded. Plan of Treatment Reminders Order Date Submit Date Provider Last Modified By Organization Details Last Modified Time Details Appointments None recorded. Lab CBC w/ auto diff 025 025 [facility], [address], [place], [address], 5 15:39:25 CMP, serum or plasma 025 025 [facility], [address], [place], [address], 5 15:39:25 vitamin B12, serum 025 025 [facility], [address], [place], [address], 5 15:39:25 lipid panel, serum 025 025 [facility], [address], [place], [address], 5 15:39:24 HbA1c (hemoglob in A1c), blood 025 025 [facility], [address], [place], [address], 5 15:39:26 TSH + free T4, serum 025 025 [facility], [address], [place], [address], 5 15:39:26 insulin, serum 025 025 [facility], [address], [place], [address], 5 15:39:24 Referral None recorded. Procedures None recorded. Surgeries None recorded. Imaging XR, chest, [address] (Imaging), [address] [place] [address] [address], [place], [address], 5 15:44:11 Medication Orders None recorded. Patient TargetsNo targets recorded. Patient Instructions Encounter Date Encounter Id Patient Instructions Last Modified By Organization Details Last Modified Time 04/11/2025 [id number] A healthy lifestyle: care instructions [email or web address] Not available 04/11/2025 15:39:13 Reason for Referral None Reported. Problems Name Problem SNOMED Code Status Onset Date Resolution Date Notes Provider Name and Address Organization Details Recorded Time Body mass index 30+ - obesity 006000041 Active 2024 DANIELLA Wright Attn: Amol baptiste,[address] [facility], [place], [address], [place] [facility] 5 23:01:27 Obese class II 2326823358012 05 Active 2024 DANIELLA Wright Attn: Amol g,[address] [facility], [place], [address], [place] [facility] 5 23:01:28 Positive screening for depression on PHQ-9 (Patient Health Questionnai re 9) 1958032072683 00 Active 2024 DANIELLA Wright Attn: Amol g,[address] [facility], [place], [address], [place] [facility] 5 23:01:50 Long-term current use of drug therapy 745566484 Active 2024 DANIELLA Wright Attn: Amol baptiste,[address] [place], [address], [facility] 5 23:02:06 Tetanus toxoid vaccination given 8014723845746 01 Active 2024 DANIELLA Wright Attn: Amol baptiste,[address] [place], [address], [facility] 5 23:02:11 Benign hypertensio n 44894574 Active 2024 DANIELLA Wright Attn: Amol baptiste,[address] [place], [address], [facility] 5 23:04:29 Migraine 56778410 Active 2024 DANIELLA Wright Attn: Amol baptiste,[address] [place], [address], [facility] 5 23:04:31 Recurrent depression 206710681 Active 2024 DANIELLA Wright Attn: Amol baptiste,[address] [place], [address], [facility] - [facility] 23:04:32 Problem Notes None recorded. Procedures Surgical History Date Name Laterality Status Provider Name and Address Organization Details Recorded Time appendectomy completed Marika Winkler MA [facility] 04/11/2025 15:53:38 Hernia Repair completed Marika Winkler MA [facility] 04/11/2025 15:53:44 Joint Replacement completed Marika Winkler MA [facility] 04/11/2025 15:54:00 Total hysterectomy completed Marika Winkler MA [facility] 04/11/2025 15:54:04 Imaging Results None recorded. Procedure Notes None recorded. Medical Equipment None Reported. Allergies Allergen ID Allergen Name Allergen Category Reaction Reaction Severity Criticality Documentation Date Start Date Code Code System Note Provider Name and Address Organization Details Recorded Time Ambien medicatio n itching Not available Not available 04/11/2025 09659 5 RxNorm MIKE Dunlap, [facility] 14:54:42 986209 zolpidem medicatio n itching Not available Not available 04/11/2025 96022 RxNofarida MIKE Dunlap, [facility] 14:54:53 Medications Name Sig Start Date Stop [...] 80 mm[Hg] DANIELLA Wright Attn: [address] [place], [address], [facility] 04/11/2025 15:39:35 Date Recorded Body weight Body mass index (BMI) Body height Oxygen saturation Oxygen saturation in Arterial blood by Pulse oximetry Heart rate Respiratory rate Systolic blood pressure Diastolic blood pressure Provider Name and Address Organization Details Last Updated DateTime 5 557956. 21 g 37.9 kg/m2 167.64 cm 97 % 97 % 85 /min 18 /min 140 mm[Hg] 82 mm[Hg] Marika Winkler MA [facility] 15:01:21 Social History Question Answer Notes LastModified by Organizat ion Details LastModified Time Tobacco Smoking Status Never Smoker Marika Winkler MA null, [facility] 04/11/2025 15:53:31 Do You Have An Advance [...] High Blood Pressure Y Atrial Fibrillation N Kidney or Bladder Problems N Thyroid Problems N GI Problems N Depression Y COPD N Blood Clots Y Have you had a mammogram in the last yea r? N Skin Problems N Anemia N Heart Attack (MS) N Anxiety Disorder Y Diabetes N Muscle, Joint, or Bone Problems Y Seizures/Epilepsy N Have you had a colonoscopy in the last 1 0 years? N Acid Reflux (GERD) N Cancer N Stroke N Asthma Y Allergies Y Have you had a PSA blood test in the las t year? N High Cholesterol N Hepatitis N Liver Disease Y Headaches Y Heart Failure N Osteoporosis N Gynecological History Statement/Question Response Menses Monthly N Current Control Method Hysterectom y Obstetrics History GPAL:G 3 P 3 0 0 3 Type Value Multiple Births 0 Full Term 3 Induced 0 Spontaneous 0 Premature 0 Living 3 Ectopics 0 Total 3 Immunizations Vaccine Type Date Status Note Provider Nam e and Address Organization Details Recorded Time DTP 3 completed Not Available [facility] 04/11/2025 14:34:19 OPV 3 completed Not Available [facility] 04/11/2025 14:34:19 OPV 3 completed Not Available [facility] 04/11/2025 14:34:19 DTP 3 completed Not Available [facility] 04/11/2025 14:34:19 DTP 3 completed Not Available [facility] 04/11/2025 14:34:19 M/R 3 completed Not Available [facility] 04/11/2025 14:34:19 OPV 3 completed Not Available [facility] 04/11/2025 14:34:19 DTP 5 completed Not Available [facility] 04/11/2025 14:34:19 OPV 5 completed Not Available [facility] 04/11/2025 14:34:19 DTP 8 completed Not Available [facility] 04/11/2025 14:34:19 OPV 8 completed Not Available [facility] 04/11/2025 14:34:19 mumps 9 completed Not Available [facility] 04/11/2025 14:34:19 MMR 4 completed Not Available [facility] 04/11/2025 14:34:19 Td (adult), 2 Lf tetanus toxoid, preservative free, adsorbed 7 completed Not Available [facility] 04/11/2025 14:34:19 MMR 2 completed Not Available [facility] 04/11/2025 14:34:19 Td (adult), 2 Lf tetanus toxoid, preservative free, adsorbed 7 completed Not Available [facility] 04/11/2025 14:34:19 Influenza, split virus, quadrivalent, PF 3 completed Not Available [facility] 04/11/2025 14:34:19 Tdap 5 completed Not Available [facility] 04/11/2025 14:34:19 Influenza, MDCK, quadrivalent, PF 0 completed Not Available [facility] 04/11/2025 14:34:19 COVID-19, mRNA, LNP-S, PF, 30 mcg/0.3 mL dose 1 completed Not Available [facility] 04/11/2025 14:34:19 COVID-19, mRNA, LNP-S, PF, 30 mcg/0.3 mL dose 1 completed Not Available [facility] 04/11/2025 14:34:19 Influenza, split virus, trivalent, preservative 1 completed Not Available [facility] 04/11/2025 14:34:19 COVID-19, mRNA, LNP-S, PF, 30 mcg/0.3 mL dose 1 completed Not Available [facility] 04/11/2025 14:34:19 Influenza, MDCK, quadrivalent, PF 2 completed Not Available [facility] 04/11/2025 14:34:19 Influenza, MDCK, quadrivalent, PF 3 completed Not Available [facility] 04/11/2025 14:34:19 Influenza, split virus, trivalent, PF 4 completed Not Available [facility] 04/11/2025 14:34:19 COVID-19, mRNA, LNP-S, PF, carleen-sucrose, 30 mcg/0.3 mL 4 completed Not Available [facility] 04/11/2025 14:34:19 Tdap 5 completed DANIELLA Wright Attn: [address] [place], [address], [facility] 04/11/2025 15:39:13 Past Encounters Encounter ID Performer Location Encounter Start Date Encounter Closed Date Diagnosis/Indication Diagnosis SNOMED-CT Code Diagnosis ICD10 Code Diagnosis Note [id number] Derick Lester MD [facility] [place] [address] [place] [address] 04/11/2025 14:32:20 04/11/2025 15:44:11 Tetanus toxoid vaccination given 3828584616 75630 Z23 Tdap given today Long-term current use of drug therapy 838390179 Z79.899 cmp, cbc and b12, folate labs are due Diabetes m ellitus screening 311852852 Z13.1 A1c screening due Cholesterol screening 27 7997464 Z13.220 Fasting lipids due Body mass index 30+ - obesity 761382847 Z68.37 Continue diet and exercise modificati ons and trial of Zepbound 2.5 mg weekly Obese class II 692041229 1 [address]379 E66.812 As above Plain X-ra y of chest abnormal 8903762272 R93.89 Patient gives a report that she [...] depression on PHQ-9 (Patient Health Questionnaire 9) 0110058256 90407 Z13.31 Patient is positive on screening today. She is on venlafaxin e 225 mg daily for her anxiety management and Rexulti for her depression management . She does overall feel stable though she is not in remission. Rheumatoid arthritis 698 53654 M06.9 Patient is on Plaquenil and adalimumab injectable . Rheumatoid is stable but still with symptom breakthrou gh Generalize d anxiety disorder 39078940 F41.1 Anxiety is greater than depression . Patient currently takes venlafaxin e ER 225 mg daily. She does feel stable she also takes lorazepam 1 mg at bedtime Recurrent depression 191 853156 F33.9 For depression patient is on Rexulti 1 mg daily. Patient is stable Migraine 15418189 G43.90 9 Aimovig monthly injection and Ubrelvy for breakthrou gh migraine Benign hypertension 1072 5009 I10 Lisinopril 10 mg/HCTZ 12.5 mg daily for blood pressure management . Health Concerns Section Related Observation LastModified by Organization Detai ls LastModified Time None Recorded Concern Status LastModified by Organization Details LastModified Time None Recorded Payers Encounter Date Sequence Insurance Name Policy Number Policy Elliott Covered Member ID Elliott Member ID Guarantor Name 04/11/2025 1 [facility] [id number] Zeny Johnson [id number] Zeny Johnson Notes Date Note Type Note [...] chest x-ray. DANIELLA Wright Attn: [address] [place], [address], [place] [facility] 04/11/2025 23:11:40 OBGyn Episode No OBEpisode recorded.
--- OUTSIDE RECORDS SUMMARY | 2025-04-12 10:12 | XMS_ITS | Continuity of Care Document ---
Author Organization [facility] Address [address] [place] [address] Phone Care Team Providers Care Diamond Sorter Name Role Phone Jeana Varma Unavailable Unavailable Advance Directives Directive Yes / No Effective Date File Name No Information Encounters Encounter Description Practice Location Reason(s) For Visit Diagnoses Date Provider Providers Copied on Encounter [facility], [address], [place], [place], [id number], [place] tel:[phone] SEC [facility][note 3] No Information [address] [place]. [address] [facility] , [address], [place], [address], [place]. tel:[phone] Referring Provider: Bridger Michael MD, [address] [place] [address], [address]. tel:[phone] Family History Family Member Type Diagnosis Age At Onset No Information Payers Payer name Insurance type Covered republican ID Authoriza tigordon(s) [employer] SOI CI [id number] Social History Type Description Quantity Date Captured Comments Sex Female Smoking Status No Information Chief Complaint And Reason For Visit No Information Reason For Referral Reason For Referral No Information History Of Present Illness Encounter Date Complaint History Of Prese nt Illness No Information Functional Status Date Functional Assessmen t No Information Instructions Date Instruction Additional Infor mation No Information Assessments Type Assessment Date No Information Patient Care Teams Name Effective Dates (start - stop) Status Members No Information
--- OUTSIDE RECORDS SUMMARY | 2025-04-12 10:12 | XMS_ITS | Clinical Summary ---
Author Organization [facility] Care Team Providers Care Biomedical Equipment Tech Name Role Phone Unavailable Primary Care Provider Unavailabl e Immunizations Immunization Administration Dates Next Due Covid-19, Mrna, Lnp-s, Pf, 30 Mcg/0.3 Ml Dose (P fizer) 01/18/2021,12/20/2020 Social History Tobacco Use Types Packs/Day Years Used Date Smoking Tobacco: Never Assessed Comments Unknown Sex and Gender Information Value Date Recorded Sex Assigned at Not on file Legal Sex Female 3:52 PM CDT Gender Identity Not on file Sexual Orientation Not on file Plan of Treatment Health Maintenance Due Date Last Done Comments Hepatitis C Virus (HCV) Screening 1972 Hepatitis B Immunization (1 of 3 - 19+ 3-dose series) 1991 Colonoscopy 2017 Colorectal Cancer Screening 2017 Cologuard 2022 Immunochemical Fecal Occult Blood 2022 Pneumococcal Immunization (50+ years) (1 of 1 - PCV) 2022 Zoster Immunization (1 of 2) 2022 SARS-COV-2 Immunization (3 - season) 2024 01/18/2021, 12/20/2020 Influenza Immunization (Season Ended) 2025 08/22/2020, 08/15/2013 Respiratory Syncytial Virus (RSV) Immunization (Adult) (1 - 1-dose 75+ series) 2047 DTaP/Tdap/Td Immunization Discontinued 2014, 05/23/1997, 06/27/1987, Additional history exists TdaP Immunization Completed 01/28/2015 Human Papillomavirus (HPV) Immunization Aged Out No longer eligible based on patient's age to complete this topic Meningococcal Immunization (ACWY) Aged Out No longer eligible based on patient's age to complete this topic Rotavirus Immunization Aged Out No lo nger eligible based on patient's age to complete this topic
== END 2025-04-12 10:07 | disposition home or self-care (01) ==
PROVIDERS: PCP Physician Assistant; Visit Provider Physician Assistant
DX: R93.89 Abnormal findings on diagnostic imaging of other specified body structures (principal)
CPT/HCPCS: 71046